=== PATIENT | male | born 1970 | race Caucasian/White ===

== ENCOUNTER 2017-12-27 13:30 | Emergency (ER) | payer BC, SELFPAY ==
[2017-12-27 13:31] VITALS: BP 200/118; PULSE 92; RESP 16; TEMP 36.4; O2SAT 98; BMI 21.7
--- NOTE | 2017-12-27 14:36 | ED.VISSUMM ---
- ER Visit Summary Date of Service: 12/27/17 Chief Complaint: Balance is off History of Present Illness: The patient is a 47 M who was walking home from work on Sunday. He slipped on the ice. He fell backwards striking the back of his head. He states he was dazed. He had no loss of conscious. Is not amnestic. He denies headache presently. He denies any double vision, blurred vision or loss of vision. Denies trouble with his hearing or speech. He denies any cardiac, respiratory, urologic symptoms. He did report nausea on Sunday. He is on no anticoagulant or antiplatelet medication. Physical Examination: Blood pressure is elevated 200 118. Head is atraumatic normocephalic. Pupils are equal round reactive. Extraocular muscles are intact. Optic exam reveals normal cup-to-disc ratio and no papilledema. TMs are pearly white with landmarks noted. Nares patent with no drainage. Posterior pharynx without erythema or exudate. Uvula is midline. There is no dysphonia or dysphasia. Trachea is midline. There is no stridor with auscultation of the neck. There is no cervical spine tenderness. Heart is regular without murmur, gallop or rub. S1 and S2 are normal. Lungs are clear to auscultation with good movement of air bilaterally. GCS is 15. Patient is alert and oriented ?3. Motor is 5/5. Sensation is intact. DTRs are symmetric without clonus or Babinski. Cranial nerves II through XII are intact. Finger to nose to finger was performed adequately. It was observed and normal. He is able to walk on heels and toes. Tandem gait was normal. Romberg test with eyes open and eyes closed was normal. There was no truncal ataxia. Test Results: Recent was told he has a concussion and there is no test that needs to be performed to the emergency department to diagnose a concussion. Emergency Department Course and Treatment: Based on the [place] CT head rule and the [place] rule radiological imaging is not indicated. Treatment Plan: Appropriate home-going instructions for concussion Disposition: To home with work excuse Impression: Concussion without loss of consciousness status post fall Accelerated hypertension and known hypertensive patient This note was generated with eComm[employer] software. It may contain incorrect words, spelling, and punctuation that were not noted in review of the chart prior to signing ED Disposition - Plan for ED Patient: Disposition: Home or Assisted Living Chief Complaint: Head Injury Instructions: ED Concussion, ED Hypertension Conf Out Of Control Referrals: Osorio Hastings DO [Primary Care Provider] - 3-5 Days Additional Instructions: You should follow-up with Dr. Hastings in 3-5 days to have your blood pressure reassessed.
[2017-12-27 14:56] VITALS: BP 191/119; PULSE 77; RESP 18
== END 2017-12-27 14:58 | disposition home or self-care (01) ==
PROVIDERS: Emergency Provider Emergency Medicine; Family Provider Family Medicine; PCP Family Medicine
DX: S06.0X0A Concussion without loss of consciousness, initial encounter (principal); W00.0XXA Fall on same level due to ice and snow, initial encounter; Y93.01 Activity, walking, marching and hiking; Y92.9 Unspecified place or not applicable; Y99.9 Unspecified external cause status; I10 Essential (primary) hypertension; Z72.0 Tobacco use
CPT/HCPCS: 99282

== ENCOUNTER 2017-12-29 18:41 | Emergency (ER) | payer BC, SELFPAY ==
[2017-12-29 18:42] VITALS: BP 161/113; PULSE 85; RESP 17; TEMP 37.2; O2SAT 97; BMI 19.9
--- NOTE | 2017-12-29 19:17 | CT_ITS ---
STUDY: CT BRAIN WITHOUT CONTRAST REASON FOR EXAM: Male, 47 years old. TRAUMA, HIT BACK OF HEAD, NO LOC RADIATION DOSAGE (If Supplied By Facility): CTDIvol = ( 44.99 ) mGy, DLP = ( 812.98 ) mGycm TECHNIQUE: Transaxial CT imaging of the brain was performed without administration of intravenous contrast material. COMPARISON: None. FINDINGS: Normal soft tissue structures. Normal calvarium. There are calcifications around the carotid artery. These are noted in the cavernous carotid arteries. There is mild cerebral atrophy with widening of the extra-axial spaces and ventricular dilatation. There are areas of decreased attenuation within the white matter tracts of the supratentorial brain, consistent with microvascular disease changes. Normal basal ganglia and thalami. Normal brainstem. There is mild cerebellar atrophy. There is no intracranial hemorrhage. There are no findings of an acute ischemic infarction. There is mild maxillary sinus disease. CT/Brain/Head without Contrast IMPRESSION: Chronic involutional changes of the brain. There are no acute findings. Electronically Signed: Bro Cantu MD at 20:04 EST , Service support ,
--- NOTE | 2017-12-29 19:17 | ED.VISSUMM ---
- ER Visit Summary Date of Service: 12/29/17 Chief Complaint: Head trauma History of Present Illness: The patient is a 47 M who presents for his second visit for a head trauma that occurred 4 days ago. Patient slipped and fell backwards on ice 4 days ago, hitting the back of his head. He denies loss of consciousness but was seen 2 days later and diagnosed with a concussion. He did not meet criteria for head imaging at that time. Patient came back because he states that he is continuing to have had pain in the occipital region, that is dull and achy, he is having episodes where he will be watching TV and then wake up 45 minutes later but states he did not actually fall asleep. He also is having some disequilibrium and intermittent blurred vision. Patient denies fever, double vision, abdominal pain, nausea or vomiting, or any other symptoms. He denies an overt headache. Patient states he does drink several beers a day, and he did have 4 beers prior to coming in today. He denies any other medical history. He denies being on blood thinners. Physical Examination: Vital signs: afebrile, hypertensive, no hypoxia on room air General: well nourished, well developed, in no distress sitting in a chair awake and alert Skin: warm, dry, no rash, no pallor HEENT: normocephalic and atraumatic; PERRL, EOMI, horizontal nystagmus bilaterally, moist mucous membranes Cardiovascular: regular rate and rhythm without murmurs, no peripheral edema, 2+ pulses all distal extremities Respiratory: No increased work of breathing, lungs are clear to auscultation bilaterally, no rales, rhonchi or wheezing Abdominal: Abdomen is soft, nontender with normoactive bowel sounds, no guarding or rebound, no masses MSK: Moves all extremities, no deformities, normal strength Neuro: Awake and alert, oriented ?4. No facial droop, sensation and motor function intact and symmetric, steady gait, able to walk on toes and heels, heel-to-toe gait is normal Test Results: [] Emergency Department Course and Treatment: Patient presents 4 days after a head trauma with concussive symptoms but is concerned about a possible intracranial hemorrhage. We discussed the risks and benefits of a head CT, and although a head CT is not indicated in this situation, this is patient's second visit and he feels he would have better reassurance that it is just a concussion if he knows there is no intracranial hemorrhage. Because he is a heavy drinker, he might be more prone to a subsequent fall that he does not remember, thus a head CT was performed. No intracranial pathology or skull fracture was noted. Discussed with patient concussive symptoms and that also with him drinking heavily, it may be difficult to tell the difference between concussive symptoms and intoxication or withdrawal. Patient was encouraged to not drinking heavily, especially until he has completely recovered from his head trauma. Patient is to follow-up with his doctor. He will return if any further concerns. Discharge home. Treatment Plan: [] Disposition: [] Impression: Concussion, subsequent visit This note was generated with [email or web address] dictation software. It may contain incorrect words, spelling, and punctuation that were not noted in review of the chart prior to signing ED Disposition - Plan for ED Patient: Disposition: Home or Assisted Living Chief Complaint: Head Injury Instructions: ED Concussion Referrals: Osorio Hastings, [Primary Care Provider] - 1 Week if not improving Additional Instructions: Your head scan showed no bleeding. Please be moderate in your alcohol use, especially while you are having symptoms from a concussion. Please follow-up with your doctor within 1 week if you are not having improvements. If you have any worsening of your condition, please return the emergency department for another evaluation.
--- NOTE | 2017-12-29 19:20 | ED.DCSUM_ITS ---
- ER Visit Summary Date of Service: 12/29/17 Chief Complaint: Head trauma History of Present Illness: The patient is a 47 M who presents for his second visit for a head trauma that occurred 4 days ago. Patient slipped and fell backwards on ice 4 days ago, hitting the back of his head. He denies loss of consciousness but was seen 2 days later and diagnosed with a concussion. He did not meet criteria for head imaging at that time. Patient came back because he states that he is continuing to have had pain in the occipital region, that is dull and achy, he is having episodes where he will be watching TV and then wake up 45 minutes later but states he did not actually fall asleep. He also is having some disequilibrium and intermittent blurred vision. Patient denies fever, double vision, abdominal pain, nausea or vomiting, or any other symptoms. He denies an overt headache. Patient states he does drink several beers a day, and he did have 4 beers prior to coming in today. He denies any other medical history. He denies being on blood thinners. Physical Examination: Vital signs: afebrile, hypertensive, no hypoxia on room air General: well nourished, well developed, in no distress sitting in a chair awake and alert Skin: warm, dry, no rash, no pallor HEENT: normocephalic and atraumatic; PERRL, EOMI, horizontal nystagmus bilaterally, moist mucous membranes Cardiovascular: regular rate and rhythm without murmurs, no peripheral edema, 2 + pulses all distal extremities Respiratory: No increased work of breathing, lungs are clear to auscultation bilaterally, no rales, rhonchi or wheezing Abdominal: Abdomen is soft, nontender with normoactive bowel sounds, no guarding or rebound, no masses MSK: Moves all extremities, no deformities, normal strength Neuro: Awake and alert, oriented ?4. No facial droop, sensation and motor function intact and symmetric, steady gait, able to walk on toes and heels, heel -to-toe gait is normal Test Results: [] Emergency Department Course and Treatment: Patient presents 4 days after a head trauma with concussive symptoms but is concerned about a possible intracranial hemorrhage. We discussed the risks and benefits of a head CT, and although a head CT is not indicated in this situation, this is patient's second visit and he feels he would have better reassurance that it is just a concussion if he knows there is no intracranial hemorrhage. Because he is a heavy drinker, he might be more prone to a subsequent fall that he does not remember, thus a head CT was performed. No intracranial pathology or skull fracture was noted. Discussed with patient concussive symptoms and that also with him drinking heavily, it may be difficult to tell the difference between concussive symptoms and intoxication or withdrawal. Patient was encouraged to not drinking heavily , especially until he has completely recovered from his head trauma. Patient is to follow-up with his doctor. He will return if any further concerns. Discharge home. Treatment Plan: [] Disposition: [] Impression: Concussion, subsequent visit This note was generated with Koz[employer] dictation software. It may contain incorrect words, spelling, and punctuation that were not noted in review of the chart prior to signing ED Disposition - Plan for ED Patient: Disposition: Home or Assisted Living Chief Complaint: Head Injury Instructions: ED Concussion Referrals: Osorio Hastings, [Primary Care Provider] - 1 Week if not improving Additional Instructions: Your head scan showed no bleeding. Please be moderate in your alcohol use, especially while you are having symptoms from a concussion. Please follow-up with your doctor within 1 week if you are not having improvements. If you have any worsening of your condition, please return the emergency department for another evaluation.
[2017-12-29 20:25] VITALS: BP 170/114; PULSE 91; RESP 16; O2SAT 97
--- NOTE | 2017-12-29 20:32 | ED.DEP ---
ED Disposition - Plan for ED Patient: Disposition: Home or Assisted Living Chief Complaint: Head Injury Instructions: ED Concussion Referrals: Osorio Hastings DO [Primary Care Provider] - 1 Week if not improving Additional Instructions: Your head scan showed no bleeding. Please be moderate in your alcohol use, especially while you are having symptoms from a concussion. Please follow-up with your doctor within 1 week if you are not having improvements. If you have any worsening of your condition, please return the emergency department for another evaluation.
[2017-12-29 20:41] VITALS: PULSE 82; RESP 16; O2SAT 99
== END 2017-12-29 20:41 | disposition home or self-care (01) ==
PROVIDERS: Emergency Provider Emergency Medicine; Family Provider Family Medicine; PCP Family Medicine
DX: S06.0X9D Concussion with loss of consciousness of unspecified duration, subsequent encounter (principal); W00.0XXD Fall on same level due to ice and snow, subsequent encounter; I10 Essential (primary) hypertension; Z72.0 Tobacco use
CPT/HCPCS: 70450; 99283

== ENCOUNTER 2018-02-04 13:18 | Inpatient (IN) | payer BC, SELFPAY ==
[2018-02-04] VITALS (13 sets, daily range): BP systolic 147–190; BP diastolic 79–113; PULSE 73–114; RESP 16–22; TEMP 36.9–38.2; O2SAT 97–100; BMI 20.1; BMI 19.5
--- NOTE | 2018-02-04 13:52 | EKG12_ITS ---
Test Reason : SUBSTANCE ABUSE Blood Pressure : / mmHG Vent. Rate : 110 BPM Atrial Rate : 110 BPM P-R Int : 170 ms QRS Dur : 090 ms QT Int : 322 ms P-R-T Axes : 065 078 043 degrees QTc Int : 435 ms Sinus tachycardia Otherwise normal ECG Confirmed by ZELALEM GUAMAN MD ([id number]), supervising editor trailer YARELIS LYNCH ([id number] on 02/07/2018 2:42:24 PM Referred By: SERGIO Confirmed By:ZELALEM GUAMAN MD
[2018-02-04 14:10] LABS: Absolute Neutrophil Count 4.4 X10^3/uL (2.0-7.7); Basophil# 0.01 X10^3/uL; Basophil% 0.2 % (0-1); Hematocrit 32.9 % (40-54); Lymphocyte % 3.9 % (19-41); Mean Corp Hgb Conc 33.4 g/gl (32-36); Mean Corpuscular Hgb 31.6 pg (27.0-32.0); Mean Corpuscular Volume 94.5 fL (80-94); Mean Platelet Vol. 10.7 fl (6.2-12.0); Monocyte# 0.55 X10^3/uL; Monocyte% 10.7 % (0-10); Neutrophil # 4.37 X10^3/uL (2.7-7.7); RBC Distribution Width SD 52.9 fl (35.1-43.9); Red Blood Count 3.48 M/mm3 (4.6-6.2); White Blood Count 5.1 K/mm3 (4.4-11.0)
[2018-02-04 14:13] LABS: Platelet Count 25 K/mm3 (150-450)
[2018-02-04] MEDS: 0.9% Normal Saline 1,000 ML 1000 ML IV (14:13)
[2018-02-04] MEDS: Ondansetron 4 MG/2 ML Vial IV (14:13)
[2018-02-04 14:14] LABS: Differential Indicated SCAN CRITERIA MET; POSITIVE COUNT YES; POSITIVE DIFFERENTIAL YES; POSITIVE MORPHOLOGY NO
[2018-02-04] MEDS: LORazepam 2 MG/ML Syringe 1 MG IV (14:14)
[2018-02-04 14:17] LABS: ALB/GLOB Ratio 0.8 RATIO (0.9-2.4); AST(SGOT) 161 U/L (15-37); Alanine Aminotransfer ALT/SGPT 57 U/L (16-61); Albumin, Serum 3.6 g/dL (3.2-5.0); Alkaline Phosphatase 507 U/L (45-117); Anion Gap 11 (5-15); BUN 18 mg/dL (7-18); BUN/Creat Ratio 14.4 RATIO (10-20); Calcium,Total 8.8 mg/dL (8.5-10.1); Chloride 108 mmol/L (98-107); Creatinine, Serum 1.25 mg/dL (0.70-1.30); EST Glomerular Filtration Rate 66 mL/min (>60); Est Glom Filt Rate - Afr Amer 80 mL/min (>60); Estimated Creatinine Clearance 73.04 ml/min; Globulin 4.7 g/dL (2.2-4.2); Glucose 133 mg/dL (74-106); Potassium 4.2 mmol/L (3.5-5.1); Protein, Total 8.3 g/dL (6.4-8.2); Sodium Level 141 mmol/L (136-145)
--- NOTE | 2018-02-04 14:24 | ED.RN ---
Platelet count 25, physician notified.
[2018-02-04 14:29] LABS: Alcohol, Blood (Medical)-Serum < 3.0 mg/dL
[2018-02-04 15:08] LABS: Mucous, Urine 0 SEEN /hpf (<or=2+)
[2018-02-04 15:12] LABS: Color, Urine Yellow (Yellow); Glucose, Dipstick Normal (Normal); Ketone-Dipstick 50 mg/dl (Negative); Leukocyte Esterase-Dipstick 25 /ul (Negative); Nitrite-Dipstick Negative (Negative); Occult Blood-Urine 150 /ul (Negative); Protein-Dipstick 30 mg/dl (Negative); Specific Gravity, Urine 1.015 (1.002-1.030); Urine Clarity Clear (Clear); Urine Urobilinogen 8 mg/dl (Normal)
[2018-02-04 15:19] LABS: Urine Bilirubin Dipstick 3 mg/dL (Negative)
[2018-02-04 15:23] LABS: Bacteria 1+ /hpf (None Seen); Red Blood Cells-Urine 0-5 SEEN /hpf (0-5); Squamous Epithelial Cells - UA 0-5 SEEN /hpf (0-5); White Blood Cells 0-5 SEEN /hpf (0-5)
[2018-02-04 15:24] LABS: Hyaline Cast 0-5 SEEN /lpf (0-5)
[2018-02-04 15:25] LABS: Amphetamine Urine VISTA NEGATIVE (<1000 ng/mL); Barbiturate Urine VISTA NEGATIVE (< 200 ng/mL); Benzodiazepine Urine VISTA NEGATIVE (< 200 ng/mL); Cocaine Urine VISTA NEGATIVE (< 300 ng/mL); Ecstacy Urine VISTA NEGATIVE (< 500 ng/mL); Methadone Urine VISTA NEGATIVE (< 300 ng/mL); PCP Urine VISTA NEGATIVE (< 25 ng/mL); THC Urine VISTA NEGATIVE (< 50 ng/mL); Vista UDS pH Range 6
--- NOTE | 2018-02-04 15:47 | ED.VISSUMM ---
- ER Visit Summary Date of Service: 02/04/18 Chief Complaint: Alcohol withdrawal History of Present Illness: The patient is a 47 M with alcohol withdrawal. Drink was yesterday evening. He was drinking a 12 pack of beer per day. No other drug use. He has a history of DTs but no history of seizures. His last clean and sober. Was about 6-8 months ago. He also reports a history of hypertension. Physical Examination: Hypertensive and tachycardic. Actively vomiting. Appears very uncomfortable. Heart tachycardic but regular. Lungs clear. Abdomen soft and nontender. Moves all extremities. No focal or lateralizing abnormalities grossly. His any suicidal or homicidal thoughts. Test Results: Hemoglobin 11 and platelets 25. CMP unremarkable. Urinalysis unremarkable. Tox screen and alcohol unremarkable. EKG shows sinus tach with no signs of acute ischemia or infarction. Emergency Department Course and Treatment: She received fluids, Ativan, and Zofran while awaiting results. On reassessment, heart rate is 100. He feels much better. He looks objectively better. I believe patient would benefit from inpatient evaluation and treatment for alcohol withdrawal. I spoke with the hospitalist who will admit. Treatment Plan: As above Disposition: Admission to [facility] with telemetry Impression: 1. Alcohol withdrawal 2. Anemia 2. Thrombocytopenia This note was generated with Algot[employer] dictation software. It may contain incorrect words, spelling, and punctuation that were not noted in review of the chart prior to signing ED Disposition - Plan for ED Patient: Chief Complaint: Subst Abuse Referrals: Osorio Hastings DO [Primary Care Provider] -
--- NOTE | 2018-02-04 15:50 | ED.DCSUM_ITS ---
- ER Visit Summary Date of Service: 02/04/18 Chief Complaint: Alcohol withdrawal History of Present Illness: The patient is a 47 M with alcohol withdrawal. Drink was yesterday evening. He was drinking a 12 pack of beer per day. No other drug use. He has a history of DTs but no history of seizures. His last clean and sober. Was about 6-8 months ago. He also reports a history of hypertension. Physical Examination: Hypertensive and tachycardic. Actively vomiting. Appears very uncomfortable. Heart tachycardic but regular. Lungs clear. Abdomen soft and nontender. Moves all extremities. No focal or lateralizing abnormalities grossly. His any suicidal or homicidal thoughts. Test Results: Hemoglobin 11 and platelets 25. CMP unremarkable. Urinalysis unremarkable. Tox screen and alcohol unremarkable. EKG shows sinus tach with no signs of acute ischemia or infarction. Emergency Department Course and Treatment: She received fluids, Ativan, and Zofran while awaiting results. On reassessment, heart rate is 100. He feels much better. He looks objectively better. I believe patient would benefit from inpatient evaluation and treatment for alcohol withdrawal. I spoke with the hospitalist who will admit. Treatment Plan: As above Disposition: Admission to [facility] with telemetry Impression: 1. Alcohol withdrawal 2. Anemia 2. Thrombocytopenia This note was generated with [employer] dictation software. It may contain incorrect words, spelling, and punctuation that were not noted in review of the chart prior to signing ED Disposition - Plan for ED Patient: Chief Complaint: Subst Abuse Referrals: Osorio Hastings DO [Primary Care Provider] -
--- NOTE | 2018-02-04 15:59 | PCM.HP.STD ---
Problem List (1) Alcohol withdrawal Status: Acute (2) Vomiting Status: Acute Qualifiers: Vomiting type: hematemesis (3) Thrombocytopenia Status: Chronic (4) Esophageal varices Status: Chronic (5) Alcoholism Status: Chronic (6) Depression Status: Chronic (7) Hypertension Status: Chronic History of Present Illness Date of Admission: 02/04/18 Chief Complaint: Nausea and vomiting The patient is a 47 year old M alcoholic who presents to the ER with severe nausea and vomiting. This began last night. He drinks about a 12 pack per day, last sober in 2016. He stated that he initially vomited up a large amount of red blood, and that the rest of the episodes of vomiting had small amounts of red blood. This morning he moved his bowels and saw red blood in that as well. He states that he has a history of bleeding esophageal varices and has had EGDs in the past. His platelets are low at 25 and he states that he has had this in the past as well. He has been inpatient for detox one other time several years ago, and denies having any witnessed seizures, or admission requiring intubation and sedation, but does have a history of DTs. He has some mild LLQ abdominal discomfort. He has no fevers or chills. He feels somewhat lightheaded. [] Past Medical History Past Medical History (Chronic Problems): Chronic Problems Thrombocytopenia (Chronic) Esophageal varices (Chronic) Alcoholism (Chronic) Depression (Chronic) Hypertension (Chronic) Allergies No Known Allergies Allergy (Verified 02/04/18 13:27) Home Medications: Ambulatory Orders Medication Instructions Recorded Multivitamins,Ther W-Minerals 1 tablet PO DAILY 08/13/14 [Multivitamin With Minerals] Losartan Potassium 50 mg PO DAILY 12/27/17 Prednisone 10 mg PO PRN PRN 12/27/17 Clonidine HCl 0.1 mg PO 4X/DAY 02/04/18 Surgical History: - - Right and left wrist surgery secondary to fracture Psychiatric History: Depression Lives: Alone Smoking Status: Current every day smoker Tobacco Use: Cigarettes Alcohol: Heavy Drugs: None - *Family History Maternal History Items: - - brain aneurysm Paternal History Items: Hypertension, - - alcoholism Sibling History Items: No pertinent history Review of Systems Constitutional: Denies: Chills, Fever, Weight Change HEENT: Denies: Head Aches, Sinus Congestion, Sinus Drainage Cardiovascular: Denies: Chest Pain, Palpitations Respiratory: Denies: Cough, Shortness of breath at rest, Sputum production Gastrointestinal: Reports: Abdominal Pain, Hematemesis, Hematochezia, Nausea, Vomiting Genitourinary: Denies: Dysuria Musculoskeletal: Denies: Joint Pain, Joint Tenderness Skin: Denies: Rash, Wounds Neurological: Denies: Numbness, Tingling, Focal weakness Psychiatric: Denies: Anxiety, Depression, Homicidal Ideations, Suicidal Ideations Hematologic/ Lymphatic: Denies: Easy Bruising, Easy Bleeding VTE Information - Inpt Only VTE Present on Admission: No VTE Mechan Device Prophylaxis: SCD's VTE Pharm Prophylaxis ordered?: No Reason prophylaxis not ordered:: Medical Contraindication Patient Problems: Active and Suspected Problems Vomiting (Acute) - Physical Exam General: Alert, Oriented x3, Cooperative HEENT: Atraumatic, PERRLA, EOMI, Normocephalic Neck: Supple, No JVD, Negative Carotid Bruits Lungs: Clear to auscultation, Normal air movement Cardiovascular: Regular rate, No murmurs Abdomen: Bowel Sounds Present, Soft, Non Tender Extremities: No edema, Capillary Refill Less than 3 Seconds Skin: No rashes, No breakdown Musculoskeletal: No Tenderness to Palpation of Joints or Extremities Neurological: Cranial nerves II-XII grossly intact Psych/Mental Status: Normal Affect, Appropriate, Alert and oriented to time, place, person, mood and affect Vital Signs Temp Pulse Resp BP Pulse Ox 99.1 F 96 16 182/90 H 99 02/04/18 13:21 02/04/18 15:17 02/04/18 15:17 02/04/18 15:17 02/04/18 15:17 Oxygen Delivery Method Room Air Weight: 69.2 kg Body Mass Index (BMI) 20.1 Laboratory Tests Past 24 Hrs 02/04/18 02/04/18 02/04/18 13:53 13:53 13:53 WBC 5.1 RBC 3.48 L Hgb 11.0 L Hct 32.9 L MCV 94.5 H MCH 31.6 MCHC 33.4 RDW 16.0 H RDW Differential 52.9 H Plt Count 25 L* MPV 10.7 Immature Gran % (Auto) 0.200 Neut % (Auto) 85.0 H Lymph % (Auto) 3.9 L [place] % (Auto) 10.7 H Eos % (Auto) 0.0 Baso % (Auto) 0.2 Absolute Neuts (auto) 4.4 Absolute Lymphs (auto) 0.20 L Total Counted Not Reportable Differential Comment COMMENT Diff Path Review May foll Sodium 141 Potassium 4.2 Chloride 108 H Carbon Dioxide 22.0 Anion Gap 11 BUN 18 Creatinine 1.25 Estim Creat Clear Calc 73.04 Est GFR (MDRD) Af Amer 80 Est GFR (MDRD) Non-Af 66 BUN/Creatinine Ratio 14.4 Glucose 133 H Calcium 8.8 Total Bilirubin 3.30 H AST 161 H ALT 57 Alkaline Phosphatase 507 H Total Protein 8.3 H Albumin 3.6 Globulin 4.7 H Albumin/Globulin Ratio 0.8 L Urine Color Urine Clarity Urine pH Ur Specific [place] Urine Protein Urine Glucose (UA) Urine Ketones Urine Occult Blood Urine Nitrite Urine Bilirubin Urine Urobilinogen Ur Leukocyte Esterase Urine RBC Urine WBC Ur Squamous Epith Cells Urine Bacteria Hyaline Casts Urine Mucus Urine Opiates Screen Urine Methadone Screen Ur Barbiturates Screen Ur Phencyclidine Scrn Ur Amphetamines Screen U Methamphetamin-MDMA U Benzodiazepines Scrn Urine Cocaine Screen U Cannabinoids Screen Ur Drug Screen Comment Ethyl Alcohol < 3.0 02/04/18 02/04/18 15:01 15:01 WBC RBC Hgb Hct MCV MCH MCHC RDW RDW Differential Plt Count MPV Immature Gran % (Auto) Neut % (Auto) Lymph % (Auto) [place] % (Auto) Eos % (Auto) Baso % (Auto) Absolute Neuts (auto) Absolute Lymphs (auto) Total Counted Differential Comment Diff Path Review Sodium Potassium Chloride Carbon Dioxide Anion Gap BUN Creatinine Estim Creat Clear Calc Est GFR (MDRD) Af Amer Est GFR (MDRD) Non-Af BUN/Creatinine Ratio Glucose Calcium Total Bilirubin AST ALT Alkaline Phosphatase Total Protein Albumin Globulin Albumin/Globulin Ratio Urine Color Yellow Urine Clarity Clear Urine pH 6.0 Ur Specific [place] 1.015 Urine Protein 30 H Urine Glucose (UA) Normal Urine Ketones 50 H Urine Occult Blood 150 H Urine Nitrite Negative Urine Bilirubin 3 H Urine Urobilinogen 8 H Ur Leukocyte Esterase 25 H Urine RBC 0-5 SEEN Urine WBC 0-5 SEEN Ur Squamous Epith Cells 0-5 SEEN Urine Bacteria 1+ Hyaline Casts 0-5 SEEN Urine Mucus 0 SEEN Urine Opiates Screen NEGATIVE Urine Methadone Screen NEGATIVE Ur Barbiturates Screen NEGATIVE Ur Phencyclidine Scrn NEGATIVE Ur Amphetamines Screen NEGATIVE U Methamphetamin-MDMA NEGATIVE U Benzodiazepines Scrn NEGATIVE Urine Cocaine Screen NEGATIVE U Cannabinoids Screen NEGATIVE Ur Drug Screen Comment Ethyl Alcohol Assessment/Plan Active and Suspected Problems Vomiting (Acute) 1. Acute alcohol withdrawal - initiate CIWA protocol, thiamine and folic acid supplementation. Ativan + librium. Drinks 12 beers/day. Start IV fluids. Check Mag/Phos 2. Hematemesis and Bloody stools - hx bleeding esophageal varices, very concerning with thrombocytopenia. Provide 5pack platelets. Serial H/H. IV protonix. Consult to general surgery. T/S. Clear liquid diet. 3. Elevated LFTs - abdominal US to assess for ascites. Check Hepatitis panel 4. Acute blood loss anemia 2/2 #2 - plan as above 5. HTN - significantly elevated. start home meds if able to tolerate. PRN lopressor/hydralazine if remains significantly elevated. DVT ppx: SCDs, no chemoppx with bleeding DC planning: pending clinical course This patient was seen by Fan Lieberman PA-C under the supervision of Doctor Miles.
--- NOTE | 2018-02-04 16:03 | NURSING ---
206 ACUTE ETOH WITHDRAWAL, HX DTS WHITE
--- NOTE | 2018-02-04 16:10 | US_ITS ---
STUDY: ABDOMINAL ULTRASOUND REASON FOR EXAM: Male, 47 years old. Elevated LFT TECHNIQUE: Transabdominal ultrasound was performed with real-time and static gutierrez scale imaging. TECHNICAL QUALITY: Adequate. COMPARISON: None. FINDINGS: Liver: The liver measures 18.2 cm. There is heterogeneous echogenicity of the liver. The bile ducts are within normal limits. There is hepatic color flow. The direction of portal flow is hepatopetal. There is no demonstrated mass lesion. Portal vein measurement: Gallbladder: Normal distended gallbladder. The gallbladder wall measures 2 mm. There is a negative sonographic Pandey's sign. There is no pericholecystic fluid. There are multiple gallstones. Common Bile Duct (C.B.D.): The common bile duct measures 4 mm. Pancreas: Normal size of the head, body and tail of the pancreas. There is normal echogenicity of the pancreas. There is no demonstrated pancreatic mass or cyst. Spleen: Spleen is enlarged measuring 14 cm. Right Kidney: Normal size of the right kidney. The right kidney measures 10.5 x 5.3 x 6.2 cm. Normal renal cortex. The right cortex measures 1.4 cm. There is no demonstrated renal mass or cyst. There is no right hydronephrosis. Left Kidney: Normal size of the left kidney. The left kidney measures 12.6 x 4.6 x 5.3 cm. Normal renal cortex. The left cortex measures 1.8 cm. There are small cysts the largest measuring 5 mm. There is no left hydronephrosis. Aorta: No evidence for aortic aneurysm I.V.C.: The IVC is patent. There is no ascites. US/Abdomen Complete IMPRESSION: Hepatosplenomegaly due to hepatocellular disease. Cholelithiasis without evidence for acute cholecystitis Electronically Signed: José Miguel Baptiste MD at 19:33 EDT , Service support ,
[2018-02-04] MEDS: Ondansetron ODT 4 MG Tablet PO (17:26)
[2018-02-04] MEDS: Lactated Ringers 1,000 ML 125 ML IV (17:26)
[2018-02-04] MEDS: cloNIDine HCl 0.1 MG Tablet PO ×2 (17:28→22:18)
[2018-02-04] MEDS: chlordiazePOXIDE 25 MG Capsule 50 MG PO (17:30)
[2018-02-04 18:01] LABS: Hemoglobin 10.1 g/dl (13.0-16.5)
[2018-02-04] MEDS: QUEtiapine 25 MG Tablet PO (18:13)
[2018-02-04 18:28] LABS: Magnesium 2.3 mg/dL (1.6-2.6); Phosphorus 2.4 mg/dL (2.5-4.9)
--- NOTE | 2018-02-04 19:12 | CT_ITS ---
STUDY: CT ABDOMEN AND PELVIS WITHOUT CONTRAST REASON FOR EXAM: Male, 47 years old. Pain with nausea and vomiting RADIATION DOSAGE (If Supplied By Facility): CTDIvol = ( 6.64 ) mGy, DLP = ( 360.04 ) mGycm TECHNIQUE: Transaxial images were obtained from the dome of the diaphragm to the symphysis pubis without oral contrast, and without intravenous contrast. Sagittal and coronal images were reconstructed. Individualized dose optimization techniques were used for this CT. COMPARISON: None. FINDINGS: There is minor atelectasis within the dependent portion of the lungs.. The visualized portions of the heart are within normal limits. Small hiatal hernia is present Liver is enlarged more pronounced on the left and there is multilobulated appearance consistent with cirrhosis. There are no dilated ducts. There are focal areas of decreased echogenicity consistent with multiple space-occupying lesions which are poorly defined. MRI recommended for further evaluation There is borderline splenomegaly . There are multiple gallstones but no evidence for acute cholecystitis. There are extensive gastroesophageal, perigastric, splenorenal and retroperitoneal varices consistent with portal hypertension. Normal pancreas. Mild diffuse mesenteric edema but no appreciable ascites. Normal bilateral adrenal glands. There are multiple bilateral renal calculi. No evidence for hydronephrosis or ureteral calculus. There is no definitive evidence for renal mass given limited unenhanced nature of the study. There is concentric thickening of the escobedo of the gastric fundus with narrowing of the lumen which may be consistent with nonspecific gastritis.. There is mild nonspecific ileus but no evidence for small bowel obstruction. Normal colon. No evidence for acute appendicitis. Atherosclerotic calcification of the aorta without evidence for aneurysm.. Normal inferior vena cava. Normal retroperitoneum. Normal urinary bladder. Nonspecific enlargement of the prostate. Normal abdominal wall. Normal osseous structures. CT/Abdomen/Pelvis without Cont IMPRESSION: Findings consistent with hepatic cirrhosis and splenomegaly with changes of portal hypertension. There appear to be multiple poorly defined space-occupying lesions. MRI would be helpful for more definitive evaluation Cholelithiasis without definitive evidence for acute cholecystitis. Findings consistent with nonspecific gastritis. Bilateral nephrolithiasis without evidence for hydronephrosis or ureteral calculus Other findings as above Electronically Signed: José Miguel Baptiste MD at 20:22 EDT , Service support ,
--- NOTE | 2018-02-04 19:13 | CON.PCM_ITS ---
Reason for Consult Date of Consultation: 02/04/18 History of Present Illness: The patient is a 47 year old M admitted for alcohol withdrawal, impending delirium tremens , and hematemesis secondary to vomiting. the patient has a long -standing history of alcohol abuse. He states he has had endoscopy performed at least 10 years back when he lived in [place], which demonstrated esophageal varices. The patient was admitted to [facility] in June 2013 with alcohol withdrawal symptoms, alcohol abuse , alcoholic hepatitis, and GI bleeding at which point he had upper endoscopy which demonstrated significant varices which were banded at that time. Ultrasound was obtained which demonstrated a nodular liver consistent with cirrhosis and is felt to be negative for ascites. the patient notes he usually drinks 12 or so beers per day and the past has been drinking vodka heavily. 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 He attempted again to stop his alcohol intake. He noted shaking, agitation, nausea, and vomiting he initially noted vomiting his foodstuffs. Later he noted blood in his vomitus. he presented to [facility] emergency department. He was initially somewhat agitated, but after receiving IV benzodiazepines , he stabilized. his hemoglobin dropped from 11 to 10gm. his platelet count is 25,000 platelets. his bilirubin is elevated at 3.3. coags are pending. He is currently resting comfortably. He has no sign of ongoing bleeding. Past Medical History Past Medical History (Chronic Problems): Chronic Problems Thrombocytopenia (Chronic) Esophageal varices (Chronic) Alcoholism (Chronic) Depression (Chronic) Hypertension (Chronic) Allergies No Known Allergies Allergy (Verified 02/04/18 13:27) Home Medications: Ambulatory Orders Medication Instructions Recorded Multivitamins,Ther W-Minerals 1 tablet PO DAILY 08/13/14 [Multivitamin With Minerals] Losartan Potassium 50 mg PO DAILY 12/27/17 Prednisone 10 mg PO PRN PRN 12/27/17 Clonidine HCl 0.1 mg PO 4X/DAY 02/04/18 Surgical History: - - Right and left wrist surgery secondary to fracture Psychiatric History: Depression Lives: Alone Smoking Status: Current every day smoker Tobacco Use: Cigarettes Alcohol: Heavy Drugs: None - *Family History Maternal History Items: - - brain aneurysm Paternal History Items: Hypertension, - - alcoholism Sibling History Items: No pertinent history Review of Systems Constitutional: Reports: Anorexia, Malaise, Weakness Gastrointestinal: Reports: Hematemesis, Vomiting Patient Problems: Active and Suspected Problems Vomiting (Acute) - Physical Exam General: Alert, Oriented x3, - - icteric. Pupils Lungs: Normal air movement, Rhonchi - bases Cardiovascular: Regular rate, Regular Rhythm Abdomen: Bowel Sounds Present, Soft, Non Tender, Hepatomegaly - -likely,, Splenomegaly - likely, ? shifting dullness ? mild ascites Vital Signs Temp Pulse Resp BP Pulse Ox 99.7 F H 96 16 152/88 H 97 02/04/18 17:58 02/04/18 18:10 02/04/18 17:58 02/04/18 17:58 02/04/18 16:57 Oxygen Delivery Method Room Air Weight: 67 kg Body Mass Index (BMI) 19.5 Laboratory Tests Past 24 Hrs 02/04/18 02/04/18 02/04/18 17:33 17:33 17:33 Hgb 10.1 L Hct 31.0 L Phosphorus 2.4 L Magnesium 2.3 Blood Type Pending Assessment/Plan Active and Suspected Problems Vomiting (Acute) alcoholic liver disease, alcohol withdrawal, impending delirium tremens, hematemesis, history of esophageal varices I have discussed with the patient and Dr. Miles, the severe risk with bleeding varices and severe thrombocytopenia. His hemoglobin overall seems relatively stable. Hopefully, this was a Mary-Henderson tear was vomiting and not variceal bleeding. If the patient has significantly increased or recurrent bleeding-may require emergency upper endoscopy with possible banding. We discussed if he has unstable bleeding. The next step would be transfer for emergency TIPS procedure. I plan to obtain an ammonia level as a baseline in the event that emergency TIPS is considered. The patient will be transfused platelets. He is currently being appropriately treated for his alcohol withdrawal symptoms. I plan to obtain a CT scan of the abdomen and pelvis to assess for hepatosplenomegaly and other sequelae of cirrhosis including ascites.
--- NOTE | 2018-02-04 21:28 | RAD_ITS ---
STUDY: X-RAY CHEST REASON FOR EXAM: Male, 47 years old. Cough TECHNIQUE: PA and lateral COMPARISON: November 17, 2014 FINDINGS: The lungs are clear and expanded. There is no demonstrated pleural abnormality. Normal size heart. Normal mediastinum and venkatesh. Normal visualized pulmonary arteries. Normal visualized aortic arch and descending thoracic aorta. Normal visualized thoracic spine. Normal visualized ribs, clavicles, and shoulders. There is no demonstrated abnormality of the visualized soft tissue structures of the upper abdomen. No significant change since prior study RAD/Chest PA and Lateral IMPRESSION: No acute cardiopulmonary pathology Electronically Signed: José Miguel Baptiste MD at 22:01 EDT , Service support ,
[2018-02-04] MEDS: traZODone 50 MG Tablet PO (22:18)
[2018-02-04] MEDS: 0.9% NaCl Peripheral Flush Adult/Peds IV (22:19)
[2018-02-05] VITALS (11 sets, daily range): BP systolic 135–156; BP diastolic 84–99; PULSE 53–75; RESP 16–18; TEMP 36.6–37.3; O2SAT 97–100
[2018-02-05] MEDS: chlordiazePOXIDE 25 MG Capsule 50 MG PO ×4 (00:03→20:44)
[2018-02-05 01:47] LABS: Hematocrit 29.3 % (40-54); Hemoglobin 9.5 g/dl (13.0-16.5); Mean Corp Hgb Conc 32.4 g/gl (32-36); Mean Corpuscular Hgb 31.6 pg (27.0-32.0); Mean Corpuscular Volume 97.3 fL (80-94); Mean Platelet Vol. 9.8 fl (6.2-12.0); RBC Distribution Width SD 56.7 fl (35.1-43.9); Red Blood Count 3.01 M/mm3 (4.6-6.2); White Blood Count 3.5 K/mm3 (4.4-11.0)
[2018-02-05 01:54] LABS: International Normalized Ratio 1.2; Prothrombin Time (Protime)PT. 15.1 SECONDS (11.7-14.9)
[2018-02-05 02:07] LABS: Scan Indicated on CBC? Y/N YES- FLAGS NOTED
[2018-02-05 02:08] LABS: Differential Comment SCAN; Platelet Count 34 K/mm3 (150-450)
[2018-02-05] MEDS: cloNIDine HCl 0.1 MG Tablet PO ×5 (02:21→21:59)
[2018-02-05 05:16] LABS: Absolute Lymphocyte Count 0.34 X10^3/ul (0.83-4.51); Absolute Neutrophil Count 2.3 X10^3/uL (2.0-7.7); Basophil# 0.01 X10^3/uL; Basophil% 0.3 % (0-1); Eosinophils% 3.1 % (0-5); Hematocrit 29.4 % (40-54); Hemoglobin 9.8 g/dl (13.0-16.5); Lymphocyte # 0.34 X10^3/ul (4.0); Lymphocyte % 10.4 % (19-41); Mean Corp Hgb Conc 33.3 g/gl (32-36); Mean Corpuscular Hgb 32.5 pg (27.0-32.0); Mean Corpuscular Volume 97.4 fL (80-94); Mean Platelet Vol. 10.8 fl (6.2-12.0); Monocyte# 0.53 X10^3/uL; Monocyte% 16.3 % (0-10); Neutrophil # 2.27 X10^3/uL (2.7-7.7); Neutrophil % 69.6 % (47-70); Red Blood Count 3.02 M/mm3 (4.6-6.2); White Blood Count 3.3 K/mm3 (4.4-11.0)
[2018-02-05 05:18] LABS: Differential Indicated SCAN CRITERIA MET; POSITIVE COUNT YES; POSITIVE DIFFERENTIAL YES; POSITIVE MORPHOLOGY NO
[2018-02-05 05:33] LABS: ALB/GLOB Ratio 0.8 RATIO (0.9-2.4); AST(SGOT) 140 U/L (15-37); Alanine Aminotransfer ALT/SGPT 51 U/L (16-61); Albumin, Serum 3.1 g/dL (3.2-5.0); Alkaline Phosphatase 410 U/L (45-117); Anion Gap 11 (5-15); BUN 15 mg/dL (7-18); Chloride 105 mmol/L (98-107); EST Glomerular Filtration Rate 86 mL/min (>60); Est Glom Filt Rate - Afr Amer 104 mL/min (>60); Globulin 3.9 g/dL (2.2-4.2); Glucose 80 mg/dL (74-106); Potassium 3.3 mmol/L (3.5-5.1); Sodium Level 140 mmol/L (136-145)
[2018-02-05 06:08] LABS: Platelet Count 32 K/mm3 (150-450)
[2018-02-05] MEDS: Thiamine Hydrochloride 100 MG Tablet PO (07:50)
[2018-02-05] MEDS: Multivitamins,Ther W-Minerals Tablet 1 TABLET PO (07:50)
[2018-02-05] MEDS: Folic Acid 1 MG Tablet PO (07:50)
[2018-02-05 08:32] LABS: Pathologist Review Reviewed
[2018-02-05] MEDS: 0.9% NaCl Peripheral Flush Adult/Peds IV ×2 (08:55→12:45)
[2018-02-05] MEDS: Losartan Potassium 50 MG Tablet PO (09:03)
[2018-02-05] MEDS: Docusate Sodium 100 MG Capsule PO ×2 (09:03→21:59)
[2018-02-05 10:17] LABS: Hematocrit 30.2 % (40-54); Hemoglobin 9.8 g/dl (13.0-16.5)
--- NOTE | 2018-02-05 13:06 | PN_ITS ---
<Fan Lieberman - Last Filed: 02/05/18 12:59> Patient Problems: Active and Suspected Problems Vomiting (Acute) Subjective: Pt doing well this AM. He has not vomited since being in the ER. He has no nausea. He ate breakfast this AM with no nausea. No dizziness or LH. He has a tremor in his BLUE. No hallucinations. No fever or chills. No SOB/cough. No abdominal distention. No LE edema. - Physical Exam General: Alert, Oriented x3, Cooperative HEENT: Atraumatic, PERRLA, EOMI, Normocephalic Neck: Supple, No JVD, Negative Carotid Bruits Lungs: Clear to auscultation, Normal air movement Cardiovascular: Regular rate, No murmurs Abdomen: Bowel Sounds Present, Soft, Non Tender Extremities: No edema, Capillary Refill Less than 3 Seconds Skin: No rashes, No breakdown Musculoskeletal: No Tenderness to Palpation of Joints or Extremities Neurological: Cranial nerves II-XII grossly intact, - - Upper extremity tremor. Psych/Mental Status: Normal Affect, Appropriate, Alert and oriented to time, place, person, mood and affect Vital Signs Temp Pulse Resp BP Pulse Ox 99.1 F 68 18 150/99 H 98 02/05/18 10:00 02/05/18 10:00 02/05/18 10:00 02/05/18 10:00 02/05/18 10:00 Oxygen Delivery Method Room Air Weight: 67 kg Body Mass Index (BMI) 19.5 Intake and Output for Last 24 Hours 02/03/18 02/04/18 02/05/18 23:59 23:59 23:59 Intake Total 1346 / 1346 3002 / 3002 Output Total 1625 / 1625 Balance 1346 / 1346 1377 / 1377 Laboratory Tests Past 24 Hrs 02/04/18 02/04/18 02/04/18 17:33 17:33 17:33 WBC RBC Hgb 10.1 L Hct 31.0 L MCV MCH MCHC RDW RDW Differential Plt Count MPV Immature Gran % (Auto) Neut % (Auto) Lymph % (Auto) Hettinger % (Auto) Eos % (Auto) Baso % (Auto) Absolute Neuts (auto) Absolute Lymphs (auto) Total Counted Differential Comment Diff Path Review PT INR Sodium Potassium Chloride Carbon Dioxide Anion Gap BUN Creatinine Estim Creat Clear Calc Est GFR (MDRD) Af Amer Est GFR (MDRD) Non-Af BUN/Creatinine Ratio Glucose Calcium Phosphorus 2.4 L Magnesium 2.3 Total Bilirubin AST ALT Alkaline Phosphatase Ammonia Total Protein Albumin Globulin Albumin/Globulin Ratio Blood Type A POSITIVE 02/05/18 02/05/18 02/05/18 01:24 01:24 04:56 WBC 3.5 L 3.3 L RBC 3.01 L 3.02 L Hgb 9.5 L 9.8 L Hct 29.3 L 29.4 L MCV 97.3 H 97.4 H MCH 31.6 32.5 H MCHC 32.4 33.3 RDW 16.0 H 16.0 H RDW Differential 56.7 H 55.0 H Plt Count 34 L* 32 L* MPV 9.8 10.8 Immature Gran % (Auto) 0.300 Neut % (Auto) 69.6 Lymph % (Auto) 10.4 L Hettinger % (Auto) 16.3 H Eos % (Auto) 3.1 Baso % (Auto) 0.3 Absolute Neuts (auto) 2.3 Absolute Lymphs (auto) 0.34 L Total Counted Not Reportable Differential Comment SCAN Diff Path Review May foll PT 15.1 H INR 1.2 Sodium Potassium Chloride Carbon Dioxide Anion Gap BUN Creatinine Estim Creat Clear Calc Est GFR (MDRD) Af Amer Est GFR (MDRD) Non-Af BUN/Creatinine Ratio Glucose Calcium Phosphorus Magnesium Total Bilirubin AST ALT Alkaline Phosphatase Ammonia Total Protein Albumin Globulin Albumin/Globulin Ratio Blood Type 02/05/18 02/05/18 02/05/18 04:56 04:56 10:05 WBC RBC Hgb 9.8 L Hct 30.2 L MCV MCH MCHC RDW RDW Differential Plt Count MPV Immature Gran % (Auto) Neut % (Auto) Lymph % (Auto) Hettinger % (Auto) Eos % (Auto) Baso % (Auto) Absolute Neuts (auto) Absolute Lymphs (auto) Total Counted Differential Comment Diff Path Review PT INR Sodium 140 Potassium 3.3 L Chloride 105 Carbon Dioxide 24.0 Anion Gap 11 BUN 15 Creatinine 1.00 Estim Creat Clear Calc 88.40 Est GFR (MDRD) Af Amer 104 Est GFR (MDRD) Non-Af 86 BUN/Creatinine Ratio 15.0 Glucose 80 Calcium 8.0 L Phosphorus Magnesium Total Bilirubin 2.50 H AST 140 H ALT 51 Alkaline Phosphatase 410 H Ammonia 47.0 H Total Protein 7.0 Albumin 3.1 L Globulin 3.9 Albumin/Globulin Ratio 0.8 L Blood Type Medical Necessity - Tobacco Use Smoking Status: Current every day smoker Tobacco Use: Cigarettes Assessment/Plan Active and Suspected Problems Vomiting (Acute) 1. Acute alcohol withdrawal - continue CIWA protocol with librium, ativan, folate, thiamine. Stable. Tox screen negative. 2. Hematemesis and Bloody stools - hx bleeding esophageal varices, very concerning with thrombocytopenia. Somewhat improved with Platelets 5 pack. Surgery following. No further nausea or vomiting. Hgb stable. Protonix drip. 3. Elevated LFTs - abdominal US to assess for ascites. Check Hepatitis panel 4. Acute blood loss anemia 2/2 #2 - plan as above 5. HTN -improved. still running high. 6. hypokalemia/hypophosphatemia - replete. DVT ppx: SCDs, no chemoppx with bleeding DC planning: pending clinical course. If he rebleeds he might need transfer. This patient was seen by Fan Lieberman PA-C under the supervision of Doctor Kamar. <Renzo Galvin - Last Filed: 02/05/18 17:17> Subjective: Patient has history of alcoholic cirrhosis, last EGD about more than 5 years ago ; does not remember the details. Patient had platelet transfusion. Patient had total of 3 episodes of GI bleed, 2 hematemesis and 1 hematochezia. - Physical Exam General: Alert, Oriented x3, Cooperative HEENT: Atraumatic, PERRLA, EOMI, Normocephalic Neck: Supple, No JVD, Negative Carotid Bruits Lungs: Clear to auscultation, Normal air movement Cardiovascular: Regular rate, No murmurs Abdomen: Bowel Sounds Present, Soft, Non Tender Extremities: No edema, Capillary Refill Less than 3 Seconds Skin: No rashes, No breakdown Musculoskeletal: No Tenderness to Palpation of Joints or Extremities Neurological: Cranial nerves II-XII grossly intact Psych/Mental Status: Normal Affect, Appropriate Vital Signs Temp Pulse Resp BP Pulse Ox 98.8 F 74 18 141/90 H 98 02/05/18 14:00 02/05/18 14:00 02/05/18 14:00 02/05/18 14:00 02/05/18 14:00 Oxygen Delivery Method Room Air Weight: 147 lb 11.355 oz Body Mass Index (BMI) 19.5 Intake and Output for Last 24 Hours 02/03/18 02/04/18 02/05/18 23:59 23:59 23:59 Intake Total 1346 / 1346 3002 / 3002 Output Total 1625 / 1625 Balance 1346 / 1346 1377 / 1377 Laboratory Tests Past 24 Hrs 02/04/18 02/04/18 02/04/18 17:33 17:33 17:33 WBC RBC Hgb 10.1 L Hct 31.0 L MCV MCH MCHC RDW RDW Differential Plt Count MPV Immature Gran % (Auto) Neut % (Auto) Lymph % (Auto) Hettinger % (Auto) Eos % (Auto) Baso % (Auto) Absolute Neuts (auto) Absolute Lymphs (auto) Total Counted Differential Comment Diff Path Review PT INR Sodium Potassium Chloride Carbon Dioxide Anion Gap BUN Creatinine Estim Creat Clear Calc Est GFR (MDRD) Af Amer Est GFR (MDRD) Non-Af BUN/Creatinine Ratio Glucose Calcium Phosphorus 2.4 L Magnesium 2.3 Total Bilirubin AST ALT Alkaline Phosphatase Ammonia Total Protein Albumin Globulin Albumin/Globulin Ratio Blood Type A POSITIVE 02/05/18 02/05/18 02/05/18 01:24 01:24 04:56 WBC 3.5 L 3.3 L RBC 3.01 L 3.02 L Hgb 9.5 L 9.8 L Hct 29.3 L 29.4 L MCV 97.3 H 97.4 H MCH 31.6 32.5 H MCHC 32.4 33.3 RDW 16.0 H 16.0 H RDW Differential 56.7 H 55.0 H Plt Count 34 L* 32 L* MPV 9.8 10.8 Immature Gran % (Auto) 0.300 Neut % (Auto) 69.6 Lymph % (Auto) 10.4 L Hettinger % (Auto) 16.3 H Eos % (Auto) 3.1 Baso % (Auto) 0.3 Absolute Neuts (auto) 2.3 Absolute Lymphs (auto) 0.34 L Total Counted Not Reportable Differential Comment SCAN Diff Path Review Reviewed Reviewed PT 15.1 H INR 1.2 Sodium Potassium Chloride Carbon Dioxide Anion Gap BUN Creatinine Estim Creat Clear Calc Est GFR (MDRD) Af Amer Est GFR (MDRD) Non-Af BUN/Creatinine Ratio Glucose Calcium Phosphorus Magnesium Total Bilirubin AST ALT Alkaline Phosphatase Ammonia Total Protein Albumin Globulin Albumin/Globulin Ratio Blood Type 02/05/18 02/05/18 02/05/18 04:56 04:56 10:05 WBC RBC Hgb 9.8 L Hct 30.2 L MCV MCH MCHC RDW RDW Differential Plt Count MPV Immature Gran % (Auto) Neut % (Auto) Lymph % (Auto) Hettinger % (Auto) Eos % (Auto) Baso % (Auto) Absolute Neuts (auto) Absolute Lymphs (auto) Total Counted Differential Comment Diff Path Review PT INR Sodium 140 Potassium 3.3 L Chloride 105 Carbon Dioxide 24.0 Anion Gap 11 BUN 15 Creatinine 1.00 Estim Creat Clear Calc 88.40 Est GFR (MDRD) Af Amer 104 Est GFR (MDRD) Non-Af 86 BUN/Creatinine Ratio 15.0 Glucose 80 Calcium 8.0 L Phosphorus Magnesium Total Bilirubin 2.50 H AST 140 H ALT 51 Alkaline Phosphatase 410 H Ammonia 47.0 H Total Protein 7.0 Albumin 3.1 L Globulin 3.9 Albumin/Globulin Ratio 0.8 L Blood Type Assessment/Plan This patient was seen in conjunction with Fan THOMPSON. I have independently interviewed and examined the patient and reviewed pertinent history, examination findings, laboratory and plan of management. I have reviewed the note and agree with the documented findings with the few additional points. In brief, patient is admitted for acute blood loss anemia secondary to upper GI bleed. Currently, hemoglobin is 9.8, hematocrit 29.4 and platelet count 32, 000. Patient wanted to go home but tried to reconcile that he is still risk of GI bleed until 72 hours. For the moment, he has agreed. Janis Arriaga also requested for counseling. I have discussed my assessment with Fan THOMPSON and orders have been reviewed. Laboratory Results 02/04/18 13:53: Diff Path Review Reviewed 02/04/18 17:33: Hgb 10.1 L, Hct 31.0 L 02/04/18 17:33: Phosphorus 2.4 L, Magnesium 2.3 02/04/18 17:33: Blood Type A POSITIVE 02/05/18 01:24: WBC 3.5 L, RBC 3.01 L, Hgb 9.5 L, Hct 29.3 L, MCV 97.3 H, MCH 31.6, MCHC 32.4, RDW 16.0 H, RDW Differential 56.7 H, Plt Count 34 L*, MPV 9.8, Differential Comment SCAN, Diff Path Review Reviewed 02/05/18 01:24: PT 15.1 H, INR 1.2 02/05/18 04:56: WBC 3.3 L, RBC 3.02 L, Hgb 9.8 L, Hct 29.4 L, MCV 97.4 H, MCH 32.5 H, MCHC 33.3, RDW 16.0 H, RDW Differential 55.0 H, Plt Count 32 L*, MPV 10.8, Immature Gran % (Auto) 0.300, Neut % (Auto) 69.6, Lymph % (Auto) 10.4 L, Hettinger % (Auto) 16.3 H, Eos % (Auto) 3.1, Baso % (Auto) 0.3, Absolute Neuts (auto ) 2.3, Absolute Lymphs (auto) 0.34 L, Total Counted Not Reportable, Diff Path Review Reviewed 02/05/18 04:56: Sodium 140, Potassium 3.3 L, Chloride 105, Carbon Dioxide 24.0, Anion Gap 11, BUN 15, Creatinine 1.00, Estim Creat Clear Calc 88.40, Est GFR ( MDRD) Af Amer 104, Est GFR (MDRD) Non-Af 86, BUN/Creatinine Ratio 15.0, Glucose 80, Calcium 8.0 L, Total Bilirubin 2.50 H, AST 140 H, ALT 51, Alkaline Phosphatase 410 H, Total Protein 7.0, Albumin 3.1 L, Globulin 3.9, Albumin/ Globulin Ratio 0.8 L 02/05/18 04:56: Ammonia 47.0 H 02/05/18 10:05: Hgb 9.8 L, Hct 30.2 L Code Visit Inpatient E&M: 64522 Subs Hosp L3
[2018-02-05 14:26] LABS: Pathologist Review Reviewed
[2018-02-05 14:27] LABS: Pathologist Review Reviewed
[2018-02-05] MEDS: LORazepam 1 MG Tablet 2 MG PO (14:34)
--- NOTE | 2018-02-05 15:16 | CHAPLAIN ---
Type of Pastoral Visit _x__ Initial Visit ___ Follow-up Visit ___ On-call Visit ___ General Patient Visit ___ Spiritual Assessment ___ Family Conference ___ Bereavement ___ Rapid Response ___ Code Blue ___ Other (describe below) Pastoral Care Referral From _x__ Patient ___ Family ___ Nurse ___ Physician ___ Treating Plant Supervisor ___ Assembler Engine ___ Other (describe below) Sacrament/Intervention _x__ Active listening ___ Anointing ___ Mandaen ___ Bereavement ___ Communion _x__ Marly exploration ___ _x__ Life review _x__ Prayer ___ Reconciliation ___ Sacrament of Sick _x__ Supportive presence ___ Wedding ___ Other (describe below) Pastoral Comments patient believes he is doing much better now and hopes that he can leave hospital soon; pt says that he has tried many resources to stay in sobriety but nothing has really lasted long for him; pt did not know about [facility] at time of our conversation;
--- NOTE | 2018-02-05 17:36 | PN.SURG_ITS ---
Patient Problems: Active and Suspected Problems Vomiting (Acute) Subjective: no vomiting - Physical Exam General: Oriented x3, Cooperative Lungs: Clear to auscultation, Normal air movement Cardiovascular: Regular rate, Regular Rhythm Abdomen: Bowel Sounds Present, Soft, Non Tender Vital Signs Temp Pulse Resp BP Pulse Ox 98.8 F 74 18 141/90 H 98 02/05/18 14:00 02/05/18 14:00 02/05/18 14:00 02/05/18 14:00 02/05/18 14:00 Oxygen Delivery Method Room Air Weight: 67 kg Body Mass Index (BMI) 19.5 Intake and Output for Last 24 Hours 02/03/18 02/04/18 02/05/18 23:59 23:59 23:59 Intake Total 1346 / 1346 3002 / 3002 Output Total 1625 / 1625 Balance 1346 / 1346 1377 / 1377 Laboratory Tests Past 24 Hrs 02/04/18 02/04/18 02/04/18 17:33 17:33 17:33 WBC RBC Hgb 10.1 L Hct 31.0 L MCV MCH MCHC RDW RDW Differential Plt Count MPV Immature Gran % (Auto) Neut % (Auto) Lymph % (Auto) [place] % (Auto) Eos % (Auto) Baso % (Auto) Absolute Neuts (auto) Absolute Lymphs (auto) Total Counted Differential Comment Diff Path Review PT INR Sodium Potassium Chloride Carbon Dioxide Anion Gap BUN Creatinine Estim Creat Clear Calc Est GFR (MDRD) Af Amer Est GFR (MDRD) Non-Af BUN/Creatinine Ratio Glucose Calcium Phosphorus 2.4 L Magnesium 2.3 Total Bilirubin AST ALT Alkaline Phosphatase Ammonia Total Protein Albumin Globulin Albumin/Globulin Ratio Blood Type A POSITIVE 02/05/18 02/05/18 02/05/18 01:24 01:24 04:56 WBC 3.5 L 3.3 L RBC 3.01 L 3.02 L Hgb 9.5 L 9.8 L Hct 29.3 L 29.4 L MCV 97.3 H 97.4 H MCH 31.6 32.5 H MCHC 32.4 33.3 RDW 16.0 H 16.0 H RDW Differential 56.7 H 55.0 H Plt Count 34 L* 32 L* MPV 9.8 10.8 Immature Gran % (Auto) 0.300 Neut % (Auto) 69.6 Lymph % (Auto) 10.4 L [place] % (Auto) 16.3 H Eos % (Auto) 3.1 Baso % (Auto) 0.3 Absolute Neuts (auto) 2.3 Absolute Lymphs (auto) 0.34 L Total Counted Not Reportable Differential Comment SCAN Diff Path Review Reviewed Reviewed PT 15.1 H INR 1.2 Sodium Potassium Chloride Carbon Dioxide Anion Gap BUN Creatinine Estim Creat Clear Calc Est GFR (MDRD) Af Amer Est GFR (MDRD) Non-Af BUN/Creatinine Ratio Glucose Calcium Phosphorus Magnesium Total Bilirubin AST ALT Alkaline Phosphatase Ammonia Total Protein Albumin Globulin Albumin/Globulin Ratio Blood Type 02/05/18 02/05/18 02/05/18 04:56 04:56 10:05 WBC RBC Hgb 9.8 L Hct 30.2 L MCV MCH MCHC RDW RDW Differential Plt Count MPV Immature Gran % (Auto) Neut % (Auto) Lymph % (Auto) [place] % (Auto) Eos % (Auto) Baso % (Auto) Absolute Neuts (auto) Absolute Lymphs (auto) Total Counted Differential Comment Diff Path Review PT INR Sodium 140 Potassium 3.3 L Chloride 105 Carbon Dioxide 24.0 Anion Gap 11 BUN 15 Creatinine 1.00 Estim Creat Clear Calc 88.40 Est GFR (MDRD) Af Amer 104 Est GFR (MDRD) Non-Af 86 BUN/Creatinine Ratio 15.0 Glucose 80 Calcium 8.0 L Phosphorus Magnesium Total Bilirubin 2.50 H AST 140 H ALT 51 Alkaline Phosphatase 410 H Ammonia 47.0 H Total Protein 7.0 Albumin 3.1 L Globulin 3.9 Albumin/Globulin Ratio 0.8 L Blood Type Medical Necessity - Tobacco Use Smoking Status: Current every day smoker Tobacco Use: Cigarettes Assessment/Plan Active and Suspected Problems Vomiting (Acute) alcoholic liver disease, alcohol withdrawal, impending delirium tremens, hematemesis, history of esophageal varices I have discussed with the patient and Dr. Miles, the severe risk with bleeding varices and severe thrombocytopenia. His hemoglobin overall seems relatively stable. He had no further vomiting overnight and his Hgb is stable. Ammonia level is mildly elevated. CT scan of the abdomen and pelvis and ultrasound demonstrate hepatomegaly with cirrhotic changes, no ascites, but significant varices other sequelae of cirrhosis
[2018-02-05] MEDS: traZODone 50 MG Tablet PO (21:59)
[2018-02-06 01:44] VITALS: PULSE 59
[2018-02-06 02:00] VITALS: BP 143/104; PULSE 85; RESP 16; TEMP 36.9; O2SAT 98
[2018-02-06] MEDS: cloNIDine HCl 0.1 MG Tablet PO ×2 (02:29→06:58)
[2018-02-06] MEDS: chlordiazePOXIDE 25 MG Capsule 50 MG PO (04:56)
[2018-02-06] MEDS: LORazepam 1 MG Tablet 2 MG PO (04:56)
[2018-02-06 05:00] VITALS: PULSE 78
[2018-02-06] MEDS: Dicyclomine 10 MG Capsule 20 MG PO (05:03)
[2018-02-06 06:00] VITALS: BP 155/98; PULSE 65; PULSE 83; RESP 16; TEMP 36.9; O2SAT 98
[2018-02-06 06:38] LABS: Absolute Lymphocyte Count 0.26 X10^3/ul (0.83-4.51); Absolute Neutrophil Count 3.1 X10^3/uL (2.0-7.7); Basophil# 0.02 X10^3/uL; Basophil% 0.5 % (0-1); Eosinophil# 0.16 X10^3/uL; Eosinophils% 3.9 % (0-5); Hematocrit 33.1 % (40-54); Hemoglobin 10.6 g/dl (13.0-16.5); Lymphocyte # 0.26 X10^3/ul (4.0); Lymphocyte % 6.3 % (19-41); Mean Corpuscular Hgb 31.5 pg (27.0-32.0); Mean Corpuscular Volume 98.2 fL (80-94); Monocyte# 0.56 X10^3/uL; Monocyte% 13.5 % (0-10); Neutrophil # 3.14 X10^3/uL (2.7-7.7); Neutrophil % 75.6 % (47-70); RBC Distribution Width CV 15.6 % (11.6-14.6); RBC Distribution Width SD 56.2 fl (35.1-43.9); Red Blood Count 3.37 M/mm3 (4.6-6.2); White Blood Count 4.2 K/mm3 (4.4-11.0)
[2018-02-06 06:40] LABS: Differential Indicated SCAN CRITERIA MET; POSITIVE COUNT NO; POSITIVE DIFFERENTIAL YES; POSITIVE MORPHOLOGY YES; Platelet Count 64 K/mm3 (150-450)
[2018-02-06 06:48] LABS: ALB/GLOB Ratio 0.6 RATIO (0.9-2.4); AST(SGOT) 147 U/L (15-37); Alanine Aminotransfer ALT/SGPT 61 U/L (16-61); Albumin, Serum 2.6 g/dL (3.2-5.0); Alkaline Phosphatase 404 U/L (45-117); Anion Gap 10 (5-15); BUN 12 mg/dL (7-18); BUN/Creat Ratio 14.3 RATIO (10-20); Calcium,Total 8.1 mg/dL (8.5-10.1); Chloride 104 mmol/L (98-107); Creatinine, Serum 0.84 mg/dL (0.70-1.30); EST Glomerular Filtration Rate 105 mL/min (>60); Est Glom Filt Rate - Afr Amer 127 mL/min (>60); Estimated Creatinine Clearance 105.24 ml/min; Globulin 4.4 g/dL (2.2-4.2); Glucose 114 mg/dL (74-106); Potassium 3.6 mmol/L (3.5-5.1); Sodium Level 135 mmol/L (136-145)
[2018-02-06 06:58] LABS: Platelet Estimate MOD DEC (ADEQ); Platelet Morphology LARGE
[2018-02-06 07:39] VITALS: O2SAT 98
[2018-02-06] MEDS: Folic Acid 1 MG Tablet PO (07:46)
[2018-02-06] MEDS: Multivitamins,Ther W-Minerals Tablet 1 TABLET PO (07:46)
[2018-02-06] MEDS: Thiamine Hydrochloride 100 MG Tablet PO (07:46)
[2018-02-06 09:11] VITALS: BP 127/80; PULSE 59; RESP 16; TEMP 36.7; O2SAT 98
--- NOTE | 2018-02-06 09:21 | NURSING ---
Pt has been restless since awake this am. Taking off his clothing and getting dressed for today.Questions as to when the doctor will be in. States he is leaving today as early as possible. Education provided on need to be stable prior discharge and pt continues to refuse.
--- NOTE | 2018-02-06 12:05 | PCM.DC ---
You will use the following diet at home:: Other - no alcohol at all Your food should be the consistency of: Regular Your liquids should be the consistency of: Regular/Thin Discharge Activity: Return to Normal Activity Additional Instructions: Pt was not instructed to leave, he left AMA as he is not in stable condition. Allergies/Adverse Reactions: Allergies No Known Allergies Allergy (Verified 02/04/18 13:27) Medications to take at Discharge Multivitamins,Ther W-Minerals [Multivitamin With Minerals] 1 tablet PO DAILY 08/13/14 Losartan Potassium 50 mg PO DAILY 12/27/17 Clonidine HCl 0.1 mg PO 4X/DAY 02/04/18 Ferrous Sulfate 325 mg PO BIDCM #60 tab 02/06/18 Folic Acid 1 mg PO DAILY@0800 #30 tab 02/06/18 Nicotine [Nicoderm] 14 mg TRANSDERM. DAILY #30 patch 02/06/18 Pantoprazole Sodium [Protonix] 40 mg PO BID #60 tab 02/06/18 Thiamine Hydrochloride [Vitamin B1] 100 mg PO DAILYCM #30 tab 02/06/18 The following prescriptions were given: Ferrous Sulfate 325 mg PO BIDCM #60 tab Folic Acid 1 mg PO DAILY@0800 #30 tab Nicotine [Nicoderm] 14 mg TRANSDERM. DAILY #30 patch Pantoprazole Sodium [Protonix] 40 mg PO BID #60 tab Thiamine Hydrochloride [Vitamin B1] 100 mg PO DAILYCM #30 tab Primary Care Physician: Osorio Hastings DO [Primary Care Provider] - Please follow up with your Primary Care Physician in: 1 week Proposed Discharge Date: 02/06/18
--- NOTE | 2018-02-06 15:46 | PCM.DC.SUM ---
<Fan Lieberman - Last Filed: 02/06/18 15:46> Discharge Date and Diagnosis Date of Admission: 02/04/18 Date of Discharge: 02/06/18 - Primary Discharge Diagnosis Acute alcohol withdrawal Upper GI bleed with acute blood loss anemia secondary to suspected bleeding esophageal varices Cirrhosis of the liver Hypertension Nicotine abuse - Secondary Discharge Diagnosis Chronic Problems Thrombocytopenia (Chronic) Esophageal varices (Chronic) Alcoholism (Chronic) Depression (Chronic) Hypertension (Chronic) Hospital Course and Treatment Imaging Results: US/Abdomen Complete IMPRESSION: Hepatosplenomegaly due to hepatocellular disease. Cholelithiasis without evidence for acute cholecystitis CT/Abdomen/Pelvis without Cont IMPRESSION: Findings consistent with hepatic cirrhosis and splenomegaly with changes of portal hypertension. There appear to be multiple poorly defined space-occupying lesions. MRI would be helpful for more definitive evaluation Cholelithiasis without definitive evidence for acute cholecystitis. Findings consistent with nonspecific gastritis. Bilateral nephrolithiasis without evidence for hydronephrosis or ureteral calculus Other findings as above RAD/Chest PA and Lateral IMPRESSION: No acute cardiopulmonary pathology Britney - gen surg. Operations: None Procedures: - - platelet transfusin Summary of Care Provided: Exam on day of discharge: pt left AMA prior to being seen. The patient is a 47 year old M who presented to the emergency room with acute alcohol withdrawal and bloody vomit and stool. He had a history of bleeding esophageal varices and a long history of alcohol abuse. He is found to be mildly anemic with a hemoglobin of 11 however he had severely decreased platelets of 25,000. He is admitted to the general medical floor and surgery was consulted. He received a 5 pack of platelets. He was started on the CIWA protocol with thiamine and folate acid replacement, Librium and Ativan. He started on Protonix drip. He did well overnight and had no further nausea or vomiting. His blood slightly decreased. CT of the abdomen demonstrated liver cirrhosis. The patient became very agitated and decided to leave AMA. He was given a prescription for Protonix twice daily and warned about possibility of bleeding with his cirrhosis and esophageal varices. He will need follow-up with GI . Patient left AMA in guarded condition. This patient was seen by Fan Lieberman PA-C under the supervision of Doctor Kamar. [] Discharge Diet: Low fat/ Low Cholesterol, 2000 mg Sodium Diet, - - no alcohol at all Discharge Activity: Return to Normal Activity Home Medications: Medications to take at Discharge Multivitamins,Ther W-Minerals [Multivitamin With Minerals] 1 tablet PO DAILY 08/13/14 Losartan Potassium 50 mg PO DAILY 12/27/17 Clonidine HCl 0.1 mg PO 4X/DAY 02/04/18 Ferrous Sulfate 325 mg PO BIDCM #60 tab 02/06/18 Folic Acid 1 mg PO DAILY@0800 #30 tab 02/06/18 Nicotine [Nicoderm] 14 mg TRANSDERM. DAILY #30 patch 02/06/18 Pantoprazole Sodium [Protonix] 40 mg PO BID #60 tab 02/06/18 Thiamine Hydrochloride [Vitamin B1] 100 mg PO DAILYCM #30 tab 02/06/18 Following Prescrptions Were Given to Patient: Ferrous Sulfate 325 mg PO BIDCM #60 tab Folic Acid 1 mg PO DAILY@0800 #30 tab Nicotine [Nicoderm] 14 mg TRANSDERM. DAILY #30 patch Pantoprazole Sodium [Protonix] 40 mg PO BID #60 tab Thiamine Hydrochloride [Vitamin B1] 100 mg PO DAILYCM #30 tab Primary Care Physician: Osorio Hastings DO [Primary Care Provider] - Please follow up with your Primary Care Physician in: 1 week Disposition: Against Medical Advice Minutes spent on discharge:: 35 Patient Condition:: Guarded Medical Necessity - Tobacco Use Smoking Status: Current every day smoker Tobacco Use: Cigarettes Meaningful Use Info Meaningful Use Diagnoses (Choose all that apply): None applicable <Renzo Galvin - Last Filed: 02/06/18 17:42> Discharge Date and Diagnosis - Secondary Discharge Diagnosis Chronic Problems Thrombocytopenia (Chronic) Esophageal varices (Chronic) Alcoholism (Chronic) Depression (Chronic) Hypertension (Chronic) Hospital Course and Treatment Summary of Care Provided: This patient was seen in conjunction with Fan THOMPSON. I have independently interviewed and examined the patient and reviewed pertinent history, examination findings, laboratory and plan of management. I have reviewed the note and agree with the documented findings with the few additional points. In brief, patient is admitted for acute blood loss anemia secondary to upper GI bleed. Should hemoglobin improved to 10.6 g/dL and platelet count 64,000. Patient wanted to go home since yesterday but tried to reconcile that he is still risk of GI bleed until 72 hours. [facility], [facility]is also requested for counseling. Discussed with Dr. Tan and he was planning to arrange for transfer to [facility] for EGD by manager aviation for possible variceal banding. Patient does not agree any signed AMA and the risk of variceal bleed and life-threatening condition Necessary medications including Protonix, ferrous sulfate, folic acid and thiamine sent to patient pharmacy. I have discussed my assessment with Fan THOMPSON and orders have been reviewed. [] Code Visit Inpatient E&M: 68312 Disch Hosp
--- NOTE | 2018-02-06 15:54 | DS.PCM_ITS ---
<Fan Lieberman - Last Filed: 02/06/18 15:46> Discharge Date and Diagnosis Date of Admission: 02/04/18 Date of Discharge: 02/06/18 - Primary Discharge Diagnosis Acute alcohol withdrawal Upper GI bleed with acute blood loss anemia secondary to suspected bleeding esophageal varices Cirrhosis of the liver Hypertension Nicotine abuse - Secondary Discharge Diagnosis Chronic Problems Thrombocytopenia (Chronic) Esophageal varices (Chronic) Alcoholism (Chronic) Depression (Chronic) Hypertension (Chronic) Hospital Course and Treatment Imaging Results: US/Abdomen Complete IMPRESSION: Hepatosplenomegaly due to hepatocellular disease. Cholelithiasis without evidence for acute cholecystitis CT/Abdomen/Pelvis without Cont IMPRESSION: Findings consistent with hepatic cirrhosis and splenomegaly with changes of portal hypertension. There appear to be multiple poorly defined space-occupying lesions. MRI would be helpful for more definitive evaluation Cholelithiasis without definitive evidence for acute cholecystitis. Findings consistent with nonspecific gastritis. Bilateral nephrolithiasis without evidence for hydronephrosis or ureteral calculus Other findings as above RAD/Chest PA and Lateral IMPRESSION: No acute cardiopulmonary pathology Britney - gen surg. Operations: None Procedures: - - platelet transfusin Summary of Care Provided: Exam on day of discharge: pt left AMA prior to being seen. The patient is a 47 year old M who presented to the emergency room with acute alcohol withdrawal and bloody vomit and stool. He had a history of bleeding esophageal varices and a long history of alcohol abuse. He is found to be mildly anemic with a hemoglobin of 11 however he had severely decreased platelets of 25,000. He is admitted to the general medical floor and surgery was consulted. He received a 5 pack of platelets. He was started on the CIWA protocol with thiamine and folate acid replacement, Librium and Ativan. He started on Protonix drip. He did well overnight and had no further nausea or vomiting. His blood slightly decreased. CT of the abdomen demonstrated liver cirrhosis. The patient became very agitated and decided to leave AMA. He was given a prescription for Protonix twice daily and warned about possibility of bleeding with his cirrhosis and esophageal varices. He will need follow-up with GI . Patient left AMA in guarded condition. This patient was seen by Fan Lieberman PA-C under the supervision of Doctor Kamar. [] Discharge Diet: Low fat/ Low Cholesterol, 2000 mg Sodium Diet, - - no alcohol at all Discharge Activity: Return to Normal Activity Home Medications: Medications to take at Discharge Multivitamins,Ther W-Minerals [Multivitamin With Minerals] 1 tablet PO DAILY 12/26 Losartan Potassium 50 mg PO DAILY 12/27/17 Clonidine HCl 0.1 mg PO 4X/DAY 02/04/18 Ferrous Sulfate 325 mg PO BIDCM #60 tab 02/06/18 Folic Acid 1 mg PO DAILY@0800 #30 tab 02/06/18 Nicotine [Nicoderm] 14 mg TRANSDERM. DAILY #30 patch 02/06/18 Pantoprazole Sodium [Protonix] 40 mg PO BID #60 tab 02/06/18 Thiamine Hydrochloride [Vitamin B1] 100 mg PO DAILYCM #30 tab 02/06/18 Following Prescrptions Were Given to Patient: Ferrous Sulfate 325 mg PO BIDCM #60 tab Folic Acid 1 mg PO DAILY@0800 #30 tab Nicotine [Nicoderm] 14 mg TRANSDERM. DAILY #30 patch Pantoprazole Sodium [Protonix] 40 mg PO BID #60 tab Thiamine Hydrochloride [Vitamin B1] 100 mg PO DAILYCM #30 tab Primary Care Physician: Osorio Hastings DO [Primary Care Provider] - Please follow up with your Primary Care Physician in: 1 week Disposition: Against Medical Advice Minutes spent on discharge:: 35 Patient Condition:: Guarded Medical Necessity - Tobacco Use Smoking Status: Current every day smoker Tobacco Use: Cigarettes Meaningful Use Info Meaningful Use Diagnoses (Choose all that apply): None applicable <Renzo Galvin - Last Filed: 02/06/18 17:42> Discharge Date and Diagnosis - Secondary Discharge Diagnosis Chronic Problems Thrombocytopenia (Chronic) Esophageal varices (Chronic) Alcoholism (Chronic) Depression (Chronic) Hypertension (Chronic) Hospital Course and Treatment Summary of Care Provided: This patient was seen in conjunction with Fan THOMPSON. I have independently interviewed and examined the patient and reviewed pertinent history, examination findings, laboratory and plan of management. I have reviewed the note and agree with the documented findings with the few additional points. In brief, patient is admitted for acute blood loss anemia secondary to upper GI bleed. Should hemoglobin improved to 10.6 g/dL and platelet count 64,000. Patient wanted to go home since yesterday but tried to reconcile that he is still risk of GI bleed until 72 hours. [facility], [facility]is also requested for counseling. Discussed with Dr. Tan and he was planning to arrange for transfer to [facility] for EGD by heel buffer for possible variceal banding. Patient does not agree any signed AMA and the risk of variceal bleed and life- threatening condition Necessary medications including Protonix, ferrous sulfate, folic acid and thiamine sent to patient pharmacy. I have discussed my assessment with Fan THOMPSON and orders have been reviewed. [] Code Visit Inpatient E&M: 89423 Disch Hosp
--- NOTE | 2018-02-06 19:00 | PN.SURG_ITS ---
- Physical Exam General: Alert, Oriented x3 Lungs: Clear to auscultation, Normal air movement Cardiovascular: Regular rate, No murmurs Abdomen: Bowel Sounds Present, Soft, Non Tender Vital Signs Temp Pulse Resp BP Pulse Ox 98.0 F 59 L 16 127/80 H 98 02/06/18 09:11 02/06/18 09:11 02/06/18 09:11 02/06/18 09:11 02/06/18 09:11 Oxygen Delivery Method Room Air Weight: 67 kg Body Mass Index (BMI) 19.5 Intake and Output for Last 24 Hours 02/04/18 02/05/18 02/06/18 23:59 23:59 23:59 Intake Total 1346 / 1346 4202 / 4202 720 / 720 Output Total 2475 / 2475 850 / 850 Balance 1346 / 1346 1727 / 1727 -130 / -130 Laboratory Tests Past 24 Hrs 02/06/18 02/06/18 05:50 05:50 WBC 4.2 L RBC 3.37 L Hgb 10.6 L Hct 33.1 L MCV 98.2 H MCH 31.5 MCHC 32.0 RDW 15.6 H RDW Differential 56.2 H Plt Count 64 L Immature Gran % (Auto) 0.200 Neut % (Auto) 75.6 H Lymph % (Auto) 6.3 L [place] % (Auto) 13.5 H Eos % (Auto) 3.9 Baso % (Auto) 0.5 Absolute Neuts (auto) 3.1 Absolute Lymphs (auto) 0.26 L Total Counted Not Reportable Platelet Estimate MOD DEC Plt Morphology Comment LARGE Sodium 135 L Potassium 3.6 Chloride 104 Carbon Dioxide 21.0 Anion Gap 10 BUN 12 Creatinine 0.84 Estim Creat Clear Calc 105.24 Est GFR (MDRD) Af Amer 127 Est GFR (MDRD) Non-Af 105 BUN/Creatinine Ratio 14.3 Glucose 114 H Calcium 8.1 L Total Bilirubin 2.00 H AST 147 H ALT 61 Alkaline Phosphatase 404 H Total Protein 7.0 Albumin 2.6 L Globulin 4.4 H Albumin/Globulin Ratio 0.6 L Medical Necessity - Tobacco Use Smoking Status: Current every day smoker Tobacco Use: Cigarettes Assessment/Plan alcoholic liver disease, alcohol withdrawal, impending delirium tremens, hematemesis, history of esophageal varices I have discussed with the patient and Dr. Miles, the severe risk with bleeding varices and severe thrombocytopenia. His hemoglobin overall seems relatively stable. He had no further vomiting overnight and his Hgb is stable. Ammonia level is mildly elevated. CT scan of the abdomen and pelvis and ultrasound demonstrate hepatomegaly with cirrhotic changes, no ascites, but significant varices other sequelae of cirrhosis I spoke with bowling ball weigher and packer in [place]-Dr. Bari Larose who was seen the patient in the past and would be willing to see the patient as an outpatient for possible repeat upper endoscopy and esophageal banding. I gave Dr. Larose the patient's phone number.
== END 2018-02-06 09:15 | disposition left against medical advice (07) | DRG 894 ==
LOC: ED 15:38 → MS2 16:04
PROVIDERS: Physician Assistant; Surgery; Admitting Provider Family Medicine; Emergency Provider Emergency Medicine; Family Provider Family Medicine; PCP Family Medicine; Visit Provider Internal Medicine
DX: F10.239 Alcohol dependence with withdrawal, unspecified (principal); I85.11 Secondary esophageal varices with bleeding; D69.6 Thrombocytopenia, unspecified; D62 Acute posthemorrhagic anemia; K70.30 Alcoholic cirrhosis of liver without ascites; E83.39 Other disorders of phosphorus metabolism; F17.210 Nicotine dependence, cigarettes, uncomplicated; I10 Essential (primary) hypertension; E87.6 Hypokalemia; F32.9 Major depressive disorder, single episode, unspecified
CPT/HCPCS: 36415; 71046; 74176; 76700; 80053; 80307; 80320; 81001; 82140; 83735; 84100; 85014; 85018; 85025; 85027; 85610; 86900; 86965; 93005; 97802; 99285; J7030; J7040; J7050; J7120; P9035; A4216; G0480; J2405

== ENCOUNTER → 2018-04-03 10:47 | Outpatient (CLI) | payer BC, SELFPAY ==
[2018-04-03 12:46] LABS: Absolute Lymphocyte Count 0.43 X10^3/ul (0.83-4.51); Absolute Neutrophil Count 1.7 X10^3/uL (2.0-7.7); Basophil# 0.02 X10^3/uL; Basophil% 0.7 % (0-1); Eosinophil# 0.09 X10^3/uL; Eosinophils% 3.4 % (0-5); Hematocrit 36.5 % (40-54); Hemoglobin 11.9 g/dl (13.0-16.5); Lymphocyte # 0.43 X10^3/ul (4.0); Mean Corp Hgb Conc 32.6 g/gl (32-36); Mean Corpuscular Hgb 30.6 pg (27.0-32.0); Mean Corpuscular Volume 93.8 fL (80-94); Mean Platelet Vol. 10.9 fl (6.2-12.0); Monocyte# 0.46 X10^3/uL; Monocyte% 17.2 % (0-10); Neutrophil # 1.67 X10^3/uL (2.7-7.7); Neutrophil % 62.3 % (47-70); Platelet Count 28 K/mm3 (150-450); RBC Distribution Width CV 15.6 % (11.6-14.6); RBC Distribution Width SD 53.3 fl (35.1-43.9); Red Blood Count 3.89 M/mm3 (4.6-6.2); White Blood Count 2.7 K/mm3 (4.4-11.0)
[2018-04-03 13:05] LABS: ALB/GLOB Ratio 0.8 RATIO (0.9-2.4); AST(SGOT) 130 U/L (15-37); Alanine Aminotransfer ALT/SGPT 53 U/L (16-61); Albumin, Serum 3.7 g/dL (3.2-5.0); Alkaline Phosphatase 467 U/L (45-117); Anion Gap 10 (5-15); BUN 6 mg/dL (7-18); BUN/Creat Ratio 7.9 RATIO (10-20); Calcium,Total 8.2 mg/dL (8.5-10.1); Chloride 110 mmol/L (98-107); Creatinine, Serum 0.76 mg/dL (0.70-1.30); EST Glomerular Filtration Rate 118 mL/min (>60); Est Glom Filt Rate - Afr Amer 143 mL/min (>60); Globulin 4.8 g/dL (2.2-4.2); Glucose 107 mg/dL (74-106); Potassium 3.5 mmol/L (3.5-5.1); Protein, Total 8.5 g/dL (6.4-8.2); Sodium Level 143 mmol/L (136-145)
[2018-04-03 13:16] LABS: Differential Indicated SCAN CRITERIA MET; POSITIVE COUNT YES; POSITIVE DIFFERENTIAL YES; POSITIVE MORPHOLOGY NO
[2018-04-04 13:14] LABS: Pathologist Review Reviewed
[2018-04-04 14:04] LABS: AFP, Tumor Marker 5.1 ng/mL (0.0-8.3); Hep B Surface Antibodies Non Reactive (.); Hep C Antibodies <0.1 s/co ratio (0.0-0.9)
== END ==
PROVIDERS: Family Provider Family Medicine; PCP Family Medicine; Visit Provider Family Medicine
DX: K70.30 Alcoholic cirrhosis of liver without ascites (principal); I10 Essential (primary) hypertension; D64.9 Anemia, unspecified; D69.6 Thrombocytopenia, unspecified
CPT/HCPCS: 36415; 80053; 82105; 85025; 86706; 86803

== ENCOUNTER → 2018-04-11 13:25 | Outpatient (CLI) | payer BC, SELFPAY ==
[2018-04-11 15:42] LABS: Absolute Lymphocyte Count 0.53 X10^3/ul (0.83-4.51); Absolute Neutrophil Count 1.8 X10^3/uL (2.0-7.7); Basophil# 0.06 X10^3/uL; Basophil% 1.8 % (0-1); Eosinophil# 0.22 X10^3/uL; Eosinophils% 6.6 % (0-5); Hematocrit 37.6 % (40-54); Hemoglobin 12.7 g/dl (13.0-16.5); Lymphocyte # 0.53 X10^3/ul (4.0); Lymphocyte % 15.9 % (19-41); Mean Corp Hgb Conc 33.8 g/gl (32-36); Mean Corpuscular Hgb 31.7 pg (27.0-32.0); Mean Corpuscular Volume 93.8 fL (80-94); Mean Platelet Vol. 11.1 fl (6.2-12.0); Neutrophil % 54.1 % (47-70); Platelet Count 52 K/mm3 (150-450); RBC Distribution Width CV 16.1 % (11.6-14.6); RBC Distribution Width SD 53.4 fl (35.1-43.9); Red Blood Count 4.01 M/mm3 (4.6-6.2); White Blood Count 3.3 K/mm3 (4.4-11.0)
[2018-04-11 15:49] LABS: ALB/GLOB Ratio 0.8 RATIO (0.9-2.4); AST(SGOT) 153 U/L (15-37); Alanine Aminotransfer ALT/SGPT 58 U/L (16-61); Albumin, Serum 3.5 g/dL (3.2-5.0); Alkaline Phosphatase 418 U/L (45-117); Anion Gap 7 (5-15); BUN 7 mg/dL (7-18); BUN/Creat Ratio 8.5 RATIO (10-20); Calcium,Total 8.5 mg/dL (8.5-10.1); Chloride 107 mmol/L (98-107); Creatinine, Serum 0.82 mg/dL (0.70-1.30); EST Glomerular Filtration Rate 107 mL/min (>60); Est Glom Filt Rate - Afr Amer 130 mL/min (>60); Globulin 4.6 g/dL (2.2-4.2); Glucose 117 mg/dL (74-106); Potassium 3.5 mmol/L (3.5-5.1); Protein, Total 8.1 g/dL (6.4-8.2); Sodium Level 139 mmol/L (136-145)
[2018-04-11 16:14] LABS: Differential Indicated SCAN CRITERIA MET; POSITIVE COUNT NO; POSITIVE DIFFERENTIAL YES; POSITIVE MORPHOLOGY NO
[2018-04-24 10:45] LABS: Pathologist Review Reviewed
== END ==
PROVIDERS: Family Provider Family Medicine; PCP Family Medicine; Visit Provider Family Medicine
DX: K70.30 Alcoholic cirrhosis of liver without ascites (principal); I10 Essential (primary) hypertension; D64.9 Anemia, unspecified
CPT/HCPCS: 36415; 80053; 85025

== ENCOUNTER 2018-12-02 15:03 | Emergency (ER) | payer BC, SELFPAY ==
[2018-12-02 15:05] VITALS: BP 160/110; PULSE 80; RESP 16; TEMP 36.8; O2SAT 98; BMI 20.1
--- NOTE | 2018-12-02 15:20 | RAD_ITS ---
STUDY: X-RAY - RIGHT KNEE REASON FOR EXAM: Male, 48 years old. Several month history of right knee pain. TECHNIQUE: 3 view(s) of the knee. COMPARISON: None. FINDINGS: Normal visualized distal femur. Normal visualized proximal tibia and fibula. Normal proximal tibiofibular articulation. Normal medial femorotibial compartment. Normal lateral femorotibial compartment. Normal patellofemoral articulation. The soft tissue structures are unremarkable. RAD/Knee 3 Views IMPRESSION: Normal x-ray examination of the knee. Electronically Signed: Sacha Cho MD at 15:35 EST Tel [phone], Service support ,
--- NOTE | 2018-12-02 15:42 | ED.VISSUMM ---
- ER Visit Summary Date of Service: 12/02/18 Chief Complaint: Bilateral knee and calf pain History of Present Illness: The patient is a 48 M who has bilateral knee and calf pain. Been ongoing for the past month. He describes pains in both knees and calves. Is worse when he works. He states that working is because his symptoms be worse. He denies any specific injury. He has been trying ibuprofen at home without any relief. Denies any fractures in any of these extremities. No DVT history or risk factors. Physical Examination: Vital signs reviewed. Bilateral leg exam reveals diffuse tenderness of the right knee. He also has tenderness of the right calf. He has no tenderness of the left knee or left calf. He has full range of motion of all these joints. He has 2+ DP pulses bilaterally. They are both warm to the touch. Test Results: Right knee x-ray shows no acute on normalities Emergency Department Course and Treatment: The patient's exam is fairly benign. He has no symptoms of claudication. I do not feel that this is any vascular compromise. Is likely due to over exertion at work. He will ice and use naproxen at home. He will follow-up with his PCP. Treatment Plan: [] Disposition: Discharge Impression: Bilateral knee pain This note was generated with [employer] dictation software. It may contain incorrect words, spelling, and punctuation that were not noted in review of the chart prior to signing ED Disposition - Plan for ED Patient: Chief Complaint: Lower Extremity Injury Referrals: Osorio Hastings DO [Primary Care Provider] -
--- NOTE | 2018-12-02 15:44 | ED.DEP ---
ED Disposition - Plan for ED Patient: Disposition: Home or Assisted Living Chief Complaint: Lower Extremity Injury Instructions: ED Knee Pain [facility] Prescriptions: Naproxen [Naprosyn] 500 mg PO BID PRN #20 tab Referrals: Osorio Hastings DO [Primary Care Provider] -
--- OUTSIDE RECORDS SUMMARY | 2019-02-04 03:55 | XMS RPT_ITS ---
:1970 Author Organization OHIP Support Name Relationship Address Phone KEVIN WILD Unavailable [address] + [place] [address] WALMARTWOO Unavailable [address] + [place] [address] KEVIN WILD Unavailable [address] + [place] [address] [employer] Unavailable [address] + [place] [address] KEVIN WILD Unavailable [address] + [place] [address] [employer] Unavailable [address] + [place] [address] KEVIN WILD Unavailable [address] + [place] [address] [employer] Unavailable [address] + [place] [address] KEVIN WILD Unavailable [address] + [place] [address] [employer] Unavailable [address] + [place] [address] KEVIN WILD Unavailable [address] + [place] [address] [employer] Unavailable [address] + [place] [address] KEVIN WILD Unavailable [address] + [place] [address] [employer] Unavailable [address] + [place] [address] KEVIN WILD Unavailable [address] + [place] [address] [employer] Unavailable [address] + [place] [address] KEVIN WILD Unavailable [address] + [place] [address] [employer] Unavailable [address] + [place] [address] KEVIN WILD Unavailable [address] + [place] [address] [employer] Unavailable [address] + [place] [address] Care Team Providers Name Role Phone VenkataOsorio Primary Care Unavailable Cain Sampson Attending Unavailable Venkata, Osorio Primary Care Unavailable Prabhjot Myers Attending Unavailable Venkata, Osorio Primary Care Unavailable Sonali Lorenzana Attending Unavailable Venkata, Osorio Primary Care Unavailable White, Jacey Admitting Unavailable Britney, Bari Consulting Unavailable Kamar, Renzo Attending Unavailable White, Jacey Admitting Unavailable Venkata, Osorio Primary Care Unavailable White, Jacey Consulting Unavailable White, Jacey Attending Unavailable White, Jacey Admitting Unavailable Venkata, Osorio Primary Care Unavailable Britney, Bari Consulting Unavailable Kamar, Renzo Attending Unavailable Kamar, Renzo Consulting Unavailable White, Jacey Admitting Unavailable Venkata, Osorio Primary Care Unavailable Britney, Bari Consulting Unavailable Kamar, Renzo Attending Unavailable Kamar, Renzo Consulting Unavailable Venkata, Osorio Attending Unavailable Venkata, Osorio Primary Care Unavailable Venkata, Osorio Attending Unavailable Venkata, Osorio Primary Care Unavailable Venkata, Osorio Attending Unavailable Venkata, Osorio Primary Care Unavailable PROBLEMS PROBLEMS DATE TYPE CONDITION / CODE ATTENDING STATUS SOURCE 04/19/2018 Unknown K70.30 - Alcoholic Osorio Hastings Active [facility] cirrhosis of liver Community without ascites / Hospital K70.30(ICD-10) Repository 04/19/2018 Unknown D64.9 - Anemia, Osorio Hastings Active [place] unspecified / Community D64.9(ICD-10) Hospital Repository 04/19/2018 Unknown I85.00 - Osorio Hastings Active [place] Esophageal varices Community without bleeding / Hospital I85.00(ICD-10) Repository 04/11/2018 Unknown I10 - Essential Osorio Hastings Active [place] (primary) Community hypertension / Hospital I10(ICD-10) Repository 04/03/2018 Unknown D69.6 - Osorio Hastings Active [place] Thrombocytopenia, Community unspecified / Hospital D69.6(ICD-10) Repository PROCEDURES PROCEDURES No Procedure Records FoundRESULTS RESULTS DISCHARGE INSTRUCTION Observed: 12/02/2018 Status: F Source: [place] 3:45 PM [facility] HOSPITAL REPOSITORY [facility] Medical Records Department [address] [place] [address] Discharge Instruction 12/02/18 1544 MR#: [id number] Acct: [id number] Name: JACK WILD Rep #: [id number] : 1970 48 From: Cain Sampson MD PCP: Osorio Hastings DO Status: PRE ER ED Disposition - Plan for ED Patient: Disposition: Home or Assisted Living Chief Complaint: Lower Extremity Injury Instructions: ED Knee Pain [facility] Prescriptions: Naproxen [Naprosyn] 500 mg PO BID PRN #20 tab Referrals: Osorio Hastings DO [Primary Care Provider] - What to do if you have Problems For any increased pain, shortness of breath, bleeding, nausea or vomiting, chest pain, or any unexpected problems, contact your Primary Care Provider. Call [facility] ([phone]) or report to the closest Emergency Room. Call 911 if necessary. 12/02/18 1545 <Electronically signed by Cain Sampson MD> Date Cain Sampson MD Cosigner Signature (If Indicated): Date CC: Osorio aHstings DO EMERGENCY DEPARTMENT Observed: 12/02/2018 Status: F Source: [place] SUMMARY 3:44 PM [facility] REPOSITORY [facility] Medical Records Department [address] [place] [address] Emergency Department Summary 12/02/18 1542 MR#: [id number] Acct: [id number] Name: JACK WILD Rep #: [id number] : 1970 48 From: Cain Sampson MD PCP: Osorio Hastings DO Status: PRE ER - ER Visit Summary Date of Service: 12/02/18 Chief Complaint: Bilateral knee and calf pain History of Present Illness: The patient is a 48 M who has bilateral knee and calf pain. Been ongoing for the past month. He describes pains in both knees and calves. Is worse when he works. He states that working is because his symptoms be worse. He denies any specific injury. He has been trying ibuprofen at home without any relief. Denies any fractures in any of these extremities. No DVT history or risk factors. Physical Examination: Vital signs reviewed. Bilateral leg exam reveals diffuse tenderness of the right knee. He also has tenderness of the right calf. He has no tenderness of the left knee or left calf. He has full range of motion of all these joints. He has 2+ DP pulses bilaterally. They are both warm to the touch. Test Results: Right knee x-ray shows no acute on normalities Emergency Department Course and Treatment: The patient's exam is fairly benign. He has no symptoms of claudication. I do not feel that this is any vascular compromise. Is likely due to over exertion at work. He will ice and use naproxen at home. He will follow-up with his PCP. Treatment Plan: [] Disposition: Discharge Impression: Bilateral knee pain This note was generated with [employer] dictation software. It may contain incorrect words, spelling, and punctuation that were not noted in review of the chart prior to signing ED Disposition - Plan for ED Patient: Chief Complaint: Lower Extremity Injury Referrals: Osorio Hastings DO [Primary Care Provider] - What to do if you have Problems For any increased pain, shortness of breath, bleeding, nausea or vomiting, chest pain, or any unexpected problems, contact your Primary Care Provider. Call [facility] ([phone]) or report to the closest Emergency Room. Call 911 if necessary. 12/02/18 1542 <Electronically signed by Cain Sampson MD> Date Cain Sampson MD Cosigner Signature (If Indicated): Date CC: Osorio Hastings DO KNEE 3 VIEWS Observed: 12/02/2018 Status: F Source: [place] 3:16 PM [facility] HOSPITAL REPOSITORY [facility] Imaging Services [address] [place] [address] Knee 3 Views MR#: [id number] Acct: [id number] Name: JACK WILD Rep #: [id number] : 1970 M 48 From: Sacha Cho MD PCP: Osorio Hastings DO Status: PRE ER Study: Knee 3 Views Date of Exam: 12/02/18 Exam# [id number] Ordering Dr: Cain Sampson MD STUDY: X-RAY - RIGHT KNEE REASON FOR EXAM: Male, 48 years old. Several month history of right knee pain. TECHNIQUE: 3 view(s) of the knee. COMPARISON: None. FINDINGS: Normal visualized distal femur. Normal visualized proximal tibia and fibula. Normal proximal tibiofibular articulation. Normal medial femorotibial compartment. Normal lateral femorotibial compartment. Normal patellofemoral articulation. The soft tissue structures are unremarkable. RAD/Knee 3 Views IMPRESSION: Normal x-ray examination of the knee. Electronically Signed: Sacha Cho MD at 15:35 EST Tel [phone], Service support , CC: Cain Sampson MD; Osorio Hastings DO Marine Meteorologist: Signed COMPREHENSIVE METABOLIC Collected: 04/11/2018 Status: F Source: [place] PROFIL 1:26 PM [facility] HOSPITAL REPOSITORY TYPE CODE TESTS RESULT OUT OF RANGE REFERENCE UNITS LAB L501.0100 74-106 mg/dL High GLU 117 Result Comment: Fasting Glucose result from 100 to 125 mg/dL suggests IMPAIRED HOMEOSTASIS per A.D.A. criteria. Please note revised GLUCOSE reference range effective 2017. LAB L501.1000 7-18 mg/dL Normal BUN 7 LAB L501.1100 0.70-1.30 mg/dL Normal CREAT,SERUM 0.82 Result Comment: The validity of the calculated GFR AND GFRAA in patients over 70 years has not been determined. Clinical correlation is essential. LAB L501.1110 >60 mL/min Normal EST GFR 107 Result Comment: Non- GFR Calc LAB L501.1115 >60 mL/min Normal EST GFR - AA 130 Result Comment: GFR Calc LAB L501.1300 10-20 RATIO Low BUN/CRE 8.5 LAB L501.1500 6.4-8.2 g/dL Normal T PROT 8.1 LAB L501.1800 3.2-5.0 g/dL Normal ALB 3.5 LAB L501.1950 2.2-4.2 g/dL High GLOB 4.6 LAB L501.2000 0.9-2.4 RATIO Low A/G 0.8 LAB L501.2200 8.5-10.1 mg/dL Normal CA 8.5 LAB L501.4100 15-37 U/L High AST 153 LAB L501.4305 45-117 U/L High ALK P 418 LAB L501.4405 16-61 U/L Normal ALT 58 LAB L501.4600 0.20-1.00 mg/dL High T BILI 1.30 LAB L501.5300 136-145 mmol/L Normal NA 139 LAB L501.5600 3.5-5.1 mmol/L Normal K 3.5 LAB L501.5900 98-107 mmol/L Normal CL 107 LAB L501.6100 21.0-32.0 mmol/L Normal CO2 25.0 LAB L501.6200 5-15 Normal GAP 7 Performed By: #### L500.4050 #### [facility] [address] [place], [address] CBC W/DIFF, AUTOMATED Collected: 04/11/2018 Status: C Source: [place] 1:26 [facility] REPOSITORY TYPE CODE TESTS RESULT OUT OF RANGE REFERENCE UNITS LAB L100.1000 4.4-11.0 K/mm3 Low WBC 3.3 LAB L100.1200 4.6-6.2 M/mm3 Low RBC 4.01 LAB L100.1300 13.0-16.5 g/dl Low HGB 12.7 LAB L100.1400 40-54 % Low HCT 37.6 LAB L100.1500 80-94 fL Normal MCV 93.8 LAB L100.1600 27.0-32.0 pg Normal MCH 31.7 LAB L100.1700 32-36 g/gl Normal MCHC 33.8 LAB L100.1810 11.6-14.6 % High RDW CV 16.1 LAB L100.1820 35.1-43.9 fl High RDW SD 53.4 LAB L100.1900 150-450 K/mm3 Low PLT 52 LAB L100.2000 6.2-12.0 fl Normal MPV 11.1 LAB L100.2100 47-70 % Normal NEUT% 54.1 LAB L100.2200 19-41 % Low LY% 15.9 LAB L100.2300 0-10 % High MONO% 21.0 LAB L100.2400 0-5 % High EO% 6.6 LAB L100.2500 0-1 % High BASO% 1.8 LAB L100.2550 0.0-0.9 % Normal IM GRAN % 0.600 Result Comment: IG% - Immature Granulocytes (promyelocytes, myelocytes and metamyelocytes) > 1% indicates that a LEFT SHIFT is Present. LAB L100.2620 2.0-7.7 X10 3/uL Low Absolute Neut 1.8 LAB L100.2720 0.83-4.51 X10 3/ul Low Absolute Lymph 0.53 LAB L100.4500 SMEAR Normal COMMENT Result Comment: LYMPHOPENIA NOTED LAB L100.9900 Normal Reviewed PATH REV Result Comment: Leukopenia, neutopenia and Thrombocytopenia. Clinical correlation necessary. Jose Wilkerson M.D. 04/24/18 Pathologist comment added AMENDED REPORT 04/24/18 1044 PATH REV previously reported as: March Performed By: #### L100.0100 #### [facility] [address] [place], [address] COMPREHENSIVE METABOLIC Collected: 04/03/2018 Status: F Source: [place] [facility] 10:50 AM [facility] REPOSITORY TYPE CODE TESTS RESULT OUT OF RANGE REFERENCE UNITS LAB L501.0100 74-106 mg/dL High GLU 107 Result Comment: Fasting Glucose result from 100 to 125 mg/dL suggests IMPAIRED HOMEOSTASIS per A.D.A. criteria. Please note revised GLUCOSE reference range effective 2017. LAB L501.1000 7-18 mg/dL Low BUN 6 LAB L501.1100 0.70-1.30 mg/dL Normal CREAT,SERUM 0.76 Result Comment: The validity of the calculated GFR AND GFRAA in patients over 70 years has not been determined. Clinical correlation is essential. LAB L501.1110 >60 mL/min Normal EST GFR 118 Result Comment: Non- GFR Calc LAB L501.1115 >60 mL/min Normal EST GFR - AA 143 Result Comment: GFR Calc LAB L501.1300 10-20 RATIO Low BUN/CRE 7.9 LAB L501.1500 6.4-8.2 g/dL High T PROT 8.5 LAB L501.1800 3.2-5.0 g/dL Normal ALB 3.7 LAB L501.1950 2.2-4.2 g/dL High GLOB 4.8 LAB L501.2000 0.9-2.4 RATIO Low A/G 0.8 LAB L501.2200 8.5-10.1 mg/dL Low CA 8.2 LAB L501.4100 15-37 U/L High AST 130 LAB L501.4305 45-117 U/L High ALK P 467 LAB L501.4405 16-61 U/L Normal ALT 53 LAB L501.4600 0.20-1.00 mg/dL High T BILI 1.20 LAB L501.5300 136-145 mmol/L Normal NA 143 LAB L501.5600 3.5-5.1 mmol/L Normal K 3.5 LAB L501.5900 98-107 mmol/L High CL 110 LAB L501.6100 21.0-32.0 mmol/L Normal CO2 23.0 LAB L501.6200 5-15 Normal GAP 10 Performed By: #### L500.4050 #### [facility] [address] [place], [address] CBC W/DIFF, AUTOMATED Collected: 04/03/2018 Status: C Source: [place] 10:50 AM [facility] REPOSITORY Order Comment: CRITICAL VALUE VERIFIED. CALLED TO JADON 04/03/18 Roseline Kristina Velazquez. RESULTS READ BACK BY LORENZO . TYPE CODE TESTS RESULT OUT OF RANGE REFERENCE UNITS LAB L100.4500 Normal SMEAR COMMENT Result Comment: PANCYTOPENIA LAB L100.1000 4.4-11.0 K/mm3 Low WBC 2.7 LAB L100.1200 4.6-6.2 M/mm3 Low RBC 3.89 LAB L100.1300 13.0-16.5 g/dl Low HGB 11.9 LAB L100.1400 40-54 % Low HCT 36.5 LAB L100.1500 80-94 fL Normal MCV 93.8 LAB L100.1600 27.0-32.0 pg Normal MCH 30.6 LAB L100.1700 32-36 g/gl Normal MCHC 32.6 LAB L100.1810 11.6-14.6 % High RDW CV 15.6 LAB L100.1820 35.1-43.9 fl High RDW SD 53.3 LAB L100.1900 150-450 K/mm3 Low alert PLT 28 LAB L100.2000 6.2-12.0 fl Normal MPV 10.9 LAB L100.2100 47-70 % Normal NEUT% 62.3 LAB L100.2200 19-41 % Low LY% 16.0 LAB L100.2300 0-10 % High MONO% 17.2 LAB L100.2400 0-5 % Normal EO% 3.4 LAB L100.2500 0-1 % Normal BASO% 0.7 LAB L100.2550 0.0-0.9 % Normal IM GRAN % 0.400 Result Comment: IG% - Immature Granulocytes (promyelocytes, myelocytes and metamyelocytes) > 1% indicates that a LEFT SHIFT is Present. LAB L100.2620 2.0-7.7 X10 3/uL Low Absolute Neut 1.7 LAB L100.2720 0.83-4.51 X10 3/ul Low Absolute Lymph 0.43 LAB L100.9900 Normal PATH REV Reviewed Result Comment: Pancytopenia. Clinical correlation necessary. Jose Wilkerson M.D. 04/04/18 AMENDED REPORT 04/04/18 1314 PATH REV previously reported as: March Performed By: #### L100.0100 #### [facility] [address] [place], [address] HEP B SURFACE Collected: 04/03/2018 Status: F Source: [place] [facility]IBODIES 10:50 AM [facility] REPOSITORY Order Comment: Is Patient ? N TYPE CODE TESTS RESULT OUT OF RANGE REFERENCE UNITS LAB L3100.0528 . Normal Hep B Non Reactive Lucille AB Result Comment: Non Reactive: Inconsistent with immunity, less than 10 mIU/mL Reactive: Consistent with immunity, greater than 9.9 mIU/mL Performed By: #### L3100.0528, L3100.0625, L3300.0700 #### [facility] (refer to report for specific site) refer to report for address and phone number HEPATITIS C ANTIBODIES Collected: 04/03/2018 Status: F Source: [place] 10:50 AM [facility] REPOSITORY Order Comment: Is Patient ? N TYPE CODE TESTS RESULT OUT OF RANGE REFERENCE UNITS LAB L3100.0650 0.0-0.9 s/co ratio Normal HEP C AB <0.1 Result Comment: Negative: < 0.8 Indeterminate: 0.8 - 0.9 Positive: > 0.9 The CDC recommends that a positive HCV antibody result be followed up with a HCV Nucleic Acid Amplification test (276646). Performed at: [address] [id number] Automatic Grinder Operator: Stephen Hackett PhD, Phone: [phone] Performed By: #### L3100.0528, L3100.0625, L3300.0700 #### [facility] (refer to report for specific site) refer to report for address and phone number AFP, TUMOR MARKER Collected: 04/03/2018 Status: F Source: [place] 10:50 AM [facility] REPOSITORY Order Comment: Is Patient ? N TYPE CODE TESTS RESULT OUT OF RANGE REFERENCE UNITS LAB L3300.0700 0.0-8.3 ng/mL Normal AFP TUMOR 5.1 2253 Result Comment: [employer] ECLIA methodology Performed By: #### L3100.0528, L3100.0625, L3300.0700 #### [facility] (refer to report for specific site) refer to report for address and phone number 12 LEAD ELECTROCARDIOGRAM Observed: 02/07/2018 Status: F Source: [place] 2:42 PM [facility] HOSPITAL REPOSITORY [facility] Cardiovascular Services [address] [place] [address] 12 Lead EKG 02/04/18 1405 MR#: [id number] Acct: [id number] Name: JACK WILD Rep #: [id number] : 1970 47 From: Evan Rajput MD Attending Dr: Renzo Galvin MD Status: DIS IN Ordering Dr: Nehemiah Jackson MD Date: 02/04/18 Location: MS2 Sex: M C Admitted: 02/04/18 Test Reason : SUBSTANCE ABUSE Blood Pressure : / mmHG Vent. Rate : 110 BPM Atrial Rate : 110 BPM P-R Int : 170 ms QRS Dur : 090 ms QT Int : 322 ms P-R-T Axes : 065 078 043 degrees QTc Int : 435 ms Sinus tachycardia Otherwise normal ECG Confirmed by EVAN RAJPUT MD ([id number]), fashion editor YARELIS LYNCH ([id number]) on 02/07/2018 2:42:24 PM Referred By: SERGIO Confirmed By:EVAN RAJPUT MD 02/07/18 1442 Date Evan Rajput MD CC: Nehemiah Jackson MD; Osorio Hastings DO; Renzo Galvin MD Signed DISCHARGE SUMMARY Observed: 02/06/2018 Status: F Source: [place] 5:43 PM [facility] HOSPITAL REPOSITORY [facility] Medical Records Department [address] [place] [address] Discharge Summary 02/06/18 1546 MR#: [id number] Acct: [id number] Name: JACK WILD Rep #: [id number] : 1970 47 From: Fan THOMPSON PCP: Venkata DO,Osorio Status: DIS IN Y Location: MS2 [id number] <Fan Lieberman - Last Filed: 02/06/18 15:46> Discharge Date and Diagnosis Date of Admission: 02/04/18 Date of Discharge: 02/06/18 - Primary Discharge Diagnosis Acute alcohol withdrawal Upper GI bleed with acute blood loss anemia secondary to suspected bleeding esophageal varices Cirrhosis of the liver Hypertension Nicotine abuse - Secondary Discharge Diagnosis Chronic Problems Thrombocytopenia (Chronic) Esophageal varices (Chronic) Alcoholism (Chronic) Depression (Chronic) Hypertension (Chronic) Hospital Course and Treatment Imaging Results: US/Abdomen Complete IMPRESSION: Hepatosplenomegaly due to hepatocellular disease. Cholelithiasis without evidence for acute cholecystitis CT/Abdomen/Pelvis without Cont IMPRESSION: Findings consistent with hepatic cirrhosis and splenomegaly with changes of portal hypertension. There appear to be multiple poorly defined space-occupying lesions. MRI would be helpful for more definitive evaluation Cholelithiasis without definitive evidence for acute cholecystitis. Findings consistent with nonspecific gastritis. Bilateral nephrolithiasis without evidence for hydronephrosis or ureteral calculus Other findings as above RAD/Chest PA and Lateral IMPRESSION: No acute cardiopulmonary pathology Britney - gen surg. Operations: None Procedures: - - platelet transfusin Summary of Care Provided: Exam on day of discharge: pt left AMA prior to being seen. The patient is a 47 year old M who presented to the emergency room with acute alcohol withdrawal and bloody vomit and stool. He had a history of bleeding esophageal varices and a long history of alcohol abuse. He is found to be mildly anemic with a hemoglobin of 11 however he had severely decreased platelets of 25,000. He is admitted to the general medical floor and surgery was consulted. He received a 5 pack of platelets. He was started on the CIWA protocol with thiamine and folate acid replacement, Librium and Ativan. He started on Protonix drip. He did well overnight and had no further nausea or vomiting. His blood slightly decreased. CT of the abdomen demonstrated liver cirrhosis. The patient became very agitated and decided to leave AMA. He was given a prescription for Protonix twice daily and warned about possibility of bleeding with his cirrhosis and esophageal varices. He will need follow-up with GI . Patient left AMA in guarded condition. This patient was seen by Fan Lieberman PA-C under the supervision of Doctor Kamar. [] Discharge Diet: Low fat/ Low Cholesterol, 2000 mg Sodium Diet, - - no alcohol at all Discharge Activity: Return to Normal Activity Home Medications: Medications to take at Discharge Multivitamins,Ther W-Minerals [Multivitamin With Minerals] 1 tablet PO DAILY 08/13/14 Losartan Potassium 50 mg PO DAILY 12/27/17 Clonidine HCl 0.1 mg PO 4X/DAY 02/04/18 Ferrous Sulfate 325 mg PO BIDCM #60 tab 02/06/18 Folic Acid 1 mg PO DAILY@0800 #30 tab 02/06/18 Nicotine [Nicoderm] 14 mg TRANSDERM. DAILY #30 patch 02/06/18 Pantoprazole Sodium [Protonix] 40 mg PO BID #60 tab 02/06/18 Thiamine Hydrochloride [Vitamin B1] 100 mg PO DAILYCM #30 tab 02/06/18 Following Prescrptions Were Given to Patient: Ferrous Sulfate 325 mg PO BIDCM #60 tab Folic Acid 1 mg PO DAILY@0800 #30 tab Nicotine [Nicoderm] 14 mg TRANSDERM. DAILY #30 patch Pantoprazole Sodium [Protonix] 40 mg PO BID #60 tab Thiamine Hydrochloride [Vitamin B1] 100 mg PO DAILYCM #30 tab Primary Care Physician: Osorio Hastings DO [Primary Care Provider] - Please follow up with your Primary Care Physician in: 1 week Disposition: Against Medical Advice Minutes spent on discharge:: 35 Patient Condition:: Guarded Medical Necessity - Tobacco Use Smoking Status: Current every day smoker Tobacco Use: Cigarettes Meaningful Use Info Meaningful Use Diagnoses (Choose all that apply): None applicable <Renzo Galvin - Last Filed: 02/06/18 17:42> Discharge Date and Diagnosis - Secondary Discharge Diagnosis Chronic Problems Thrombocytopenia (Chronic) Esophageal varices (Chronic) Alcoholism (Chronic) Depression (Chronic) Hypertension (Chronic) Hospital Course and Treatment Summary of Care Provided: This patient was seen in conjunction with Fan THOMPSON. I have independently interviewed and examined the patient and reviewed pertinent history, examination findings, laboratory and plan of management. I have reviewed the note and agree with the documented findings with the few additional points. In brief, patient is admitted for acute blood loss anemia secondary to upper GI bleed. Should hemoglobin improved to 10.6 g/dL and platelet count 64,000. Patient wanted to go home since yesterday but tried to reconcile that he is still risk of GI bleed until 72 hours. Janis Arriaga also requested for counseling. Discussed with Dr. Tan and he was planning to arrange for transfer to [facility] for EGD by roll tender for possible variceal banding. Patient does not agree any signed AMA and the risk of variceal bleed and life-threatening condition Necessary medications including Protonix, ferrous sulfate, folic acid and thiamine sent to patient pharmacy. I have discussed my assessment with Fan THOMPSON and orders have been reviewed. [] Code Visit Inpatient E AND M: 13835 Disch Hosp 02/06/18 1554 <Electronically signed by Fan THOMPSON> Date Fan THOMPSON 02/06/18 4753<Electronically signed by Renzo Galvin MD> Cosigner Signature (if applicable): Date Renzo Galvin MD CC: DONNA Lieberman; Osorio Hastings DO; Renzo Galvin MD Signed DISCHARGE INSTRUCTION Observed: 02/06/2018 Status: F Source: [place] 12:09 PM [facility] REPOSITORY [facility] Medical Records Department [address] [place] [address] Instructions for Home/Discharge Instructions 02/06/18 1205 MR#: [id number] Acct: [id number] Name: JACK WILD Rep #: [id number] : 1970 47 From: Fan THOMPSON PCP: Osorio Hastings DO Status: DIS IN You will use the following diet at home:: Other - no alcohol at all Your food should be the consistency of: Regular Your liquids should be the consistency of: Regular/Thin Discharge Activity: Return to Normal Activity Additional Instructions: Pt was not instructed to leave, he left AMA as he is not in stable condition. Allergies/Adverse Reactions: Allergies No Known Allergies Allergy (Verified 02/04/18 13:27) Medications to take at Discharge Multivitamins,Ther W-Minerals [Multivitamin With Minerals] 1 tablet PO DAILY 08/13/14 Losartan Potassium 50 mg PO DAILY 12/27/17 Clonidine HCl 0.1 mg PO 4X/DAY 02/04/18 Ferrous Sulfate 325 mg PO BIDCM #60 tab 02/06/18 Folic Acid 1 mg PO DAILY@0800 #30 tab 02/06/18 Nicotine [Nicoderm] 14 mg TRANSDERM. DAILY #30 patch 02/06/18 Pantoprazole Sodium [Protonix] 40 mg PO BID #60 tab 02/06/18 Thiamine Hydrochloride [Vitamin B1] 100 mg PO DAILYCM #30 tab 02/06/18 The following prescriptions were given: Ferrous Sulfate 325 mg PO BIDCM #60 tab Folic Acid 1 mg PO DAILY@0800 #30 tab Nicotine [Nicoderm] 14 mg TRANSDERM. DAILY #30 patch Pantoprazole Sodium [Protonix] 40 mg PO BID #60 tab Thiamine Hydrochloride [Vitamin B1] 100 mg PO DAILYCM #30 tab Primary Care Physician: Osorio Hastings DO [Primary Care Provider] - Please follow up with your Primary Care Physician in: 1 week Proposed Discharge Date: 02/06/18 02/06/18 1209 <Electronically signed by Fan THOMPSON> Date Fan THOMPSON CC: Osorio Hastings DO; Bari Tan MD CBC W/DIFF, AUTOMATED Collected: 02/06/2018 Status: F Source: [facility] 5:50 AM [facility] REPOSITORY TYPE CODE TESTS RESULT OUT OF RANGE REFERENCE UNITS LAB L100.1000 4.4-11.0 K/mm3 Low WBC 4.2 LAB L100.1200 4.6-6.2 M/mm3 Low RBC 3.37 LAB L100.1300 13.0-16.5 g/dl Low HGB 10.6 LAB L100.1400 40-54 % Low HCT 33.1 LAB L100.1500 80-94 fL High MCV 98.2 LAB L100.1600 27.0-32.0 pg Normal MCH 31.5 LAB L100.1700 32-36 g/gl Normal MCHC 32.0 LAB L100.1810 11.6-14.6 % High RDW CV 15.6 LAB L100.1820 35.1-43.9 fl High RDW SD 56.2 LAB L100.1900 150-450 K/mm3 Low PLT 64 LAB L100.2100 47-70 % High NEUT% 75.6 LAB L100.2200 19-41 % Low LY% 6.3 LAB L100.2300 0-10 % High MONO% 13.5 LAB L100.2400 0-5 % Normal EO% 3.9 LAB L100.2500 0-1 % Normal BASO% 0.5 LAB L100.2550 0.0-0.9 % Normal IM GRAN % 0.200 Result Comment: IG% - Immature Granulocytes (promyelocytes, myelocytes and metamyelocytes) > 1% indicates that a LEFT SHIFT is Present. LAB L100.2620 2.0-7.7 X10 3/uL Normal Absolute Neut 3.1 LAB L100.2720 0.83-4.51 X10 3/ul Low Absolute Lymph 0.26 LAB L100.5500 ADEQ Normal PLT EST MOD DEC LAB L100.5650 Normal PLT MORPH LARGE Performed By: #### L100.0100 #### [facility] [address] [place], [place], [address] COMPREHENSIVE METABOLIC Collected: 02/06/2018 Status: F Source: [facility] 5:50 AM [facility] REPOSITORY TYPE CODE TESTS RESULT OUT OF RANGE REFERENCE UNITS LAB L501.0100 74-106 mg/dL High GLU 114 Result Comment: Fasting Glucose result from 100 to 125 mg/dL suggests IMPAIRED HOMEOSTASIS per A.D.A. criteria. Please note revised GLUCOSE reference range effective 2017. LAB L501.1000 7-18 mg/dL Normal BUN 12 LAB L501.1100 0.70-1.30 mg/dL Normal CREAT,SERUM 0.84 Result Comment: The validity of the calculated GFR AND GFRAA in patients over 70 years has not been determined. Clinical correlation is essential. LAB L501.1110 >60 mL/min Normal EST GFR 105 Result Comment: Non- GFR Calc LAB L501.1115 >60 mL/min Normal EST GFR - AA 127 Result Comment: GFR Calc LAB L501.1255 ml/min Normal Estimated CRCL 105.24 LAB L501.1300 10-20 RATIO BUN/CRE Normal 14.3 LAB L501.1500 6.4-8. g/dL 2 T PROT Normal 7.0 LAB L501.1800 3.2-5. g/dL Low 0 ALB 2.6 LAB L501.1950 2.2-4. g/dL High 2 GLOB 4.4 LAB L501.2000 0.9-2. RATIO Low 4 A/G 0.6 LAB L501.2200 8.5-10 mg/dL Low .1 CA 8.1 LAB L501.4100 15-37 U/L High AST 147 LAB L501.4305 45-117 U/L High ALK P 404 LAB L501.4405 16-61 U/L ALT Normal 61 Result Comment: Please note revised ALT reference range effective 2017. LAB L501.4600 0.20-1.00 mg/dL High T BILI 2.00 LAB L501.5300 136-145 mmol/L Low NA 135 LAB L501.5600 3.5-5.1 mmol/L Normal K 3.6 LAB L501.5900 98-107 mmol/L Normal CL 104 LAB L501.6100 21.0-32.0 mmol/L Normal CO2 21.0 LAB L501.6200 5-15 Normal GAP 10 Performed By: #### L500.4050 #### [facility] [address] [place], [address] HH, HEMOGLOBIN AND Collected: 02/05/2018 Status: F Source: [facility] HEMATOCRIT 10:05 AM [facility] REPOSITORY TYPE CODE TESTS RESULT OUT OF RANGE REFERENCE UNITS LAB L100.1300 13.0-16.5 g/dl Low HGB 9.8 LAB L100.1400 40-54 % Low HCT 30.2 Performed By: #### L100.0600 #### [facility] [address] [facility] [place], [address] CBC W/DIFF, AUTOMATED Collected: 02/05/2018 Status: F Source: [facility] 4:56 AM [facility] REPOSITORY TYPE CODE TESTS RESULT OUT OF RANGE REFERENCE UNITS LAB L100.1000 4.4-11.0 K/mm3 Low WBC 3.3 LAB L100.1200 4.6-6.2 M/mm3 Low RBC 3.02 LAB L100.1300 13.0-16.5 g/dl Low HGB 9.8 LAB L100.1400 40-54 % Low HCT 29.4 LAB L100.1500 80-94 fL High MCV 97.4 LAB L100.1600 27.0-32.0 pg High MCH 32.5 LAB L100.1700 32-36 g/gl Normal MCHC 33.3 LAB L100.1810 11.6-14.6 % High RDW CV 16.0 LAB L100.1820 35.1-43.9 fl High RDW SD 55.0 LAB L100.1900 150-450 K/mm3 Low alert PLT 32 Result Comment: CRITICAL VALUE VERIFIED. CALLED TO REID MCCRARY 02/05/18 0608 Bel Duffy. RESULTS READ BACK BY SAME . AMENDED REPORT 02/05/18 0608 PLT previously reported as: 32 *L K/mm3 LAB L100.2000 6.2-12.0 fl Normal MPV 10.8 LAB L100.2100 47-70 % Normal NEUT% 69.6 LAB L100.2200 19-41 % Low LY% 10.4 LAB L100.2300 0-10 % High MONO% 16.3 LAB L100.2400 0-5 % Normal EO% 3.1 LAB L100.2500 0-1 % Normal BASO% 0.3 LAB L100.2550 0.0-0.9 % Normal IM 0.300 GRAN % Result Comment: IG% - Immature Granulocytes (promyelocytes, myelocytes and metamyelocytes) > 1% indicates that a LEFT SHIFT is Present. LAB L100.2620 2.0-7.7 X10 3/uL Normal Absolute Neut 2.3 LAB L100.2720 0.83-4.51 X10 3/ul Low Absolute Lymph 0.34 LAB L100.9900 Normal PATH REV Reviewed Result Comment: Pancytopenia. Clinical correlation necessary. Jose Wilkerson M.D. 02/05/18 Pathologist comment added Performed By: #### L100.0100 #### [facility] [place], [address] AMMONIA Collected: 02/05/2018 Status: F Source: [place] 4:56 AM [facility] REPOSITORY TYPE CODE TESTS RESULT OUT OF REFERENCE UNITS RANGE LAB L503.5510 11-32 umol/L High AMMONIA 47.0 Performed By: #### L503.5510 #### [facility] [address] [place], [address] COMPREHENSIVE METABOLIC Collected: 02/05/2018 Status: F Source: [facility] 4:56 AM [facility] REPOSITORY TYPE CODE TESTS RESULT OUT OF RANGE REFERENCE UNITS LAB L501.0100 74-106 mg/dL Normal GLU 80 Result Comment: Please note revised GLUCOSE reference range effective 2017. LAB L501.1000 7-18 mg/dL Normal BUN 15 LAB L501.1100 0.70-1.30 mg/dL Normal CREAT,SERUM 1.00 Result Comment: The validity of the calculated GFR AND GFRAA in patients over 70 years has not been determined. Clinical correlation is essential. LAB L501.1110 >60 mL/min Normal EST GFR 86 Result Comment: Non- GFR Calc LAB L501.1115 >60 mL/min Normal EST GFR - AA 104 Result Comment: GFR Calc LAB L501.1255 ml/min Normal Estimated CRCL 88.40 LAB L501.1300 10-20 RATIO Normal BUN/CRE 15.0 LAB L501.1500 6.4-8. g/dL Normal 2 T PROT 7.0 LAB L501.1800 3.2-5. g/dL Low 0 ALB 3.1 LAB L501.1950 2.2-4. g/dL Normal 2 GLOB 3.9 LAB L501.2000 0.9-2. RATIO Low 4 A/G 0.8 LAB L501.2200 8.5-10 mg/dL Low .1 CA 8.0 LAB L501.4100 15-37 U/L High AST 140 LAB L501.4305 45-117 U/L High ALK P 410 LAB L501.4405 16-61 U/L Normal ALT 51 Result Comment: Please note revised ALT reference range effective 2017. LAB L501.4600 0.20-1.00 mg/dL High T BILI 2.50 LAB L501.5300 136-145 mmol/L Normal NA 140 LAB L501.5600 3.5-5.1 mmol/L Low K 3.3 LAB L501.5900 98-107 mmol/L Normal CL 105 LAB L501.6100 21.0-32.0 mmol/L Normal CO2 24.0 LAB L501.6200 5-15 Normal GAP 11 Performed By: #### L500.4050 #### [facility] [address], [address] PROTHROMBIN TIME W/INR Collected: 02/05/2018 Status: F Source: [place] 1:24 AM [facility] REPOSITORY Order Comment: Comments: with next H AND H draw TYPE CODE TESTS RESULT OUT OF RANGE REFERENCE UNITS LAB L300.4150 11.7-14.9 SECONDS High PROTIME 15.1 LAB L300.4200 Normal INR 1.2 Performed By: #### L300.3900 #### [facility] [address] [facility] [place], [address] CBC-COMPLETE BLOOD CNT Collected: 02/05/2018 Status: C Source: [place] NO DIFF 1:24 AM [facility] REPOSITORY Order Comment: Comments: obtain after Plt transfusion. TYPE CODE TESTS RESULT OUT OF RANGE REFERENCE UNITS LAB L100.1000 4.4-11.0 K/mm3 Low WBC 3.5 LAB L100.1200 4.6-6.2 M/mm3 Low RBC 3.01 LAB L100.1300 13.0-16.5 g/dl Low HGB 9.5 LAB L100.1400 40-54 % Low HCT 29.3 LAB L100.1500 80-94 fL High MCV 97.3 LAB L100.1600 27.0-32.0 pg Normal MCH 31.6 LAB L100.1700 32-36 g/gl Normal MCHC 32.4 LAB L100.1810 11.6-14.6 % High RDW CV 16.0 LAB L100.1820 35.1-43.9 fl High RDW SD 56.7 LAB L100.1900 150-450 K/mm3 Low alert PLT 34 Result Comment: CRITICAL VALUE VERIFIED. CALLED TO REID MCCRARY 02/05/18 0207 Bel Duffy. RESULTS READ BACK BY SAME . LAB L100.2000 6.2-12.0 fl Normal MPV 9.8 LAB L100.9900 Normal PATH Reviewed REV Result Comment: Pancytopenia. Clinical correlation necessary. Jose Wilkerson M.D. 02/05/18 Pathologist comment added AMENDED REPORT 02/05/18 1426 PATH REV previously reported as: March Performed By: #### L100.0500, L100.4500 #### [facility] [address] [place], [address] DIFFERENTIAL COMMENT Collected: 02/05/2018 Status: F Source: [place] 1:24 AM [facility] REPOSITORY Order Comment: Comments: obtain after Plt transfusion. TYPE CODE TESTS RESULT OUT OF RANGE REFERENCE UNITS LAB L100.4500 Normal SMEAR COMMENT SCAN Result Comment: THROMBOCYTOPENIA OBSERVED. Performed By: #### L100.0500, L100.4500 #### [facility] [address] [place], [address] CHEST PA AND LATERAL Observed: 02/04/2018 Status: F Source: [place] 9:02 PM [facility] REPOSITORY [facility] Imaging Services [address] [place] [address] Chest PA and Lateral MR#: [id number] Acct: [id number] Name: JACK WILD Rep #: [id number] : 1970 M 47 From: José Miguel Baptiste MD PCP: Osorio Hastings DO Status: ADM IN Study: Chest PA and Lateral Date of Exam: 02/04/18 Exam# [id number] Ordering Dr: Bari Tan MD STUDY: X-RAY CHEST REASON FOR EXAM: Male, 47 years old. Cough TECHNIQUE: PA and lateral COMPARISON: November 17, 2014 FINDINGS: The lungs are clear and expanded. There is no demonstrated pleural abnormality. Normal size heart. Normal mediastinum and venkatesh. Normal visualized pulmonary arteries. Normal visualized aortic arch and descending thoracic aorta. Normal visualized thoracic spine. Normal visualized ribs, clavicles, and shoulders. There is no demonstrated abnormality of the visualized soft tissue structures of the upper abdomen. No significant change since prior study RAD/Chest PA and Lateral IMPRESSION: No acute cardiopulmonary pathology Electronically Signed: José Miguel Baptiste MD at 22:01 EDT , Service support , CC: Osorio Hastings DO; Bari Tan MD Marine Meteorologist: Signed CONSULTATION Observed: 02/04/2018 Status: F Source: [place] 9:00 PM [facility] REPOSITORY [facility] Medical Records Department [address] [place] [address] Consultation 02/04/18 1913 MR#: [id number] Acct: [id number] Name: JACK WILD Tucker Rep #: [id number] : 1970 47 From: Bari Tan MD PCP: Osorio Hastings DO Status: ADM IN Y Location: [facility] [id number] Reason for Consult Date of Consultation: 02/04/18 History of Present Illness: The patient is a 47 year old M admitted for alcohol withdrawal, impending delirium tremens , and hematemesis secondary to vomiting. the patient has a long- standing history of alcohol abuse. He states he has had endoscopy performed at least 10 years back when he lived in [place], which demonstrated esophageal varices. The patient was admitted to [facility] in June 2013 with alcohol withdrawal symptoms, alcohol abuse , alcoholic hepatitis, and GI bleeding at which point he had upper endoscopy which demonstrated significant varices which were banded at that time. Ultrasound was obtained which demonstrated a nodular liver consistent with cirrhosis and is felt to be negative for ascites. the patient notes he usually drinks 12 or so beers per day and the past has been drinking vodka heavily. 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 He attempted again to stop his alcohol intake. He noted shaking, agitation, nausea, and vomiting he initially noted vomiting his foodstuffs. Later he noted blood in his vomitus. he presented to [facility] emergency department. He was initially somewhat agitated, but after receiving IV benzodiazepines , he stabilized. his hemoglobin dropped from 11 to 10gm. his platelet count is 25,000 platelets. his bilirubin is elevated at 3.3. coags are pending. He is currently resting comfortably. He has no sign of ongoing bleeding. Past Medical History Past Medical History (Chronic Problems): Chronic Problems Thrombocytopenia (Chronic) Esophageal varices (Chronic) Alcoholism (Chronic) Depression (Chronic) Hypertension (Chronic) Allergies No Known Allergies Allergy (Verified 02/04/18 13:27) Home Medications: Ambulatory Orders Medication Instructions Recorded Multivitamins,Ther W-Minerals 1 tablet PO DAILY 08/13/14 Surgical History: - - Right and left wrist surgery secondary to fracture Psychiatric History: Depression Lives: Alone Smoking Status: Current every day smoker Tobacco Use: Cigarettes Alcohol: Heavy Drugs: None - *Family History Maternal History Items: - - brain aneurysm Paternal History Items: Hypertension, - - alcoholism Sibling History Items: No pertinent history Review of Systems Constitutional: Reports: Anorexia, Malaise, Weakness Gastrointestinal: Reports: Hematemesis, Vomiting Patient Problems: Active and Suspected Problems Vomiting (Acute) - Physical Exam General: Alert, Oriented x3, - - icteric. Pupils Lungs: Normal air movement, Rhonchi - bases Cardiovascular: Regular rate, Regular Rhythm Abdomen: Bowel Sounds Present, Soft, Non Tender, Hepatomegaly - -likely,, Splenomegaly - likely, ? shifting dullness ? mild ascites Vital Signs Temp Pulse Resp BP Pulse Ox 99.7 F H 96 16 152/88 H 97 02/04/18 17:58 02/04/18 18:10 02/04/18 17:58 02/04/18 17:58 02/04/18 16:57 Oxygen Delivery Method Room Air Weight: 67 kg Body Mass Index (BMI) 19.5 Laboratory Tests Past 24 Hrs Hgb 10.1 L Hct 31.0 L Phosphorus 2.4 L Magnesium 2.3 Blood Type Pending Assessment/Plan Active and Suspected Problems Vomiting (Acute) alcoholic liver disease, alcohol withdrawal, impending delirium tremens, hematemesis, history of esophageal varices I have discussed with the patient and Dr. Miles, the severe risk with bleeding varices and severe thrombocytopenia. His hemoglobin overall seems relatively stable. Hopefully, this was a Mary-Henderson tear was vomiting and not variceal bleeding. If the patient has significantly increased or recurrent bleeding-may require emergency upper endoscopy with possible banding. We discussed if he has unstable bleeding. The next step would be transfer for emergency TIPS procedure. I plan to obtain an ammonia level as a baseline in the event that emergency TIPS is considered. The patient will be transfused platelets. He is currently being appropriately treated for his alcohol withdrawal symptoms. I plan to obtain a CT scan of the abdomen and pelvis to assess for hepatosplenomegaly and other sequelae of cirrhosis including ascites. 02/04/18 2100 <Electronically signed by Bari Tan MD> Date Bari Tan MD Cosigner Signature (if applicable): Date CC: Osorio Hastings DO; Bari Tan MD Signed ABDOMEN/PELVIS WITHOUT Observed: 02/04/2018 Status: F Source: [facility] CONT 7:13 PM [facility] REPOSITORY [facility] Imaging Services [address] [place] [address] Abdomen/Pelvis without Cont MR#: [id number] Acct: [id number] Name: JACK WILD Rep #: [id number] : 1970 M 47 From: José Miguel Baptiste MD PCP: Osorio Hastings DO Status: ADM IN Study: Abdomen/Pelvis without Cont Date of Exam: 02/04/18 Exam# [id number] Ordering Dr: Bari Tan MD STUDY: CT ABDOMEN AND PELVIS WITHOUT CONTRAST REASON FOR EXAM: Male, 47 years old. Pain with nausea and vomiting RADIATION DOSAGE (If Supplied By Facility): CTDIvol = ( 6.64 ) mGy, DLP = ( 360.04 ) mGycm TECHNIQUE: Transaxial images were obtained from the dome of the diaphragm to the symphysis pubis without oral contrast, and without intravenous contrast. Sagittal and coronal images were reconstructed. Individualized dose optimization techniques were used for this CT. COMPARISON: None. FINDINGS: There is minor atelectasis within the dependent portion of the lungs.. The visualized portions of the heart are within normal limits. Small hiatal hernia is present Liver is enlarged more pronounced on the left and there is multilobulated appearance consistent with cirrhosis. There are no dilated ducts. There are focal areas of decreased echogenicity consistent with multiple space-occupying lesions which are poorly defined. MRI recommended for further evaluation There is borderline splenomegaly . There are multiple gallstones but no evidence for acute cholecystitis. There are extensive gastroesophageal, perigastric, splenorenal and retroperitoneal varices consistent with portal hypertension. Normal pancreas. Mild diffuse mesenteric edema but no appreciable ascites. Normal bilateral adrenal glands. There are multiple bilateral renal calculi. No evidence for hydronephrosis or ureteral calculus. There is no definitive evidence for renal mass given limited unenhanced nature of the study. There is concentric thickening of the escobedo of the gastric fundus with narrowing of the lumen which may be consistent with nonspecific gastritis.. There is mild nonspecific ileus but no evidence for small bowel obstruction. Normal colon. No evidence for acute appendicitis. Atherosclerotic calcification of the aorta without evidence for aneurysm.. Normal inferior vena cava. Normal retroperitoneum. Normal urinary bladder. Nonspecific enlargement of the prostate. Normal abdominal wall. Normal osseous structures. CT/Abdomen/Pelvis without Cont IMPRESSION: Findings consistent with hepatic cirrhosis and splenomegaly with changes of portal hypertension. There appear to be multiple poorly defined space-occupying lesions. MRI would be helpful for more definitive evaluation Cholelithiasis without definitive evidence for acute cholecystitis. Findings consistent with nonspecific gastritis. Bilateral nephrolithiasis without evidence for hydronephrosis or ureteral calculus Other findings as above Electronically Signed: José Miguel Baptiste MD at 20:22 EDT , Service support , CC: Osorio Hastings DO; Bari Tan MD Marine Meteorologist: Signed HH, HEMOGLOBIN AND Collected: 02/04/2018 Status: F Source: [place] HEMATOCRIT 5:33 PM [facility] REPOSITORY TYPE CODE TESTS RESULT OUT OF RANGE REFERENCE UNITS LAB L100.1300 13.0-16.5 g/dl Low HGB 10.1 LAB L100.1400 40-54 % Low HCT 31.0 Performed By: #### L100.0600 #### [facility] [address] [place], [address] PHOSPHORUS Collected: 02/04/2018 Status: F Source: [place] 5:33 PM [facility] REPOSITORY TYPE CODE TESTS RESULT OUT OF RANGE REFERENCE UNITS LAB L501.2300 2.5-4.9 mg/dL Low PHOS 2.4 Performed By: #### L501.2300, L501.5200 #### [facility] [address] [place], [address] MAGNESIUM Collected: 02/04/2018 Status: F Source: [place] 5:33 PM [facility] REPOSITORY TYPE CODE TESTS RESULT OUT OF RANGE REFERENCE UNITS LAB L501.5200 1.6-2.6 mg/dL Normal MG 2.3 Result Comment: Please note revised Magnesium reference range effective 2017. Performed By: #### L501.2300, L501.5200 #### [facility] [address] [place], [address] ABO RH BLOOD TYPE, Collected: 02/04/2018 Status: F Source: [place] PATIENT 5:33 PM [facility] REPOSITORY Order Comment: Number of units to be transfused: 1 CMV NEG? N Give When? n Irradiated? N TYPE CODE TESTS RESULT OUT OF RANGE REFERENCE UNITS LAB B10.0800 A Normal BLOOD POSITIVE TYPE GEL Performed By: #### B10.0010 #### [facility] [address] [place], [address] PPHR Collected: 02/04/2018 Status: F Source: [place] 5:33 PM [facility] REPOSITORY TYPE CODE TESTS RESULT OUT OF REFERENCE UNITS RANGE LAB U100.0700 [id number] TRANSFUSED PRODUCT: Platelets Apheresis PPHR LR SD COUNT: 1 Performed By: #### U100.0700 #### Non-[facility] - refer to report for specific site HISTORY AND PHYSICAL Observed: 02/04/2018 Status: F Source: [place] EXAM 5:05 PM [facility] REPOSITORY [facility] Medical Records Department [address] [place] [address] History and Physical 02/04/18 1559 MR#: [id number] Acct: [id number] Name: JACK WILD Rep #: [id number] : 1970 47 From: Fan THOMPSON PCP: Osorio Hastings DO Status: ADM IN Y Location[place] [facility] [id number] ADDENDUM by Jacey Miles on 02/04/18 at 1705 Code Visit ATTENDING PHYSICIAN NOTE: I have seen and examined the patient independently and agree with the assessment, plan, history per Fan Lieberman as noted. Chief Complaint: Intractable nausea, emesis, EtOH withdrawal The patient is a 47 y/o M w/ PMHx: EtOH Abuse ( 12 pack beer/day) with Hx DTs noting last EtOH intake 24 hours prior with ongoing malaise, nausea, emesis following (Most recently sober 6-8 months prior), HTN, Hx GI bleed w/ varicies, Chronic Anemia, Chronic Thrombocytopenia who presents to the [facility] ED on 02/04/18 w/ history of onset nausea, emesis, malaise x 24 hours. He notes with emesis he had onset bright red blood, initially more, now lessened and also noted some BRB per rectum when he moved his bowels also but no black melanotic appearing stools. In the ED he improved notable following initial presentation, work-up included T 99, HR 114-->98, BP 190/113-->176/99, RR 22-->16, 100% on RA, CBC w/ WBC 5.1, Hgb 11 (12 appears baseline), Plts 25 (80-140 baseline) without marked shift, AST/ALT 161/57 (07/24/16 AST/ALT 65/48, Alk phos 130), UA not marked, UDS negative, EtOH negative. In the ED patient administered NS, zofran, ativan. Labs, Allergies, Home medications, Social Hx, PSurgHx, Family Hx per note below. Admission Review of Systems: CONSTITUTIONAL: No weight loss, fever, chills. + weakness or fatigue. HEENT: Eyes: No visual loss, blurred vision, double vision or yellow sclerae. Ears, Nose, Throat: No hearing loss, sneezing, congestion, runny nose or sore throat. SKIN: No rash or itching, lesions, wounds. CARDIOVASCULAR: No chest pain, chest pressure or chest discomfort, palpitations, edema, orthopnea, syncopal events. RESPIRATORY: No shortness of breath, cough or sputum, wheezing, hemoptysis. GASTROINTESTINAL: + No nausea, vomiting or diarrhea, abdominal pain, BRBPR, BRB with emesis. GENITOURINARY: No dysuria, frequency, urgency or retention. NEUROLOGICAL: + Lightheadedness, dizziness. No headache, syncope, paralysis, ataxia, numbness or tingling in the extremities, focal weakness, change in bowel or bladder control, seizure. MUSCULOSKELETAL: No muscle, back pain, joint pain or stiffness. HEMATOLOGIC: + anemia, bleeding or bruising. LYMPHATICS: No enlarged nodes. No history of splenectomy. PSYCHIATRIC: + history of depression or anxiety. ENDOCRINOLOGIC: No reports of sweating, cold or heat intolerance. No polyuria or polydipsia. ALLERGIES: No history of asthma, hives, eczema or rhinitis. Admission VS: As noted below. Physical Examination: General: awake, alert, oriented x 3 and cooperative, seated upright in the ED bed in no apparent distress, notes feeling much improved since initial presentation. Skin: normal color, turgor, no icterus, cyanosis. HEENT: AT/NC, EOMI, PERRLA, dry MM, no carotid bruits or JVD noted. Lungs: CTA bilaterally, moderate effort, mild decrease BL bases, no rales, ronchi or wheezing. Heart: Regular rate and rhythm; no gallop, rub audible. Abdomen: soft, no marked TTP, ND, mildly hyperactive BS, + HM. Extremities: no cyanosis, clubbing, or edema. Neurological: patient awake, alert, oriented x 3; cognitive function intact; pupils equally reactive to light and accomodation; cranial nerves II-XII grossly normal, moving all 4 extremities, no focal deficits, strength moderately to severely globally decreased secondary to acute presentation. Psychiatric: affect appears calm, notably improved since ativan he notes, no acute evidence of depressive or anxiety feelings. Assessment and Plan: The patient is a 47 y/o M w/ PMHx: EtOH Abuse with Hx DTs noting last EtOH intake 24 hours prior with ongoing malaise, nausea, emesis following, HTN, Hx GI bleed w/ varicies, Chronic Anemia, Chronic Thrombocytopenia who presents to the [facility] ED on 02/04/18 w/ history of onset nausea, emesis, malaise x 24 hours. He notes with emesis he had onset bright red blood, initially more, now lessened and also noted some BRB per rectum when he moved his bowels also but no black melanotic appearing stools. (1) Acute EtOH Withdrawal: Will admit to [facility] on telemetry, will initiate and continue on [facility] service protocol with taper course of librium, as needed Seroquel, Catapres, Bentyl, Vistaril, IV fluids, IV antiemetics, Tylenol as needed for pain. Once patient clinically improved and completion of taper nearing will plan [facility] assistance for transition to next level of rehabilitation care. Mag, phos pending. Maintain on CIWA protocol. (2) Acute GI Bleed w/ resultant Acute Blood Loss Anemia with Hx Chronic Normocytic Anemia w/ Hx GI Varicies: Patient w/ hematemesis and PRBPR with stools with #1, suspected secondary to primarily severity of emesis w/ withdrawal, admission Hgb 11, given mild appearance and stable, maintain on IVFs, obtain serial H+H q 6 hours, administering Plts given Plts 25 in the setting of bleeding with repeat CBC following also, maintain on IV PPI, Dr. Tan consulted, pending. (3) Acute on Chronic Thrombocytopenia: Admission Plts 25, baseline as noted usually more 130s, Plts ordered and plan repeat CBC following. Additional Co-morbidities: Hypertension: Likely elevated in the ED secondary to rebound w/ inability to take his clonodine, restart home regimen, PRN hydralazine. Inpatient E AND M: [id number] Init Hosp L3 02/04/18 1705 <Electronically signed by Jacey Miles > Date Jacey Miles cc: DONNA Lieberman; Jacey Miles; Osorio Hastings DO * Signed Problem List (1) Alcohol withdrawal Status: Acute (2) Vomiting Status: Acute Qualifiers: Vomiting type: hematemesis (3) Thrombocytopenia Status: Chronic (4) Esophageal varices Status: Chronic (5) Alcoholism Status: Chronic (6) Depression Status: Chronic (7) Hypertension Status: Chronic History of Present Illness Date of Admission: 02/04/18 Chief Complaint: Nausea and vomiting The patient is a 47 year old M alcoholic who presents to the ER with severe nausea and vomiting. This began last night. He drinks about a 12 pack per day, last sober in 2016. He stated that he initially vomited up a large amount of red blood, and that the rest of the episodes of vomiting had small amounts of red blood. This morning he moved his bowels and saw red blood in that as well. He states that he has a history of bleeding esophageal varices and has had EGDs in the past. His platelets are low at 25 and he states that he has had this in the past as well. He has been inpatient for detox one other time several years ago, and denies having any witnessed seizures, or admission requiring intubation and sedation, but does have a history of DTs. He has some mild LLQ abdominal discomfort. He has no fevers or chills. He feels somewhat lightheaded. [] Past Medical History Past Medical History (Chronic Problems): Chronic Problems Thrombocytopenia (Chronic) Esophageal varices (Chronic) Alcoholism (Chronic) Depression (Chronic) Hypertension (Chronic) Allergies No Known Allergies Allergy (Verified 02/04/18 13:27) Home Medications: Ambulatory Orders Medication Instructions Recorded Multivitamins,Ther W-Minerals 1 tablet PO DAILY 08/13/14 Surgical History: - - Right and left wrist surgery secondary to fracture Psychiatric History: Depression Lives: Alone Smoking Status: Current every day smoker Tobacco Use: Cigarettes Alcohol: Heavy Drugs: None - *Family History Maternal History Items: - - brain aneurysm Paternal History Items: Hypertension, - - alcoholism Sibling History Items: No pertinent history Review of Systems Constitutional: Denies: Chills, Fever, Weight Change HEENT: Denies: Head Aches, Sinus Congestion, Sinus Drainage Cardiovascular: Denies: Chest Pain, Palpitations Respiratory: Denies: Cough, Shortness of breath at rest, Sputum production Gastrointestinal: Reports: Abdominal Pain, Hematemesis, Hematochezia, Nausea, Vomiting Genitourinary: Denies: Dysuria Musculoskeletal: Denies: Joint Pain, Joint Tenderness Skin: Denies: Rash, Wounds Neurological: Denies: Numbness, Tingling, Focal weakness Psychiatric: Denies: Anxiety, Depression, Homicidal Ideations, Suicidal Ideations Hematologic/ Lymphatic: Denies: Easy Bruising, Easy Bleeding VTE Information - Inpt Only VTE Present on Admission: No VTE Mechan Device Prophylaxis: SCD's VTE Pharm Prophylaxis ordered?: No Reason prophylaxis not ordered:: Medical Contraindication Patient Problems: Active and Suspected Problems Vomiting (Acute) - Physical Exam General: Alert, Oriented x3, Cooperative HEENT: Atraumatic, PERRLA, EOMI, Normocephalic Neck: Supple, No JVD, Negative Carotid Bruits Lungs: Clear to auscultation, Normal air movement Cardiovascular: Regular rate, No murmurs Abdomen: Bowel Sounds Present, Soft, Non Tender Extremities: No edema, Capillary Refill Less than 3 Seconds Skin: No rashes, No breakdown Musculoskeletal: No Tenderness to Palpation of Joints or Extremities Neurological: Cranial nerves II-XII grossly intact Psych/Mental Status: Normal Affect, Appropriate, Alert and oriented to time, place, person, mood and affect Vital Signs Temp Pulse Resp BP Pulse Ox 99.1 F 96 16 182/90 H 99 02/04/18 13:21 02/04/18 15:17 02/04/18 15:17 02/04/18 15:17 02/04/18 15:17 Oxygen Delivery Method Room Air Weight: 69.2 kg Body Mass Index (BMI) 20.1 Laboratory Tests Past 24 Hrs WBC 5.1 RBC 3.48 L Hgb 11.0 L Hct 32.9 L WBC RBC Hgb Hct MCV MCH MCHC RDW RDW Differential Plt Count MPV Immature Gran % (Auto) Assessment/Plan Active and Suspected Problems Vomiting (Acute) 1. Acute alcohol withdrawal - initiate CIWA protocol, thiamine and folic acid supplementation. Ativan + librium. Drinks 12 beers/day. Start IV fluids. Check Mag/Phos 2. Hematemesis and Bloody stools - hx bleeding esophageal varices, very concerning with thrombocytopenia. Provide 5pack platelets. Serial H/H. IV protonix. Consult to general surgery. T/S. Clear liquid diet. 3. Elevated LFTs - abdominal US to assess for ascites. Check Hepatitis panel 4. Acute blood loss anemia 2/2 #2 - plan as above 5. HTN - significantly elevated. start home meds if able to tolerate. PRN lopressor/hydralazine if remains significantly elevated. DVT ppx: SCDs, no chemoppx with bleeding DC planning: pending clinical course This patient was seen by Fan Lieberman PA-C under the supervision of Doctor Ginger. 02/04/18 1618 <Electronically signed by Fan THOMPSON> Date Fan THOMPSON 02/04/18 1647<Electronically signed by Jacey Miles > Cosigner Signature: Date (if applicable) Jacey Miles CC: DONNA Lieberman; Jacey Miles; Osorio Hastings DO Signed EMERGENCY DEPARTMENT Observed: 02/04/2018 Status: F Source: [place] SUMMARY 4:33 PM [facility] REPOSITORY [facility] Medical Records Department [address] [place] [address] Emergency Department Summary 02/04/18 1547 MR#: [id number] Acct: [id number] Name: JACK WILD Rep #: [id number] : 1970 47 From: Nehemiah Jackson MD PCP: Osorio Hastings DO Status: ADM IN - ER Visit Summary Date of Service: 02/04/18 Chief Complaint: Alcohol withdrawal History of Present Illness: The patient is a 47 M with alcohol withdrawal. Drink was yesterday evening. He was drinking a 12 pack of beer per day. No other drug use. He has a history of DTs but no history of seizures. His last clean and sober. Was about 6-8 months ago. He also reports a history of hypertension. Physical Examination: Hypertensive and tachycardic. Actively vomiting. Appears very uncomfortable. Heart tachycardic but regular. Lungs clear. Abdomen soft and nontender. Moves all extremities. No focal or lateralizing abnormalities grossly. His any suicidal or homicidal thoughts. Test Results: Hemoglobin 11 and platelets 25. CMP unremarkable. Urinalysis unremarkable. Tox screen and alcohol unremarkable. EKG shows sinus tach with no signs of acute ischemia or infarction. Emergency Department Course and Treatment: She received fluids, Ativan, and Zofran while awaiting results. On reassessment, heart rate is 100. He feels much better. He looks objectively better. I believe patient would benefit from inpatient evaluation and treatment for alcohol withdrawal. I spoke with the hospitalist who will admit. Treatment Plan: As above Disposition: Admission to [facility] with telemetry Impression: 1. Alcohol withdrawal 2. Anemia 2. Thrombocytopenia This note was generated with [employer] dictation software. It may contain incorrect words, spelling, and punctuation that were not noted in review of the chart prior to signing ED Disposition - Plan for ED Patient: Chief Complaint: Subst Abuse Referrals: Osorio Hastings, [Primary Care Provider] - What to do if you have Problems For any increased pain, shortness of breath, bleeding, nausea or vomiting, chest pain, or any unexpected problems, contact your Primary Care Provider. Call [facility] ([phone]) or report to the closest Emergency Room. Call 911 if necessary. 02/04/18 1633 <Electronically signed by Nehemiah Jackson MD> Date Nehemiah Jackson MD Cosigner Signature (If Indicated): Date CC: Osorio Hastings DO ABDOMEN COMPLETE Observed: 02/04/2018 Status: F Source: [place] 4:11 PM [facility] REPOSITORY [facility] Imaging Services [address] [place] [address] Abdomen Complete MR#: [id number] Acct: [id number] Name: JACK WILD Rep #: [id number] : 1970 M 47 From: José Miguel Baptiste MD PCP: Venkata DO,Osorio Status: ADM IN Study: Abdomen Complete Date of Exam: 02/04/18 Exam# [id number] Ordering Dr: Fan Lieberman STUDY: ABDOMINAL ULTRASOUND REASON FOR EXAM: Male, 47 years old. Elevated LFT TECHNIQUE: Transabdominal ultrasound was performed with real-time and static gutierrez scale imaging. TECHNICAL QUALITY: Adequate. COMPARISON: None. FINDINGS: Liver: The liver measures 18.2 cm. There is heterogeneous echogenicity of the liver. The bile ducts are within normal limits. There is hepatic color flow. The direction of portal flow is hepatopetal. There is no demonstrated mass lesion. Portal vein measurement: Gallbladder: Normal distended gallbladder. The gallbladder wall measures 2 mm. There is a negative sonographic Pandey's sign. There is no pericholecystic fluid. There are multiple gallstones. Common Bile Duct (C.B.D.): The common bile duct measures 4 mm. Pancreas: Normal size of the head, body and tail of the pancreas. There is normal echogenicity of the pancreas. There is no demonstrated pancreatic mass or cyst. Spleen: Spleen is enlarged measuring 14 cm. Right Kidney: Normal size of the right kidney. The right kidney measures 10.5 x 5.3 x 6.2 cm. Normal renal cortex. The right cortex measures 1.4 cm. There is no demonstrated renal mass or cyst. There is no right hydronephrosis. Left Kidney: Normal size of the left kidney. The left kidney measures 12.6 x 4.6 x 5.3 cm. Normal renal cortex. The left cortex measures 1.8 cm. There are small cysts the largest measuring 5 mm. There is no left hydronephrosis. Aorta: No evidence for aortic aneurysm I.V.C.: The IVC is patent. There is no ascites. US/Abdomen Complete IMPRESSION: Hepatosplenomegaly due to hepatocellular disease. Cholelithiasis without evidence for acute cholecystitis Electronically Signed: José Miguel Baptiste MD at 19:33 EDT , Service support , CC: DONNA Lieberman; Osorio Hastings DO Marine Meteorologist: Signed URINE DRUG SCREEN Collected: 02/04/2018 Status: F Source: [place] (VISTA) 3:01 PM [facility] REPOSITORY TYPE CODE TESTS RESULT OUT OF RANGE REFERENCE UNITS LAB L505.0075 TO BE Normal CONFIRMED Result Comment: CONFIRMATORY TESTING FOR ALL POSITIVE URINE DRUG SCREEN RESULTS WILL ONLY BE SENT OUT UPON PHYSICIAN ORDER. VISTA Urine Drug Screen methods provide only preliminary analytical test results. A more specific alternate chemical method must be used in order to obtain a confirmed analytical result. Gas chromatography/mass spectrometery (GC/MS) is the preferred confirmatory method. Clinical consideration and professional judgement should be applied to any drug of abuse test result, particularly when preliminary positive results are used. URINE TCA TESTING MUST BE ORDERED SEPARATELY. USE TEST MNEMONIC: [facility] LAB L505.5005 VISTA UDS PH 6 Normal LAB L505.5015 <1000 ng/mL AMPHETAMINES Normal NEGATIVE LAB L505.5025 < 200 ng/mL BARBITIURATES Normal NEGATIVE LAB L505.5035 < 200 ng/mL BENZODIAZIPINE Normal NEGATIVE LAB L505.5045 < 300 ng/mL COCAINE Normal NEGATIVE LAB L505.5055 < 500 ng/mL ECSTACY Normal NEGATIVE LAB L505.5065 < 300 ng/mL METHADONE Normal NEGATIVE LAB L505.5075 < 300 ng/mL OPIATES Normal NEGATIVE LAB L505.5085 < 25 ng/mL PCP Normal NEGATIVE LAB L505.5095 < 50 ng/mL THC Normal NEGATIVE Performed By: #### L505.5000 #### [facility] [address] [place], [address] URINALYSIS, COMPLETE Collected: 02/04/2018 Status: F Source: [place] 3:01 PM [facility] REPOSITORY Order Comment: How was Urine Obtained? CLEAN CATCH TYPE CODE TESTS RESULT OUT OF RANGE REFERENCE UNITS LAB L400.3000 Yellow COLOR Normal Yellow LAB L400.3050 Clear Normal CLARITY Clear LAB L400.3200 Normal mg/dl Normal GLUCOSE, UR Normal LAB L400.3300 Negative mg/dL High BILIRUBIN URINE 3 Result Comment: COLOR OF URINE MAY AFFECT DIPSTICK RESULTS. LAB L400.3400 Negative mg/dl High KETONE UR 50 LAB L400.3465 1.002-1.030 Normal SP.GR. DIPSTX 1.015 LAB L400.3550 5.0 - 8.0 pH Normal UR 6.0 LAB L400.3600 Negative mg/dl High PROT DIPSTX 30 LAB L400.3700 Normal mg/dl High UROBILI 8 LAB L400.3750 Negative Normal NITRITE UR Negative LAB L400.3780 Negative /ul High OCCULT 150 BLOOD-UR LAB L400.3800 Negative /ul High LEUK ESTERASE 25 LAB L400.4050 0-5 /hpf Normal WBC 0-5 SEEN LAB L400.4100 0-5 /hpf Normal RBC-UA 0-5 SEEN LAB L400.4150 0-5 /hpf Normal SQUAM EPI 0-5 SEEN LAB L400.4300 None Seen /hpf Normal BACTERIA 1+ LAB L400.4350 <or=2+ /hpf Normal MUCUS, URINE 0 SEEN LAB L400.4400 0-5 /lpf Normal HYALINE CAST 0-5 SEEN Performed By: #### L400.0001 #### [facility] [address] [place], [address] CBC W/DIFF, AUTOMATED Collected: 02/04/2018 Status: C Source: [place] 1:53 PM [facility] REPOSITORY TYPE CODE TESTS RESULT OUT OF RANGE REFERENCE UNITS LAB L100.1000 4.4-11.0 K/mm3 Normal WBC 5.1 LAB L100.1200 4.6-6.2 M/mm3 Low RBC 3.48 LAB L100.1300 13.0-16.5 g/dl Low HGB 11.0 LAB L100.1400 40-54 % Low HCT 32.9 LAB L100.1500 80-94 fL High MCV 94.5 LAB L100.1600 27.0-32.0 pg Normal MCH 31.6 LAB L100.1700 32-36 g/gl Normal MCHC 33.4 LAB L100.1810 11.6-14.6 % High RDW CV 16.0 LAB L100.1820 35.1-43.9 fl High RDW SD 52.9 LAB L100.1900 150-450 K/mm3 Low alert PLT 25 Result Comment: CRITICAL VALUE VERIFIED. CALLED TO MINNA BRYAN 02/04/18 1413 Mark Perez. RESULTS READ BACK BY SAME. LAB L100.2000 6.2-12.0 fl Normal MPV 10.7 LAB L100.2100 47-70 % High NEUT% 85.0 LAB L100.2200 19-41 % Low LY% 3.9 LAB L100.2300 0-10 % High MONO% 10.7 LAB L100.2400 0-5 % Normal EO% 0.0 LAB L100.2500 0-1 % Normal BASO% 0.2 LAB L100.2550 0.0-0.9 % Normal IM 0.200 GRAN % Result Comment: IG% - Immature Granulocytes (promyelocytes, myelocytes and metamyelocytes) > 1% indicates that a LEFT SHIFT is Present. LAB L100.2620 2.0-7.7 X10 3/uL Normal Absolute Neut 4.4 LAB L100.2720 0.83-4.51 X10 3/ul Low Absolute Lymph 0.20 LAB L100.4500 Normal SMEAR COMMENT COMMENT Result Comment: SLIDE SCANNED - LYMPHOPENIA, THROMBOCYTOPENIA. LAB L100.9900 Normal Reviewed PATH REV Result Comment: Thrombocytopenia. Clinical correlation necessary. Jose Wilkerson M.D. 02/05/18 Pathologist comment added AMENDED REPORT 02/05/18 0832 PATH REV previously reported as: March arlen Performed By: #### L100.0100 #### [facility] [address] [place], [place], [address] COMPREHENSIVE METABOLIC Collected: 02/04/2018 Status: F Source: [facility] 1:53 PM [facility] REPOSITORY TYPE CODE TESTS RESULT OUT OF RANGE REFERENCE UNITS LAB L501.0100 74-106 mg/dL High GLU 133 Result Comment: Fasting Glucose result greater than or equal to 126 mg/dL suggests DIABETES MELLITUS per A.D.A. criteria. Please note revised GLUCOSE reference range effective 2017. LAB L501.1000 7-18 mg/dL Normal BUN 18 LAB L501.1100 0.70-1.30 mg/dL Normal CREAT,SERUM 1.25 Result Comment: The validity of the calculated GFR AND GFRAA in patients over 70 years has not been determined. Clinical correlation is essential. LAB L501.1110 >60 mL/min Normal EST GFR 66 Result Comment: Non- GFR Calc LAB L501.1115 >60 mL/min Normal EST GFR - AA 80 Result Comment: GFR Calc LAB L501.1255 ml/min Normal Estimated CRCL 73.04 LAB L501.1300 10-20 RATIO Normal BUN/CRE 14.4 LAB L501.1500 6.4-8. g/dL High 2 T PROT 8.3 LAB L501.1800 3.2-5. g/dL Normal 0 ALB 3.6 LAB L501.1950 2.2-4. g/dL High 2 GLOB 4.7 LAB L501.2000 0.9-2. RATIO Low 4 A/G 0.8 LAB L501.2200 8.5-10 mg/dL Normal .1 CA 8.8 LAB L501.4100 15-37 U/L High AST 161 LAB L501.4305 45-117 U/L High ALK P 507 LAB L501.4405 16-61 U/L Normal ALT 57 Result Comment: Please note revised ALT reference range effective 2017. LAB L501.4600 0.20-1.00 mg/dL High T BILI 3.30 LAB L501.5300 136-145 mmol/L Normal NA 141 LAB L501.5600 3.5-5.1 mmol/L Normal K 4.2 LAB L501.5900 98-107 mmol/L High CL 108 LAB L501.6100 21.0-32.0 mmol/L Normal CO2 22.0 LAB L501.6200 5-15 Normal GAP 11 Performed By: #### L500.4050 #### [facility] [address] [place], [address] ALCOHOL, BLOOD Collected: 02/04/2018 Status: F Source: [place] ([facility])-SERUM 1:53 PM [facility] REPOSITORY TYPE CODE TESTS RESULT OUT OF RANGE REFERENCE UNITS LAB L501.9100 mg/dL Normal SERUM < 3.0 ETOH Result Comment: The serum:whole blood ethanol ratio is approximately 1.14 and varies slightly with hematocrit. Medical Alcohol reference interval and critical value in non-tolerant individuals; 50 - 100 Impairment 100 Intoxication 100 - 250 Severe Poisoning 250 - 400 Deep/possible fatal coma Performed By: #### L501.9100 #### [facility] [address] [place], [address] EMERGENCY DEPARTMENT Observed: 12/29/2017 Status: F Source: [place] SUMMARY 11:46 PM [facility] REPOSITORY [facility] Medical Records Department [address] [place] [address] Emergency Department Summary 12/29/17 1917 MR#: [id number] Acct: [id number] Name: JACK WILD Rep #: [id number] : 1970 47 From: Sonali Lorenzana MD PCP: Osorio Hastings DO Status: DEP ER - ER Visit Summary Date of Service: 12/29/17 Chief Complaint: Head trauma History of Present Illness: The patient is a 47 M who presents for his second visit for a head trauma that occurred 4 days ago. Patient slipped and fell backwards on ice 4 days ago, hitting the back of his head. He denies loss of consciousness but was seen 2 days later and diagnosed with a concussion. He did not meet criteria for head imaging at that time. Patient came back because he states that he is continuing to have had pain in the occipital region, that is dull and achy, he is having episodes where he will be watching TV and then wake up 45 minutes later but states he did not actually fall asleep. He also is having some disequilibrium and intermittent blurred vision. Patient denies fever, double vision, abdominal pain, nausea or vomiting, or any other symptoms. He denies an overt headache. Patient states he does drink several beers a day, and he did have 4 beers prior to coming in today. He denies any other medical history. He denies being on blood thinners. Physical Examination: Vital signs: afebrile, hypertensive, no hypoxia on room air General: well nourished, well developed, in no distress sitting in a chair awake and alert Skin: warm, dry, no rash, no pallor HEENT: normocephalic and atraumatic; PERRL, EOMI, horizontal nystagmus bilaterally, moist mucous membranes Cardiovascular: regular rate and rhythm without murmurs, no peripheral edema, 2+ pulses all distal extremities Respiratory: No increased work of breathing, lungs are clear to auscultation bilaterally, no rales, rhonchi or wheezing Abdominal: Abdomen is soft, nontender with normoactive bowel sounds, no guarding or rebound, no masses MSK: Moves all extremities, no deformities, normal strength Neuro: Awake and alert, oriented 4. No facial droop, sensation and motor function intact and symmetric, steady gait, able to walk on toes and heels, heel-to-toe gait is normal Test Results: [] Emergency Department Course and Treatment: Patient presents 4 days after a head trauma with concussive symptoms but is concerned about a possible intracranial hemorrhage. We discussed the risks and benefits of a head CT, and although a head CT is not indicated in this situation, this is patient's second visit and he feels he would have better reassurance that it is just a concussion if he knows there is no intracranial hemorrhage. Because he is a heavy drinker, he might be more prone to a subsequent fall that he does not remember, thus a head CT was performed. No intracranial pathology or skull fracture was noted. Discussed with patient concussive symptoms and that also with him drinking heavily, it may be difficult to tell the difference between concussive symptoms and intoxication or withdrawal. Patient was encouraged to not drinking heavily, especially until he has completely recovered from his head trauma. Patient is to follow-up with his doctor. He will return if any further concerns. Discharge home. Treatment Plan: [] Disposition: [] Impression: Concussion, subsequent visit This note was generated with [employer] dictation software. It may contain incorrect words, spelling, and punctuation that were not noted in review of the chart prior to signing ED Disposition - Plan for ED Patient: Disposition: Home or Assisted Living Chief Complaint: Head Injury Instructions: ED Concussion Referrals: Osorio Hastings, [Primary Care Provider] - 1 Week if not improving Additional Instructions: Your head scan showed no bleeding. Please be moderate in your alcohol use, especially while you are having symptoms from a concussion. Please follow- up with your doctor within 1 week if you are not having improvements. If you have any worsening of your condition, please return the emergency department for another evaluation. What to do if you have Problems For any increased pain, shortness of breath, bleeding, nausea or vomiting, chest pain, or any unexpected problems, contact your Primary Care Provider. Call [facility] ([phone]) or report to the closest Emergency Room. Call 911 if necessary. 12/29/17 2346 <Electronically signed by Sonali Lorenzana MD> Date Sonali Lorenzana MD Cosigner Signature (If Indicated): Date CC: Osorio Hastings DO DISCHARGE INSTRUCTION Observed: 12/29/2017 Status: F Source: [place] 11:29 PM [facility] REPOSITORY [facility] Medical Records Department [address] [place] [address] Discharge Instruction 12/29/172031 MR#: [id number] Acct: [id number] Name: JUNITOJACK J Rep #: [id number] : 1970 47 From: Sonali Lorenzana MD PCP: Osorio Hastings DO Status: DEP ER ED Disposition - Plan for ED Patient: Disposition: Home or Assisted Living Chief Complaint: Head Injury Instructions: ED Concussion Referrals: Osorio Hastings DO [Primary Care Provider] - 1 Week if not improving Additional Instructions: Your head scan showed no bleeding. Please be moderate in your alcohol use, especially while you are having symptoms from a concussion. Please follow- up with your doctor within 1 week if you are not having improvements. If you have any worsening of your condition, please return the emergency department for another evaluation. What to do if you have Problems For any increased pain, shortness of breath, bleeding, nausea or vomiting, chest pain, or any unexpected problems, contact your Primary Care Provider. Call [facility] ([phone]) or report to the closest Emergency Room. Call 911 if necessary. 12/29/179 <Electronically signed by Sonali Lorenzana MD> Date Sonali Salomón MD Cosigner Signature (If Indicated): Date CC: Osorio Hastings DO BRAIN/HEAD WITHOUT Observed: 12/29/2017 Status: F Source: KARI CONTRAST 7:17 PM [facility] REPOSITORY [facility] Imaging Services [address] [place] [address] Brain/Head without Contrast MR#: [id number] Acct: [id number] Name: JACK WILD Rep #: [id number] : 1970 M 47 From: Bro Cantu MD PCP: Osorio Hastings DO Status: REG ER Study: Brain/Head without Contrast Date of Exam: 12/29/17 Exam# [id number] Ordering Dr: Sonali Lorenzana MD STUDY: CT BRAIN WITHOUT CONTRAST REASON FOR EXAM: Male, 47 years old. TRAUMA, HIT BACK OF HEAD, NO LOC RADIATION DOSAGE (If Supplied By Facility): CTDIvol = ( 44.99 ) mGy, DLP = ( 812.98 ) mGycm TECHNIQUE: Transaxial CT imaging of the brain was performed without administration of intravenous contrast material. COMPARISON: None. FINDINGS: Normal soft tissue structures. Normal calvarium. There are calcifications around the carotid artery. These are noted in the cavernous carotid arteries. There is mild cerebral atrophy with widening of the extra- axial spaces and ventricular dilatation. There are areas of decreased attenuation within the white matter tracts of the supratentorial brain, consistent with microvascular disease changes. Normal basal ganglia and thalami. Normal brainstem. There is mild cerebellar atrophy. There is no intracranial hemorrhage. There are no findings of an acute ischemic infarction. There is mild maxillary sinus disease. CT/Brain/Head without Contrast IMPRESSION: Chronic involutional changes of the brain. There are no acute findings. Electronically Signed: Bro Cantu MD at 20:04 EST , Service support , CC: Sonali Lorenzana MD; Osorio Hastings DO Marine Meteorologist: Signed EMERGENCY DEPARTMENT Observed: 12/27/2017 Status: F Source: O[place] SUMMARY 2:40 PM [facility] REPOSITORY [facility] Medical Records Department [address] [place] [address] Emergency Department Summary 12/27/17 1436 MR#: [id number] Acct: [id number] Name: JACK WILD Rep #: [id number] : 1970 47 From: Prabhjot Myers MD PCP: Osorio Hastings DO Status: REG ER - ER Visit Summary Date of Service: 12/27/17 Chief Complaint: Balance is off History of Present Illness: The patient is a 47 M who was walking home from work on Sunday. He slipped on the ice. He fell backwards striking the back of his head. He states he was dazed. He had no loss of conscious. Is not amnestic. He denies headache presently. He denies any double vision, blurred vision or loss of vision. Denies trouble with his hearing or speech. He denies any cardiac, respiratory, urologic symptoms. He did report nausea on Sunday. He is on no anticoagulant or antiplatelet medication. Physical Examination: Blood pressure is elevated 200 118. Head is atraumatic normocephalic. Pupils are equal round reactive. Extraocular muscles are intact. Optic exam reveals normal cup-to-disc ratio and no papilledema. TMs are pearly white with landmarks noted. Nares patent with no drainage. Posterior pharynx without erythema or exudate. Uvula is midline. There is no dysphonia or dysphasia. Trachea is midline. There is no stridor with auscultation of the neck. There is no cervical spine tenderness. Heart is regular without murmur, gallop or rub. S1 and S2 are normal. Lungs are clear to auscultation with good movement of air bilaterally. GCS is 15. Patient is alert and oriented 3. Motor is 5/5. Sensation is intact. DTRs are symmetric without clonus or Babinski. Cranial nerves II through XII are intact. Finger to nose to finger was performed adequately. It was observed and normal. He is able to walk on heels and toes. Tandem gait was normal. Romberg test with eyes open and eyes closed was normal. There was no truncal ataxia. Test Results: Recent was told he has a concussion and there is no test that needs to be performed to the emergency department to diagnose a concussion. Emergency Department Course and Treatment: Based on the Bruneian CT head rule and the Hazard rule radiological imaging is not indicated. Treatment Plan: Appropriate home-going instructions for concussion Disposition: To home with work excuse Impression: Concussion without loss of consciousness status post fall Accelerated hypertension and known hypertensive patient This note was generated with [employer] dictation software. It may contain incorrect words, spelling, and punctuation that were not noted in review of the chart prior to signing ED Disposition - Plan for ED Patient: Disposition: Home or Assisted Living Chief Complaint: Head Injury Instructions: ED Concussion, ED Hypertension Conf Out Of Control Referrals: Osorio Hastings, [Primary Care Provider] - 3-5 Days Additional Instructions: You should follow-up with Dr. Hastings in 3-5 days to have your blood pressure reassessed. What to do if you have Problems For any increased pain, shortness of breath, bleeding, nausea or vomiting, chest pain, or any unexpected problems, contact your Primary Care Provider. Call [facility] ([phone]) or report to the closest Emergency Room. Call 911 if necessary. 12/27/17 1440 <Electronically signed by Prabhjot Myers MD> Date Prabhjot Myers MD Cosigner Signature (If Indicated): Date CC: Osorio Hastings DO ALLERGIES ALLERGIES DATE TYPE / CODE NAME / CODE REACTION SEVERITY SOURCE 12/02/2018 Drug No Known Unknown [facility] Allergy/4160 Allergies/F00 Hospital 30160(SNOMED [id number](RXNOR Repository CT) M) ENCOUNTERS ENCOUNTERS ADMIT/DISCHARGE ACCOUNT ADMITTING ENCOUNTER LOCATION SOURCE NUMBER CLASS 12/02/2018/ [id number] Emergency [place] [facility] 9 6 [facility] ing:ED Repository 04/19/2018 [id number] Ambulatory [facility] [place] 5 [facility] ing:LAB.FUTUR Repository E 04/11/2018 [id number] Ambulatory [facility] [place] 6 [facility] ing:BFHLAB Repository 04/03/2018 [id number] Ambulatory [place] 1 [facility] ing:BFHLAB Repository 02/04/2018/ [id number] [facility] In[facility] [place] 8 1 Encounter [facility] ing:FF2Dapq: Repository UB142Gjv: 1 02/04/2018 [id number] Jacey [facility] Ambulatory BMS[facility]:B [place] 5 [facility] Repository 02/04/2018 [id number] Jacey [facility] Ambulatory BMSBuilding:B [place] 5 [facility] Repository 02/04/2018 [id number] Jacey [facility] Ambulatory BMSBuilding:B [place] 4 [facility] Repository 12/29/2017/ [id number] Emergency [place] 8 9 [facility] ing:ED Repository 12/27/2017/ [id number] Emergency [place] 8 7 [facility] ing:ED Repository PAYERS PAYERS ENCOUNTER GUARANTOR PAYER SUBSCRIBER SOURCE 12/02/2018 JACK Ceballos Primary [place] [id number] Insurance:ANTHEMPolic BATESDOB: [facility] Number: [id number] Hospital [address], [id number] Repository [place] [address]Zia: (895) ve Date:5698-41-11HY [phone] () [facility] [address], [place] [address]ZD: 12/02/2018 Secondary NOT GIVENUNK [place] Insurance:SELF PAY [facility] Number: Effective Repository Date:2018-12-02 04/19/2018 JACK Ceballos Primary JACK [place] [id number] Insurance:ANTHEMPolic BATESDOB: [facility] y Number: [id number], [id number] [place]ository [place] [address]Pus: ve Date:1688-51-73DB [phone]~330-[address], [place] [facility]) [address]GP: 04/19/2018 Secondary NOT GIVENUNK [place] Insurance:SELF PAY [facility] Number: Effective Repository Date:2018-04-19 04/11/2018 JACK Ceballos Primary JACK Ceballos Kari [id number] Insurance:ANTHEMPolic BATESDOB: [facility] y Number: [id number], [id number] Repository [place] [address]Spr: ve Date:8492-91-31DY [phone]~330-[address], [place] () [address]BP: 04/11/2018 Secondary NOT GIVENUNK [place] Insurance:SELF PAY [facility] Number: Effective Repository Date:2018-04-05 04/03/2018 JACK Ceballos Primary JACK Ceballos Kari [id number] Insurance:ANTHEMPolic BATESDOB: [facility] y Number: [id number], [id number] Repository [place] [address]Uvv: ve Date:8789-59-26FH [phone]~330-[address], [facility]) [address]IW: 04/03/2018 Secondary NOT GIVENUNK [place] Insurance:SELF PAY [facility] Number: Effective Repository Date:2018-04-03 02/04/2018 JACK Ceballos Primary JACK Ceballos Kari [id number] Insurance:ANTHEMPolic BATESDOB: [facility] y Number: [id number], [id number] Repository [place] [address]Nns: ve Date:0882-67-30TX [phone]~330-[address] () [address]HU: 02/04/2018 Secondary NOT GIVENUNK [place] Insurance:SELF PAY [facility] Effective Repository Date:2018-02-04 02/04/2018 JACK Ceballos Primary JACK [place] [id number] Insurance:ANTHEMPolic BATESDOB: [facility] y Number: [id number], [id number] Repository [place] [address]Dmp: ve Date:6668-32-87XW [phone]~330-[address] () [address]CZ: 02/04/2018 Secondary NOT GIVENUNK [place] Insurance:SELF PAY [facility] Number: Effective Repository Date:2018-02-04 02/04/2018 JACK Ceballos Primary JACK [place] [id number] Insurance:ANTHEMPolic BATESDOB: [facility] y Number: [id number], [id number] Repository [place] [address]Ark: ve Date:1203-45-95HZ [phone]~330-[address] () [address]UP: 02/04/2018 Secondary NOT GIVENUNK [place] Insurance:SELF PAY [facility] Number: Effective Repository Date:2018-02-04 02/04/2018 JACK Ceballos Primary JACK [place] [id number] Insurance:ANTHEMPolic BATESDOB: [facility] y Number: [id number], [id number] Repository [place] [address]Gvu: ve Date:0337-97-31ZH [phone]~330-[address] () [address]VO: 02/04/2018 Secondary NOT GIVENUNK [place] Insurance:SELF PAY [facility] Number: Effective Repository Date:2018-02-04 12/29/2017 JACK Ceballos Primary JACK Ceballos Kari [id number] Insurance:ANTHEMPolic BATESDOB: [facility] y Number: [id number], [id number] Repository [place] [address]Pzh: ve Date:4768-70-47QA [phone]~330-[address] () [address]RD: 12/29/2017 Secondary NOT GIVENUNK [place] Insurance:SELF PAY [facility] Number: Effective Repository Date:2017-12-29 12/27/2017 JACK Ceballos Primary JACK Ceballos Kari [id number] Insurance:ANTHEMPolic BATESDOB: [facility] y Number: [id number], [id number] Repository [place] [address]Udc: ve Date:1460-93-86KB [phone]~330-[address] () [address]DM: 12/27/2017 Secondary NOT GIVENUNK [place] Insurance:SELF PAY [facility] Number: Effective Repository Date:2017-12-27
== END 2018-12-02 15:53 | disposition home or self-care (01) ==
PROVIDERS: Emergency Provider Emergency Medicine; Family Provider Family Medicine; PCP Family Medicine
DX: M25.562 Pain in left knee (principal); M25.561 Pain in right knee; I10 Essential (primary) hypertension; Z72.0 Tobacco use
CPT/HCPCS: 73562; 99282

== ENCOUNTER 2019-05-08 23:14 | Inpatient (IN) | payer MEDICAID, SELFPAY ==
[2019-05-08 23:14] VITALS: BP 134/93; PULSE 119; RESP 16; TEMP 36.6; O2SAT 98; BMI 21.7
--- NOTE | 2019-05-08 23:32 | ED.VISSUMM ---
- ER Visit Summary Date of Service: 05/08/19 Chief Complaint: Rash, abdominal distention History of Present Illness: The patient is a 48 M who presents with a rash. He noticed this about a week ago. He is concerned it may be due to low platelets. He also has noticed that his abdomen has become more distended. He does not really have pain. He also has had occasional nausea and vomiting dry heaving over the past week and occasional watery stools. He has noticed increased jaundice. He does have a history of alcoholism, cirrhosis, upper GI bleed suspected to be due to esophageal varices. Physical Examination: Heart rate 119 vitals otherwise normal Moist mucous membranes Heart is regular tachycardia Lungs are clear The abdomen is soft distended and tympanitic Jaundice and scleral icterus Petechial rash Alert Test Results: [] Emergency Department Course and Treatment: [] Treatment Plan: [] Disposition: [] Impression: [] This note was generated with [employer] dictation software. It may contain incorrect words, spelling, and punctuation that were not noted in review of the chart prior to signing ED Disposition - Plan for ED Patient: Referrals: Osorio Hastings DO [Primary Care Provider] -
[2019-05-08] MEDS: 0.9% Normal Saline 1,000 ML 999 ML IV (23:45)
[2019-05-08 23:48] LABS: Absolute Lymphocyte Count 0.86 X10^3/ul (0.83-4.51); Absolute Neutrophil Count 7.4 X10^3/uL (2.0-7.7); Basophil# 0.04 X10^3/uL; Basophil% 0.4 % (0-1); Eosinophil# 0.13 X10^3/uL; Eosinophils% 1.4 % (0-5); Hematocrit 33.8 % (40-54); Hemoglobin 11.7 g/dl (13.0-16.5); Lymphocyte # 0.86 X10^3/ul (4.0); Lymphocyte % 9.1 % (19-41); Mean Corp Hgb Conc 34.6 g/gl (32-36); Mean Corpuscular Volume 98.3 fL (80-94); Mean Platelet Vol. 9.9 fl (6.2-12.0); Monocyte# 0.85 X10^3/uL; Neutrophil # 7.43 X10^3/uL (2.7-7.7); Neutrophil % 78.3 % (47-70); Platelet Count 109 K/mm3 (150-450); RBC Distribution Width SD 60.2 fl (35.1-43.9); Red Blood Count 3.44 M/mm3 (4.6-6.2); White Blood Count 9.5 K/mm3 (4.4-11.0)
[2019-05-08 23:53] LABS: POSITIVE COUNT NO; POSITIVE DIFFERENTIAL NO; POSITIVE MORPHOLOGY NO
[2019-05-08 23:55] LABS: International Normalized Ratio 1.9; Prothrombin Time (Protime)PT. 21.5 SECONDS (11.7-14.9)
[2019-05-09] VITALS (10 sets, daily range): BP systolic 116–153; BP diastolic 75–103; PULSE 77–110; RESP 14–20; TEMP 36.8–37.1; O2SAT 96–100; BMI 21.8
[2019-05-09] LABS: Anion Gap 10 (5-15); BUN 11 mg/dL (7-18); BUN/Creat Ratio 8.7 RATIO (10-20); Calcium,Total 8.1 mg/dL (8.5-10.1); Chloride 105 mmol/L (98-107); Creatinine, Serum 1.27 mg/dL (0.70-1.30); EST Glomerular Filtration Rate 65 mL/min (>60); Est Glom Filt Rate - Afr Amer 78 mL/min (>60); Estimated Creatinine Clearance 76.94 ml/min; Glucose 127 mg/dL (74-106); Sodium Level 133 mmol/L (136-145)
[2019-05-09 00:28] LABS: AST(SGOT) 192 U/L (15-37); Alanine Aminotransfer ALT/SGPT 58 U/L (16-61); Alkaline Phosphatase 492 U/L (45-117); Bilirubin, Direct 25.74 mg/dL (0.00-0.30)
--- NOTE | 2019-05-09 00:31 | ED.RN ---
lab called with critical lab bilirubin 33. Dr. Zafar made aware no new orders at this time
--- NOTE | 2019-05-09 00:36 | CT_ITS ---
HISTORY: JAUNDICE, RASH TO UPPER BODY, LIVER CIRRHOSIS, ALCOHOLIC, HTN-UNCONTROLLED TECHNIQUE: Helically acquired images were obtained of the abdomen and pelvis following the intravenous administration of 100ML ml of Isovue 370 Iodinated contrast. 2D reformats. No oral contrast was administered. A radiation dose optimization technique was used for this scan. COMPARISON: February 05, 2016 FINDINGS: # of images incl. paperwork: 428 LUNG BASES: Trace dependent basilar atelectasis, right greater than left CT abdomen: Bones are unremarkable. The gallbladder is distended with many small calcified stones. The degree of distention is greater than the previous study. There may be several more stones than on the previous study. No calcified choledocholithiasis is seen.. The liver is severely cirrhotic. Many varices remain, but are better demonstrated on the current study due to the use of intravenous contrast. Varices are also present around the distal esophagus within the thorax. Varices are present around the gastroesophageal junction. Some retroperitoneal varices are present likely due to a spontaneous splenorenal shunt. The Spleen, pancreas, and adrenal glands, are normal. Nonobstructing left nephroliths. The right kidney is normal. No hydronephrosis or ureteric stones. The aorta is diseased with calcific atherosclerotic plaque, but without aneurysm or dissection. CT pelvis: Abdominal and pelvic ascites is present. The prostate gland is not enlarged. The appendix is normal with hyperdense material within its lumen, possibly old contrast. Series 2 image 79. The bladder is decompressed. There appears to be bowel wall thickening throughout the colon including into the sigmoid CT/Abdomen/Pelvis W IV Cont ONLY IMPRESSION: Severe cirrhosis with varices. Ascites. Bowel wall thickening suspected within the colon and perhaps several loops of small bowel. Distended gallbladder with gallstones raises the possibility of acute cholecystitis. The gallbladder and the gallstones had a similar appearance on the previous study of January 2018, however, the gallbladder wasn't quite as distended previously. Left nephroliths without hydronephrosis Individualized dose optimization techniques were used for this CT. at 0120 Reported and signed by: Chris Heard MD Electronically Signed: Chris Heard MD at 1:19 EDT Tel , Service support ,
--- NOTE | 2019-05-09 02:11 | PCM.HP.STD ---
Problem List (1) Acute cholecystitis Status: Suspected (2) Obstructive jaundice Status: Suspected (3) Thrombocytopenia Status: Chronic (4) Esophageal varices Status: Chronic (5) Alcoholism Status: Chronic (6) Depression Status: Chronic (7) Hypertension Status: Chronic History of Present Illness Date of Admission: 05/09/19 Chief Complaint: Skin rash, abdominal distention, yellow discoloration of the eyes and skin. The patient is a 48 year old M with past medical history as mentioned above presented to the emergency room because of skin rash, abdominal distention and yellow discoloration of his eyes and skin. Patient mentioned that he has been having slowly increasing abdominal distention over the past week, got worse since yesterday, associated with nausea and occasional vomiting and without aggravating or relieving factors. Around the same time, he started having skin rash that first started on his arms, then went to up to his chest and minimally to his legs which is not itching. Since yesterday, he started noticing that his skin and eyes are more yellow and he mentioned that this may be was for a longer time but he does not have a good light at home. He denied abdominal pain, hemoptysis, hematochezia, melena or diarrhea. He denied fever or chills. He denied right upper quadrant abdominal pain. He denied chest pain or shortness of breath. Patient mentioned that he is having hand tremors and he attributed it to alcohol withdrawal and his last drink was today morning. He had a history of alcoholic liver cirrhosis, portal hypertension and extensive gastroesophageal, perigastric, splenorenal and retroperitoneal varices and he has been on nadolol only. He had history of alcohol abuse and he continued to drink alcohol but he stated that he is trying to cut back and currently drinking 2-3 beers daily. He had history of GI bleed secondary to bleeding esophageal varices. In the emergency department, patient was afebrile, slightly tachycardic, blood pressure was stable, pulse ox was maintained on room air. Routine blood work was remarkable for hemoglobin of 11.7 g/dL, platelet count of 109,000, sodium of 133 and potassium of 3. LFT revealed extremely high total and direct bilirubin, elevated AST and alkaline phosphatase, normal ALT. His INR is 1.9. CT scan abdomen and pelvis with IV contrast revealed severe cirrhosis varices, ascites, distended gallbladder with gallstones, possible acute cholecystitis. He is being admitted for obstructive jaundice and probable acute cholecystitis as well as acute alcohol withdrawal. Past Medical History Past Medical History (Chronic Problems): Chronic Problems Thrombocytopenia (Chronic) Esophageal varices (Chronic) Alcoholism (Chronic) Depression (Chronic) Hypertension (Chronic) Allergies No Known Allergies Allergy (Verified 05/08/19 23:16) Home Medications: Ambulatory Orders Medication Instructions Recorded Multivitamins,Ther W-Minerals 1 tablet PO DAILY 08/13/14 [Multivitamin With Minerals] Chlorthalidone 25 mg PO DAILY 05/09/19 Ferrous Sulfate 325 mg PO DAILY 05/09/19 Nadolol 80 mg PO DAILY 05/09/19 Prednisone 10 mg PO PRN PRN 05/09/19 Surgical History: - - Right and left wrist surgery secondary to fracture Psychiatric History: Depression Lives: Alone Smoking Status: Current every day smoker Tobacco Use: Cigarettes Alcohol: Heavy Drugs: None - *Family History Maternal History Items: - - brain aneurysm Paternal History Items: Hypertension, - - alcoholism Sibling History Items: No pertinent history Review of Systems Constitutional: Reports: Anorexia, Weakness. Denies: Chills, Fever Eyes: Denies: Blurred vision, Double vision, Drainage, Vision Change HEENT: Denies: Difficulty Hearing, Ear Pain, Eye Pain, Nasal Congestion, Sore Throat Cardiovascular: Denies: Chest Pain, Chest Pressure, Chest Tightness, Heaviness, Light Headedness, Palpitations, Syncope Respiratory: Denies: Cough, Pleuritic Pain, Shortness of Breath, Sputum production, Wheezing Gastrointestinal: Reports: Nausea, Vomiting. Denies: Abdominal Pain, Constipation, Diarrhea, Hematemesis, Hematochezia, Melena Genitourinary: Denies: Dysuria, Frequency, Hematuria Musculoskeletal: Denies: Arm Pain, Back Pain, Foot Pain Skin: Reports: Jaundice. Denies: Dryness, Rash Neurological: Denies: Balance problems, Double vision, Change in Speech, Headaches, Incoordination, Numbness, Tingling Psychiatric: Denies: Anxiety, Depression Endocrine: Denies: Change in Body Habitus, Polydipsia, Polyuria VTE Information - Inpt Only VTE Present on Admission: No VTE Mechan Device Prophylaxis: SCD's VTE Pharm Prophylaxis ordered?: No Patient Problems: Active and Suspected Problems Acute cholecystitis (Suspected) Obstructive jaundice (Suspected) - Physical Exam General: Alert, Oriented x3, Cooperative, No apparent distress, - - Extremely deep jaundice. Yellow discoloration of the sclera as well as skin. HEENT: Atraumatic, PERRLA, EOMI, Normocephalic Oral: Moist Mucosa, No Gingival or Mucosal Lesions/ Ulcerations Neck: Supple, No JVD, Negative Carotid Bruits, Trachea Midline, Thyroid Normal Size and Texture Lungs: Clear to auscultation, Normal air movement, No rhonchi, No wheeze, No rales, Diminished Cardiovascular: Regular rate, Regular Rhythm, Normal S1, Normal S2, No murmurs Abdomen: Bowel Sounds Present, Soft, Non-Distended, No Hepato-splenomegaly, Distended, - - Ascites. Negative Pandey sign. Extremities: No cyanosis, No edema, Clubbing, - - Finger clubbing. Skin: No rashes - He has telangiectatic skin rash involving both upper extremities, chest and back. Lymphatic: No Cervical, Supraclavicular, or Inguinal Adenopathy Neurological: Cranial nerves II-XII grossly intact, Motor Exam 5/5 strength throughout, - - Flapping tremor, asterixis. Psych/Mental Status: Normal Affect, Appropriate, Alert and oriented to time, place, person, mood and affect Vital Signs Temp Pulse Resp BP Pulse Ox 98 F 99 14 140/91 H 98 05/08/19 23:14 05/09/19 01:27 05/09/19 01:27 05/09/19 01:27 05/09/19 01:27 Oxygen Delivery Method Room Air Weight: 165 lb Body Mass Index (BMI) 21.7 Laboratory Tests Past 24 Hrs 05/08/19 05/08/19 05/08/19 23:39 23:39 23:39 WBC 9.5 RBC 3.44 L Hgb 11.7 L Hct 33.8 L MCV 98.3 H MCH 34.0 H MCHC 34.6 RDW 17.0 H RDW Differential 60.2 H Plt Count 109 L MPV 9.9 Immature Gran % (Auto) 1.800 H Neut % (Auto) 78.3 H Lymph % (Auto) 9.1 L [place] % (Auto) 9.0 Eos % (Auto) 1.4 Baso % (Auto) 0.4 Absolute Neuts (auto) 7.4 Absolute Lymphs (auto) 0.86 Total Counted Not Reportable PT 21.5 H INR 1.9 Sodium Potassium Chloride Carbon Dioxide Anion Gap BUN Creatinine Estim Creat Clear Calc Est GFR (MDRD) Af Amer Est GFR (MDRD) Non-Af BUN/Creatinine Ratio Glucose Calcium Total Bilirubin 30.00 H* Direct Bilirubin 25.74 H AST 192 H ALT 58 Alkaline Phosphatase 492 H Total Protein TNP Albumin 2.0 L 05/08/19 23:39 WBC RBC Hgb Hct MCV MCH MCHC RDW RDW Differential Plt Count MPV Immature Gran % (Auto) Neut % (Auto) Lymph % (Auto) [place] % (Auto) Eos % (Auto) Baso % (Auto) Absolute Neuts (auto) Absolute Lymphs (auto) Total Counted PT INR Sodium 133 L Potassium 3.0 L Chloride 105 Carbon Dioxide 18.0 L Anion Gap 10 BUN 11 Creatinine 1.27 Estim Creat Clear Calc 76.94 Est GFR (MDRD) Af Amer 78 Est GFR (MDRD) Non-Af 65 BUN/Creatinine Ratio 8.7 L Glucose 127 H Calcium 8.1 L Total Bilirubin Direct Bilirubin AST ALT Alkaline Phosphatase Total Protein Albumin Clinical Impression(s) from Imaging Studies Abdomen/Pelvis CT 05/09/19 00:36 IMPRESSION: Severe cirrhosis with varices. Ascites. Bowel wall thickening suspected within the colon and perhaps several loops of small bowel. Distended gallbladder with gallstones raises the possibility of acute cholecystitis. The gallbladder and the gallstones had a similar appearance on the previous study of January 2018, however, the gallbladder wasn't quite as distended previously. Left nephroliths without hydronephrosis Individualized dose optimization techniques were used for this CT. at 0120 Reported and signed by: Chris Heard MD Electronically Signed: Chris Heard MD at 1:19 EDT Tel , Service support , Assessment/Plan This is a 48-year-old male patient presented to the emergency room because of skin rash, abdominal distention and yellow discoloration of the eyes and skin and he was found to have highly elevated total and direct bilirubin consistent with direct hyperbilirubinemia and he is being admitted for suspected obstructive jaundice and probable acute cholecystitis as well as acute alcohol withdrawal. #1 suspected obstructive jaundice/direct hyperbilirubinemia: Total bilirubin is 30, direct bilirubin is 25.7. Both AST and alkaline phosphatase are chronically elevated. ALT is normal. Patient denies any abdominal pain, right upper quadrant abdominal pain or tenderness. CT scan abdomen and pelvis with IV contrast reviewed as above, revealed distended gallbladder with gallstones, possible acute cholecystitis. Vital signs are stable, slightly tachycardic, afebrile. He has no leukocytosis. Dr. Mccullough was contacted by ER physician and he agreed to see the patient in consultation. Plan: Admit to [facility] floor, telemetry, keep on clear liquids, IV fluids, IV morphine PRN, IV antiemetics, check serum lipase, ammonia, repeat CBC and CMP this morning at 10 AM, general surgery consult, MRCP, PT OT evaluation and treatment. #2 probable acute cholecystitis: Based on CT scan findings. He is afebrile, no leukocytosis. Patient denies any abdominal pain. Plan: Keep on clear liquids, IV fluids, IV morphine PRN, general surgery consult as above. MRCP as above. The patient will be at very high risk for surgery and if needed, percutaneous cholecystostomy would be the option. #3 skin rash/telangiectasia: This is probably because of thrombocytopenia. At this time, no active bleeding. Plan to monitor. #4 hyponatremia/hypokalemia: Probably due to chlorthalidone. Plan: IV fluids with D5 normal saline, replace potassium with IV potassium chloride, check serum magnesium, repeat CMP at 10 AM this morning. #5 coagulopathy: Secondary to chronic liver disease. Pro time is 21, INR is 1.9. At this time, no evidence of active bleeding. Plan to repeat INR at 10 AM this morning. #6 acute alcohol withdrawal: Patient continue to drink alcohol but cutting back. Last drink was today morning. He does have hand tremors, slight tachycardic. Plan: CIWA protocol, IV fluids with D5 normal saline, IV thiamine, IV folic acid, p.o. multivitamins, Ativan as needed. #7 alcoholic liver cirrhosis/extensive varices: At this time, no evidence of active bleeding. Plan to continue nadolol, start lactulose twice daily, check serum ammonia. #8 hypertension: Blood pressure stable, continue chlorthalidone. Secondary to #9 chronic anemia/chronic thrombocytopenia: History of GI bleed and chronic liver disease. At this time, hemoglobin and hematocrit are stable. Plan to continue iron supplement, repeat CBC at 10 AM this morning. #10 DVT prophylaxis: SCDs. This note was generated with [employer] software. It may contain incorrect words, spelling, and punctuation that were not noted in checking the note before signing. Code Visit Inpatient E&M: 47728 Init Hosp L3
[2019-05-09 02:44] LABS: Lipase 373 U/L (73-393)
[2019-05-09 02:47] LABS: Magnesium 2.4 mg/dL (1.6-2.6)
[2019-05-09] MEDS: Dextrose 5%/0.9% NaCl 1,000 ML 100 ML IV ×3 (03:41→22:02)
[2019-05-09] MEDS: Potassium Chloride 10mEq/100mL 10 MEQ/100 ML IV.SOLN. 100 MEQ IV BOLUS ×2 (03:42→04:43)
[2019-05-09] MEDS: LORazepam 2 MG/ML Syringe IV ×3 (03:55→14:08)
[2019-05-09 04:12] LABS: Absolute Lymphocyte Count 0.26 X10^3/ul (0.83-4.51); Absolute Neutrophil Count 7.3 X10^3/uL (2.0-7.7); Basophil# 0.06 X10^3/uL; Basophil% 0.6 % (0-1); Eosinophil# 0.12 X10^3/uL; Eosinophils% 1.3 % (0-5); Hematocrit 33.6 % (40-54); Lymphocyte # 0.26 X10^3/ul (4.0); Lymphocyte % 2.8 % (19-41); Mean Corp Hgb Conc 35.7 g/gl (32-36); Mean Corpuscular Hgb 33.9 pg (27.0-32.0); Mean Corpuscular Volume 94.9 fL (80-94); Mean Platelet Vol. 10.8 fl (6.2-12.0); Monocyte# 1.46 X10^3/uL; Monocyte% 15.5 % (0-10); Neutrophil # 7.31 X10^3/uL (2.7-7.7); Neutrophil % 77.8 % (47-70); Platelet Count 120 K/mm3 (150-450); RBC Distribution Width CV 18.4 % (11.6-14.6); RBC Distribution Width SD 60.9 fl (35.1-43.9); Red Blood Count 3.54 M/mm3 (4.6-6.2); White Blood Count 9.4 K/mm3 (4.4-11.0)
[2019-05-09 04:18] LABS: International Normalized Ratio 1.9; Prothrombin Time (Protime)PT. 21.4 SECONDS (11.7-14.9)
[2019-05-09 04:20] LABS: Differential Indicated SCAN CRITERIA MET; POSITIVE COUNT YES; POSITIVE DIFFERENTIAL YES; POSITIVE MORPHOLOGY YES
[2019-05-09 04:50] LABS: AST(SGOT) 193 U/L (15-37); Alanine Aminotransfer ALT/SGPT 60 U/L (16-61); Albumin, Serum 2.1 g/dL (3.2-5.0); Alkaline Phosphatase 518 U/L (45-117); Anion Gap 13 (5-15); BUN 10 mg/dL (7-18); BUN/Creat Ratio 8.7 RATIO (10-20); Calcium,Total 8.2 mg/dL (8.5-10.1); Chloride 106 mmol/L (98-107); Creatinine, Serum 1.15 mg/dL (0.70-1.30); EST Glomerular Filtration Rate 73 mL/min (>60); Est Glom Filt Rate - Afr Amer 88 mL/min (>60); Estimated Creatinine Clearance 85.07 ml/min; Glucose 104 mg/dL (74-106); Potassium 2.9 mmol/L (3.5-5.1); Sodium Level 137 mmol/L (136-145)
[2019-05-09 05:12] LABS: Differential Comment SCANNED; Hypochromasia 2+; Macrocytosis 2+; Platelet Estimate ADEQUATE (ADEQ); Target Cells 3+
--- NOTE | 2019-05-09 07:24 | CON.PCM_ITS ---
Reason for Consult Date of Consultation: 05/09/19 Reason for Consultation: acute on chronic liver failure History of Present Illness: The patient is a 48 year old M with a long-standing history of alcohol abuse. prior to relocating to the [facility], the patient was treated for what sounds like cirrhosis and bleeding esophageal varices while in [place] the patient has a previous history of admission to [facility] in 2012 for epigastric pain and upper GI bleeding felt to be a variceal bleed at which point in time he was admitted with a diagnosis of acute blood loss anemia, thrombocytopenia cholelithiasis esophageal varices alcohol tobacco abuse, cirrhosis and alcohol withdrawal area did he underwent banding of esophageal varices at that hospitalization. I had seen him for previous admission on February 04, 2018 with a diagnosis of hematemesis secondary vomiting, alcohol withdrawal with impending delirium tremens. His platelet count at that point in time was 25,000 and his bilirubin was 3.3. due to the fact that he had no further vomiting and had a stable hemoglobin and was thrombocytopenic we did not perform endoscopy at that hospitalization. CT scan at that time demonstrated a nodular liver, cholelithiasis, a mildly enlarged spleen and no ascites. the patient returns to [facility] now. He is noted increasing yellow skin and yellow discoloration the eyes for at least the past 10 days.he states his last episode of significant alcohol use was approximately 2 weeks previously. He states to me and to the admitting physician is currently only drinking 2-3 beers per day so we does not go into DTs. The nurse states he told her he is drinking 10-12 beers per day. He presents emergency department with these complaints. The patient's bilirubina significantly elevated at 29. His AST is mildly elevated at 193 and alkaline phosphatase is 218. His ammonia level is 42. His albumin level is 2.1.his platelet count is 120. His INR is elevated at 1.9. CT scan of the abdomen and pelvis was obtained. This demonstrates a distended gallbladder with gallstones. No noted choledocholithiasis were seen. The liver was severely cirrhotic. Esophageal varices were noted retroperitoneal varices were noted and ascites is noted.spleen seems somewhat enlarged me. Compared to the previous CT scan. I was consulted for assumed to be probable acute cholecystitis. The patient notes abdominal distention but denies right upper quadrant pain or biliary colic type symptoms. Past Medical History Past Medical History (Chronic Problems): Chronic Problems Thrombocytopenia (Chronic) Esophageal varices (Chronic) Alcoholism (Chronic) Depression (Chronic) Hypertension (Chronic) Allergies No Known Allergies Allergy (Verified 05/08/19 23:16) Home Medications: Ambulatory Orders Medication Instructions Recorded Multivitamins,Ther W-Minerals 1 tablet PO DAILY 08/13/14 [Multivitamin With Minerals] Chlorthalidone 25 mg PO DAILY 05/09/19 Ferrous Sulfate 325 mg PO DAILY 05/09/19 Nadolol 80 mg PO DAILY 05/09/19 Prednisone 10 mg PO PRN PRN 05/09/19 Surgical History: no surgical history, - - Right and left wrist surgery secondary to fracture Psychiatric History: Depression Lives: Alone Smoking Status: Current every day smoker Tobacco Use: Cigarettes Alcohol: Heavy Drugs: None - *Family History Maternal History Items: - - brain aneurysm Paternal History Items: Hypertension, - - alcoholism Sibling History Items: No pertinent history Review of Systems Constitutional: Reports: Anorexia, Malaise, Weakness, Fatigue HEENT: Denies: Head Aches, Sinus Congestion, Sinus Drainage Cardiovascular: Denies: Chest Pain, Palpitations Respiratory: Denies: Cough, Shortness of breath at rest, Sputum production Gastrointestinal: Reports: Nausea, Vomiting. Denies: Abdominal Pain, Hematemesis, Hematochezia Genitourinary: Denies: Dysuria Musculoskeletal: Denies: Joint Pain, Joint Tenderness Skin: Reports: Jaundice Neurological: Denies: Numbness, Tingling, Focal weakness Psychiatric: Denies: Anxiety, Depression, Homicidal Ideations, Suicidal Ideations Patient Problems: Active and Suspected Problems Acute cholecystitis (Suspected) Obstructive jaundice (Suspected) Objective: the patient is severely jaundiced - Physical Exam General: Alert, Oriented x3, Cooperative Neck: Supple, No JVD, Negative Carotid Bruits Lungs: Clear to auscultation, Normal air movement Cardiovascular: Regular rate, No murmurs, No rub noted, No Gallop Abdomen: Bowel Sounds Present, Soft, Non Tender, Distended, - - patient with shifting dullness consistent with ascites. Specifically no right upper quadrant tenderness. No Pandey sign Vital Signs Temp Pulse Resp BP Pulse Ox 98.4 F 97 20 H 144/93 H 100 05/09/19 02:36 05/09/19 03:53 05/09/19 02:36 05/09/19 02:36 05/09/19 02:36 Oxygen Delivery Method Room Air Weight: 74.933 kg Body Mass Index (BMI) 21.8 Intake and Output for Last 24 Hours 05/07/19 05/08/19 05/09/19 23:59 23:59 23:59 Intake Total 600 / 600 Balance 600 / 600 Laboratory Tests Past 24 Hrs 05/08/19 05/08/19 05/08/19 23:39 23:39 23:39 WBC 9.5 RBC 3.44 L Hgb 11.7 L Hct 33.8 L MCV 98.3 H MCH 34.0 H MCHC 34.6 RDW 17.0 H RDW Differential 60.2 H Plt Count 109 L MPV 9.9 Immature Gran % (Auto) 1.800 H Neut % (Auto) 78.3 H Lymph % (Auto) 9.1 L [place] % (Auto) 9.0 Eos % (Auto) 1.4 Baso % (Auto) 0.4 Absolute Neuts (auto) 7.4 Absolute Lymphs (auto) 0.86 Total Counted Not Reportable Differential Comment Diff Path Review Platelet Estimate Hypochromasia Macrocytosis Target Cells PT 21.5 H INR 1.9 Sodium Potassium Chloride Carbon Dioxide Anion Gap BUN Creatinine Estim Creat Clear Calc Est GFR (MDRD) Af Amer Est GFR (MDRD) Non-Af BUN/Creatinine Ratio Glucose Calcium Magnesium Total Bilirubin 30.00 H* Direct Bilirubin 25.74 H AST 192 H ALT 58 Alkaline Phosphatase 492 H Ammonia Total Protein TNP Albumin 2.0 L Lipase Ethyl Alcohol 05/08/19 05/08/19 05/08/19 23:39 23:39 23:39 WBC RBC Hgb Hct MCV MCH MCHC RDW RDW Differential Plt Count MPV Immature Gran % (Auto) Neut % (Auto) Lymph % (Auto) [place] % (Auto) Eos % (Auto) Baso % (Auto) Absolute Neuts (auto) Absolute Lymphs (auto) Total Counted Differential Comment Diff Path Review Platelet Estimate Hypochromasia Macrocytosis Target Cells PT INR Sodium 133 L Potassium 3.0 L Chloride 105 Carbon Dioxide 18.0 L Anion Gap 10 BUN 11 Creatinine 1.27 Estim Creat Clear Calc 76.94 Est GFR (MDRD) Af Amer 78 Est GFR (MDRD) Non-Af 65 BUN/Creatinine Ratio 8.7 L Glucose 127 H Calcium 8.1 L Magnesium 2.4 Total Bilirubin Direct Bilirubin AST ALT Alkaline Phosphatase Ammonia Total Protein Albumin Lipase 373 Ethyl Alcohol 05/09/19 05/09/19 05/09/19 03:35 03:35 03:35 WBC 9.4 RBC 3.54 L Hgb 12.0 L Hct 33.6 L MCV 94.9 H MCH 33.9 H MCHC 35.7 RDW 18.4 H RDW Differential 60.9 H Plt Count 120 L MPV 10.8 Immature Gran % (Auto) 2.000 H Neut % (Auto) 77.8 H Lymph % (Auto) 2.8 L [place] % (Auto) 15.5 H Eos % (Auto) 1.3 Baso % (Auto) 0.6 Absolute Neuts (auto) 7.3 Absolute Lymphs (auto) 0.26 L Total Counted Not Reportable Differential Comment SCANNED Diff Path Review May foll Platelet Estimate ADEQUATE Hypochromasia 2+ Macrocytosis 2+ Target Cells 3+ PT INR Sodium Potassium Chloride Carbon Dioxide Anion Gap BUN Creatinine Estim Creat Clear Calc Est GFR (MDRD) Af Amer Est GFR (MDRD) Non-Af BUN/Creatinine Ratio Glucose Calcium Magnesium Total Bilirubin Direct Bilirubin AST ALT Alkaline Phosphatase Ammonia 42.0 H Total Protein Albumin Lipase Ethyl Alcohol 13.0 05/09/19 05/09/19 03:35 03:35 WBC RBC Hgb Hct MCV MCH MCHC RDW RDW Differential Plt Count MPV Immature Gran % (Auto) Neut % (Auto) Lymph % (Auto) [place] % (Auto) Eos % (Auto) Baso % (Auto) Absolute Neuts (auto) Absolute Lymphs (auto) Total Counted Differential Comment Diff Path Review Platelet Estimate Hypochromasia Macrocytosis Target Cells PT 21.4 H INR 1.9 Sodium 137 Potassium 2.9 L Chloride 106 Carbon Dioxide 18.0 L Anion Gap 13 BUN 10 Creatinine 1.15 Estim Creat Clear Calc 85.07 Est GFR (MDRD) Af Amer 88 Est GFR (MDRD) Non-Af 73 BUN/Creatinine Ratio 8.7 L Glucose 104 Calcium 8.2 L Magnesium Total Bilirubin 29.70 H* Direct Bilirubin AST 193 H ALT 60 Alkaline Phosphatase 518 H Ammonia Total Protein TNP Albumin 2.1 L Lipase Ethyl Alcohol Assessment/Plan acute on chronic liver failure - asymptomatic cholelithiasis the patient does not clinically have cholecystitis or biliary colic symptoms. The patient's symptoms are consistent with acute on chronic liver failure secondary to cirrhosis and alcohol abuse. the patient has a known history of esophageal varices of blood. He has varices on CT scan including retroperitoneal varices and likely varices around the area of the gallbladder. 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 Any operative intervention would have a high risk of complication a high risk of . I discussed with the patient his best course is stopping drinking. He will then need to be monitored closely for impending alcohol withdrawal/delirium tremens. At this point the patient is not having any signs of variceal bleeding. A paracentesis could be considered to see if this improved him symptomatically but this would not improve his liver function. Hopefully with stopping alcohol, his liver function will recover to his previous baseline. If not, liver transplantation would be his best option. The patient needs to be watched carefully for IV fluid balance and urine output to ensure he does not start entering into hepatorenal syndrome picture. The patient's cholelithiasis are radiolucent. I see no stones in the common duct. I therefore agree that he does not necessarily need to undergo MRCP and less he has appropriate or biliary colic/common duct stone symptoms.
[2019-05-09] MEDS: Multivitamins,Ther W-Minerals Tablet 1 TABLET PO (07:54)
[2019-05-09] MEDS: Ferrous Sulfate 325 MG Tablet PO (07:54)
[2019-05-09] MEDS: 0.9% NaCl Peripheral Flush Adult/Peds IV ×2 (08:42→14:08)
[2019-05-09] MEDS: Chlorthalidone 50 MG Tablet 25 MG PO (08:57)
[2019-05-09] MEDS: Nadolol 40 MG Tablet 80 MG PO (08:58)
[2019-05-09] MEDS: Lactulose 20 GM/30 ML UDC PO ×2 (08:59→22:00)
--- NOTE | 2019-05-09 10:28 | CASEMGMT ---
RN CM Assessment Presentation: Acute ETOH withdrawal. Cholecystitis, severe cirrhosis with varices. Intro role of CM and purpose of RN CM assessment to patient in room. Demographics, PCP and Pharmacy verified. Pt reticent with answers, giving short responses. RN CM spoke with physician re: Palliative consult. PCP: Dr. Osorio Hastings. Pt last saw physician in November. Appointment made for hospital follow up on May 14, 2019 @ 1010. Appt placed in worklist. Specialists: Dr. Lazo [facility] Insurance: [employer] Prescription Benefit: yes LNOK: FatherJorge Living Arrangements: Lives independently. Denies needing assistance with ADL's prior to admission. Pt is not forthcoming with information. Transportation: pt did not answer. DME: denies any DME HHC: none MIN Referral: ETOH abuse, MNI El updated. Patient DC goals: Home DC PLAN: Home on dc. F/U appointment made with PCP. Physician to evaluate for Palliative Care Referral. Heather BARROSN RN ACM
--- NOTE | 2019-05-09 10:59 | CASEMGMT ---
Social Work Note SW received referral for Alcohol use. SW met with pt, introduced self and role at [facility]. Pt is alert and orientated x3, appears tired and states that he is hungry. Pt states that he has a history of depression and alcohol use. Pt states that he used to be in counseling but denied current counseling. Pt states that he has decreased his use of alcohol and denied the need for counseling/rehab services at this time. Pt denied any additional needs or concerns at this time. Kyleigh Oh LENS MOLD SETTER, [employer] GRADER
--- NOTE | 2019-05-09 18:25 | PCM.HOSP.N ---
Hospitalist Note Patient was seen and examined today, I discussed his case with general surgery, general surgery does not believe the patient has obstructive jaundice and does not feel that the patient needs an MRCP-after going over the chart I also do not think an MRCP is needed. I feel the patient at this time has liver failure, I talked with the patient this afternoon and asked him whether he would consent to have hospice and palliative care talk with him and he said yes, he also stated he did not want to be resuscitated if he stop breathing or if his heart stopped. I have changed his CODE STATUS to a DNR comfort care, we will continue to provide medications as needed for any alcohol withdrawal or any pain the patient may have. I contacted hospice and they will see him tomorrow. Patient states he has no close relatives or family members that he would want contacted.
[2019-05-09] MEDS: LORazepam 1 MG Tablet 2 MG PO (22:00)
[2019-05-10 02:40] VITALS: BP 126/92; PULSE 78; RESP 18; TEMP 36.8; O2SAT 99
[2019-05-10] MEDS: LORazepam 1 MG Tablet 2 MG PO (02:41)
[2019-05-10 06:00] VITALS: BP 125/67; PULSE 78; RESP 18; TEMP 36.8; O2SAT 97
[2019-05-10 06:32] LABS: Hematocrit 33.9 % (40-54)
[2019-05-10 06:37] LABS: International Normalized Ratio 2.1; Prothrombin Time (Protime)PT. 23.1 SECONDS (11.7-14.9)
[2019-05-10 07:15] LABS: AST(SGOT) 150 U/L (15-37); Alanine Aminotransfer ALT/SGPT 53 U/L (16-61); Albumin, Serum 1.8 g/dL (3.2-5.0); Alkaline Phosphatase 421 U/L (45-117); Bilirubin, Direct 22.45 mg/dL (0.00-0.30); Globulin 4.5 g/dL (2.2-4.2); Protein, Total 6.3 g/dL (6.4-8.2)
--- NOTE | 2019-05-10 08:29 | PCM.PN.SRG ---
Patient Problems: Active and Suspected Problems Acute cholecystitis (Suspected) Obstructive jaundice (Suspected) Subjective: still feeling distended - Physical Exam General: - - jaundiced Cardiovascular: Regular rate, No murmurs Abdomen: Bowel Sounds Present, Soft, Distended Vital Signs Temp Pulse Resp BP Pulse Ox 98.2 F 78 18 125/67 H 97 05/10/19 06:00 05/10/19 06:00 05/10/19 06:00 05/10/19 06:00 05/10/19 06:00 Oxygen Delivery Method Room Air Weight: 74.933 kg Body Mass Index (BMI) 21.8 Intake and Output for Last 24 Hours 05/08/19 05/09/19 05/10/19 23:59 23:59 23:59 Intake Total 2043 / 2831 1493 / 1493 Output Total 300 / 300 Balance 1743 / 2531 1493 / 1493 Laboratory Tests Past 24 Hrs 05/10/19 05/10/19 05/10/19 05:53 05:53 05:53 Hgb 12.0 L Hct 33.9 L PT 23.1 H INR 2.1 Total Bilirubin 25.70 H* Direct Bilirubin 22.45 H AST 150 H ALT 53 Alkaline Phosphatase 421 H Total Protein 6.3 L Albumin 1.8 L Globulin 4.5 H Medical Necessity - Tobacco Use Smoking Status: Current every day smoker Tobacco Use: Cigarettes Assessment/Plan acute on chronic liver failure - asymptomatic cholelithiasis the patient does not clinically have cholecystitis or biliary colic symptoms. The patient's symptoms are consistent with acute on chronic liver failure secondary to cirrhosis and alcohol abuse. the patient has a known history of esophageal varices of blood. He has varices on CT scan including retroperitoneal varices and likely varices around the area of the gallbladder. 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 Any operative intervention would have a high risk of complication a high risk of . I discussed with the patient his best course is stopping drinking. He will then need to be monitored closely for impending alcohol withdrawal/delirium tremens. At this point the patient is not having any signs of variceal bleeding. A paracentesis could be considered to see if this improve his abdominal discomfort symptomatically but this would not improve his liver function. Hopefully with stopping alcohol, his liver function will recover to his previous baseline. If not, liver transplantation would be his best option. The patient needs to be watched carefully for IV fluid balance and urine output to ensure he does not start entering into hepatorenal syndrome picture. The patient's cholelithiasis are radiolucent. I see no stones in the common duct. I therefore agree that he does not necessarily need to undergo MRCP and less he has appropriate or biliary colic/common duct stone symptoms.
[2019-05-10 08:33] VITALS: BP 113/75; PULSE 74; RESP 20; TEMP 36.8; O2SAT 97
[2019-05-10] MEDS: Ferrous Sulfate 325 MG Tablet PO (08:37)
[2019-05-10] MEDS: Chlorthalidone 50 MG Tablet 25 MG PO (08:38)
[2019-05-10] MEDS: Multivitamins,Ther W-Minerals Tablet 1 TABLET PO (08:38)
[2019-05-10] MEDS: Lactulose 20 GM/30 ML UDC PO ×2 (08:38→20:20)
[2019-05-10] MEDS: Nadolol 40 MG Tablet 80 MG PO (08:38)
[2019-05-10] MEDS: Dextrose 5%/0.9% NaCl 1,000 ML 100 ML IV ×2 (08:46→20:20)
[2019-05-10] MEDS: LORazepam 2 MG/ML Syringe IV (11:30)
[2019-05-10 11:44] VITALS: BP 107/60; PULSE 76; RESP 18; TEMP 36.7; O2SAT 96
[2019-05-10 15:15] VITALS: BP 110/68; PULSE 73; RESP 16; TEMP 36.8; O2SAT 94
[2019-05-10 20:15] VITALS: BP 114/79; PULSE 77; RESP 18; TEMP 37.2; O2SAT 96
[2019-05-11] MEDS: 0.9% NaCl Peripheral Flush Adult/Peds IV (02:51)
[2019-05-11 03:15] VITALS: BP 116/73; PULSE 77; RESP 16; TEMP 37.1; O2SAT 97
[2019-05-11] MEDS: Dextrose 5%/0.9% NaCl 1,000 ML 100 ML IV ×2 (06:33→17:05)
[2019-05-11 08:13] LABS: Hematocrit 33.4 % (40-54); Hemoglobin 11.7 g/dl (13.0-16.5)
[2019-05-11 08:22] VITALS: BP 130/78; PULSE 79; RESP 18; TEMP 36.9; O2SAT 96
[2019-05-11] MEDS: Ferrous Sulfate 325 MG Tablet PO (08:24)
[2019-05-11] MEDS: Nadolol 40 MG Tablet 80 MG PO (08:24)
[2019-05-11] MEDS: Lactulose 20 GM/30 ML UDC PO ×2 (08:24→20:47)
[2019-05-11] MEDS: Multivitamins,Ther W-Minerals Tablet 1 TABLET PO (08:24)
[2019-05-11 08:30] LABS: International Normalized Ratio 2.1; Prothrombin Time (Protime)PT. 23.2 SECONDS (11.7-14.9)
--- NOTE | 2019-05-11 08:40 | PCM.PROGNOTE ---
Patient Problems: Active and Suspected Problems Acute cholecystitis (Suspected) Obstructive jaundice (Suspected) Subjective: The date of this note is 05/10/2019: Patient was seen and examined today, he is confused today, his family members did come in and I talked with his father and his sister. Patient has had a drinking problem for many years and had quit intermittently but resumed drinking. Hospice is going to meet with the patient's family and the patient on Sunday, general surgery had recommended a paracentesis for the patient, I discussed this with the patient's family and my feeling is that the peritoneal fluid will reaccumulate within a short period of time and I really do not see the need for the paracentesis at this time as the patient is not having any respiratory issues and he is a comfort care. 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 Case management social work associate will have to see the patient on Sunday and discuss this with the family. - Physical Exam General: Well developed, Confused, Lethargic HEENT: Atraumatic, PERRLA, EOMI, Normocephalic, - - Scleral icterus is noted Oral: Moist Mucosa Neck: Supple, Trachea Midline, Thyroid Normal Size and Texture Lungs: Clear to auscultation, Normal air movement, No rhonchi, No wheeze, No rales, Diminished, Rales Cardiovascular: Regular rate, Regular Rhythm, Normal S1, Normal S2, No murmurs, No Ectopic Activity, PMI Normal, No rub noted, No Gallop Abdomen: Bowel Sounds Present, Soft, Non Tender, Distended Extremities: No edema, Capillary Refill Less than 3 Seconds, Clubbing - Clubbing of the patient's fingers was noted to be present Skin: No rashes, No breakdown, - - Patient is icteric Musculoskeletal: No Tenderness to Palpation of Joints or Extremities Neurological: Cranial nerves II-XII grossly intact, Neuro grossly intact, Sensory exam intact to light touch and pain Psych/Mental Status: - - he is lethargic and confused, he appears restless Vital Signs Temp Pulse Resp BP Pulse Ox 98.4 F 79 18 130/78 H 96 05/11/19 08:22 05/11/19 08:22 05/11/19 08:22 05/11/19 08:22 05/11/19 08:22 Oxygen Delivery Method Room Air Weight: 74.933 kg Body Mass Index (BMI) 21.8 Intake and Output for Last 24 Hours 05/09/19 05/10/19 05/11/19 23:59 23:59 23:59 Intake Total 2043 / 2831 3729 / 3729 525 / 525 Output Total 300 / 300 100 / 100 Balance 1743 / 2531 3629 / 3629 525 / 525 Laboratory Tests Past 24 Hrs 05/11/19 05/11/19 05/11/19 07:41 07:41 07:41 Hgb 11.7 L Hct 33.4 L PT 23.2 H INR 2.1 Total Bilirubin Pending Direct Bilirubin Pending AST Pending ALT Pending Alkaline Phosphatase Pending Total Protein Pending Albumin Pending Medical Necessity - Tobacco Use Smoking Status: Current every day smoker Tobacco Use: Cigarettes Assessment/Plan #1 acute liver failure secondary to alcoholic hepatitis with cirrhosis-supportive care will be given to the patient, patient's family is aware that the patient's medical status is poor and he may not recover from the liver failure. #2 alcoholic hepatitis-labs will be monitored #3 chronic alcoholism #4 history of esophageal varices with episodes of hemorrhage in the past-patient will be put on a PPI Prognosis at this time is very poor. Code Visit Inpatient E&M: 15828 Subs Hosp L2
[2019-05-11 08:57] LABS: AST(SGOT) 143 U/L (15-37); Alanine Aminotransfer ALT/SGPT 55 U/L (16-61); Albumin, Serum 1.7 g/dL (3.2-5.0); Alkaline Phosphatase 373 U/L (45-117); Bilirubin, Direct 22.26 mg/dL (0.00-0.30); Globulin 4.5 g/dL (2.2-4.2); Protein, Total 6.2 g/dL (6.4-8.2)
[2019-05-11] MEDS: Morphine 2 MG/ML Syringe 1 MG IV (13:56)
[2019-05-11] MEDS: LORazepam 1 MG Tablet 2 MG PO (13:56)
[2019-05-11 14:02] VITALS: BP 110/76; PULSE 74; RESP 18; TEMP 36.3; O2SAT 95
[2019-05-11 15:16] VITALS: BP 108/68; PULSE 80; RESP 18; TEMP 36.8; O2SAT 96
--- NOTE | 2019-05-11 17:58 | PN_ITS ---
Patient Problems: Active and Suspected Problems Acute cholecystitis (Suspected) Obstructive jaundice (Suspected) Subjective: Patient was seen and examined today, he remains confused, ammonia level is slightly higher than the last ammonia level that was checked during this hospitalization, patient continues to have stools on present dose of lactulose. Patient's bilirubin has declined slightly, I will recheck the patient's renal functions and liver functions tomorrow. Family members will meet with hospice tomorrow morning at the hospital. - Physical Exam General: No apparent distress, Well developed, Lethargic HEENT: Atraumatic, PERRLA, EOMI, Normocephalic, - - Icteric sclera Oral: Moist Mucosa Neck: Supple, No Nuchal Rigidity, Trachea Midline, Thyroid Normal Size and Texture Lungs: Clear to auscultation, Normal air movement, No rhonchi, No wheeze, No rales, Diminished, Rales Cardiovascular: Regular rate, Regular Rhythm, Normal S1, Normal S2, No murmurs, No Ectopic Activity Abdomen: Bowel Sounds Present, Soft, Non Tender, Distended Extremities: No edema, Capillary Refill Less than 3 Seconds, Clubbing - Marked clubbing of the distal fingers are noted bilaterally Skin: No rashes, No breakdown, - - Patient is icteric Musculoskeletal: No Tenderness to Palpation of Joints or Extremities Neurological: Cranial nerves II-XII grossly intact, Neuro grossly intact, - - Patient is lethargic and confused Psych/Mental Status: - - Patient is confused, he is directable but is nonverbal Vital Signs Temp Pulse Resp BP Pulse Ox 98.2 F 80 18 108/68 96 05/11/19 15:16 05/11/19 15:16 05/11/19 15:16 05/11/19 15:16 05/11/19 15:16 Oxygen Delivery Method Room Air Weight: 74.933 kg Body Mass Index (BMI) 21.8 Intake and Output for Last 24 Hours 05/09/19 05/10/19 05/11/19 23:59 23:59 23:59 Intake Total 2043 / 2831 3729 / 3729 2641 / 2641 Output Total 300 / 300 100 / 100 Balance 1743 / 2531 3629 / 3629 2641 / 2641 Laboratory Tests Past 24 Hrs 05/11/19 05/11/19 05/11/19 07:41 07:41 07:41 Hgb 11.7 L Hct 33.4 L PT 23.2 H INR 2.1 Total Bilirubin 25.00 H* Direct Bilirubin 22.26 H AST 143 H ALT 55 Alkaline Phosphatase 373 H Ammonia Total Protein 6.2 L Albumin 1.7 L Globulin 4.5 H 05/11/19 09:26 Hgb Hct PT INR Total Bilirubin Direct Bilirubin AST ALT Alkaline Phosphatase Ammonia 57.0 H Total Protein Albumin Globulin Medical Necessity - Tobacco Use Smoking Status: Current every day smoker Tobacco Use: Cigarettes Assessment/Plan #1 acute liver failure secondary to alcoholic hepatitis with cirrhosis-s upportive care will be given to the patient, patient's family is aware that the patient's medical status is poor and he may not recover from the liver failure. Patient's family is going to meet with hospice tomorrow at the hospital #2 alcoholic hepatitis-labs will be monitored #3 chronic alcoholism #4 history of esophageal varices with episodes of hemorrhage in the past-patient will remain on a PPI, hemoglobins have been stable this admission #5 elevated ammonia level-it is unknown whether the patient's alcohol withdrawal is causing encephalopathy or the elevated ammonia level, he will continue on lactulose, repeat ammonia level in the morning #6 alcohol withdrawal- patient continues to be monitored Prognosis at this time is very poor. Code Visit Inpatient E&M: 54442 Subs Hosp L2
[2019-05-11 20:45] VITALS: BP 118/79; PULSE 73; RESP 20; TEMP 37.1; O2SAT 95
[2019-05-12] MEDS: Dextrose 5%/0.9% NaCl 1,000 ML 100 ML IV ×3 (02:54→23:52)
[2019-05-12] MEDS: LORazepam 1 MG Tablet 2 MG PO (02:54)
--- NOTE | 2019-05-12 03:07 | NURSING ---
This RN went into patients room, CASH GRAIN FARMER assisting patient to the BSC at this time. Patient noted as having labored breathing. Patient stated he didn't feel well. VS checked and assessment completed. PRN ativan given. This RN noted that patient had dried blood on the inside of his lips. Mouth care given, old dried blood present. Per patient he did not bite his tongue or lips. Will continue to monitor.
[2019-05-12 03:09] VITALS: BP 121/79; PULSE 72; RESP 22; TEMP 36.9; O2SAT 97
[2019-05-12 07:52] LABS: ALB/GLOB Ratio 0.4 RATIO (0.9-2.4); AST(SGOT) 123 U/L (15-37); Alanine Aminotransfer ALT/SGPT 52 U/L (16-61); Albumin, Serum 1.7 g/dL (3.2-5.0); Alkaline Phosphatase 335 U/L (45-117); Anion Gap 10 (5-15); BUN 11 mg/dL (7-18); BUN/Creat Ratio 7.3 RATIO (10-20); Calcium,Total 8.1 mg/dL (8.5-10.1); Chloride 114 mmol/L (98-107); EST Glomerular Filtration Rate 53 mL/min (>60); Est Glom Filt Rate - Afr Amer 65 mL/min (>60); Estimated Creatinine Clearance 65.22 ml/min; Globulin 4.4 g/dL (2.2-4.2); Glucose 131 mg/dL (74-106); Potassium 2.5 mmol/L (3.5-5.1); Protein, Total 6.1 g/dL (6.4-8.2); Sodium Level 142 mmol/L (136-145)
--- NOTE | 2019-05-12 08:23 | PN_ITS ---
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 On assessment of acute liver failure secondary to alcoholic cirrhosis made admitted to the regular nursing floor for further management 05/12/2019: Patient seen appears ill looking diagnostic data significant for significant electrolyte abnormalities with potassium of 2.5. Bilirubin remains elevated at 27. Objective: GENERAL: Frail and ill-looking HEENT: Atraumatic; moist oral mucosa EYES; Anicteric, jaundiced NECK; supple, normal thyroid, RESPIRATORY: Diminished to auscultation bilaterally, CARDIOVASCULAR: Regular S1 S2, GI: non-tender, normoactive bowel sounds, : No Renal angle tenderness; EXTREMITIES: No edema, no cyanosis. MUSCULOSKELETAL: muscle waisting NEURO: Awake; no lateralizing signs. SKIN: Jaundiced PSYCH; flat affect Vitals/I&O's: Vital Signs Temp Pulse Resp BP Pulse Ox 98.5 F 72 22 H 121/79 H 97 05/12/19 03:09 05/12/19 03:09 05/12/19 03:09 05/12/19 03:09 05/12/19 03:09 Oxygen Delivery Method Room Air Weight: 74.933 kg Body Mass Index (BMI) 21.8 Intake and Output for Last 24 Hours 05/10/19 05/11/19 05/12/19 23:59 23:59 23:59 Intake Total 3729 / 3729 3321 / 3321 754 / 754 Output Total 100 / 100 Balance 3629 / 3629 3321 / 3321 754 / 754 Laboratory Results 05/11/19 07:41: PT 23.2 H, INR 2.1 05/11/19 07:41: Total Bilirubin 25.00 H*, Direct Bilirubin 22.26 H, AST 143 H, ALT 55, Alkaline Phosphatase 373 H, Total Protein 6.2 L, Albumin 1.7 L, Globulin 4.5 H 05/11/19 09:26: Ammonia 57.0 H 05/12/19 05:20: Sodium 142, Potassium 2.5 L*, Chloride 114 H, Carbon Dioxide 18.0 L, Anion Gap 10, BUN 11, Creatinine 1.50 H, Estim Creat Clear Calc 65.22, Est GFR (MDRD) Af Amer 65, Est GFR (MDRD) Non-Af 53 L, BUN/Creatinine Ratio 7.3 L, Glucose 131 H, Calcium 8.1 L, Total Bilirubin 27.50 H*, AST 123 H, ALT 52, Alkaline Phosphatase 335 H, Total Protein 6.1 L, Albumin 1.7 L, Globulin 4.4 H, Albumin/Globulin Ratio 0.4 L 05/12/19 05:20: Ammonia 126.0 H Current Medications Ferrous Sulfate (Ferrous Sulfate) 325 mg PO DAILYCM ON LICENSE OF [facility] Last Admin: 05/11/19 08:24 Dose: 325 mg Documented by: Dextrose/Sodium Chloride (Dextrose 5%/0.9% Nacl) 1,000 mls @ 100 mls/hr IV .Q10H ON LICENSE OF [facility] Last Admin: 05/12/19 02:54 Dose: 100 mls/hr Documented by: Thiamine HCl 100 mg/ Sodium (Chloride) 51 mls @ 200 mls/hr IV DAILY ON LICENSE OF [facility] Last Admin: 05/11/19 09:49 Dose: 200 mls/hr Documented by: Folic Acid 1 mg/ Sodium (Chloride) 50.2 mls @ 200 mls/hr IV DAILY ON LICENSE OF [facility] Last Admin: 05/11/19 10:30 Dose: 200 mls/hr Documented by: Pantoprazole Sodium 40 mg/ (Sodium Chloride) 110 mls @ 330 mls/hr IV Q24 ON LICENSE OF [facility] Last Admin: 05/11/19 08:29 Dose: 330 mls/hr Documented by: Lactulose (Chronulac, Cephulac) 20 gm PO BID ON LICENSE OF [facility] Last Admin: 05/11/19 20:47 Dose: 20 gm Documented by: Lorazepam (Ativan) 2 mg PO Q2H PRN PRN; Protocol PRN Reason: CIWA score > 8 but <15 Last Admin: 05/12/19 02:54 Dose: 2 mg Documented by: Lorazepam (Ativan) 2 mg PO UD PRN; Protocol PRN Reason: CIWA score >/=15. Lorazepam (Ativan) 2 mg IV Q2H PRN PRN; Protocol PRN Reason: CIWA score > 8 but <15 Last Admin: 05/10/19 11:30 Dose: 2 mg Documented by: Lorazepam (Ativan) 2 mg IV UD PRN; Protocol PRN Reason: CIWA score >/=15. Morphine Sulfate () 1 mg IV Q3H PRN PRN PRN Reason: Severe pain (7-10/10) Last Admin: 05/11/19 13:56 Dose: 1 mg Documented by: Multivitamins/Minerals ([facility]ivitamin With Minerals) [facility] Last Admin: 05/11/19 08:24 Dose: 1 tablet Documented by: Nadolol (Corgard) 80 mg PO DAILY ON LICENSE OF [facility] Last Admin: 05/11/19 08:24 Dose: 80 mg Documented by: Ondansetron HCl (Zofran) 4 mg IV Q8H PRN PRN PRN Reason: NAUSEA/VOMITING Sodium Chloride () 10 - 40 ml IV UD PRN PRN Reason: SALINE FLUSH Last Admin: 05/11/19 02:51 Dose: 10 ml Documented by: Medical Necessity - Tobacco Use Smoking Status: Current every day smoker Tobacco Use: Cigarettes Assessment/Plan Patient is a 48-year-old gentleman with history of chronic alcohol abuse with complications including cirrhosis of the liver with portal hypertension, 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 On assessment of acute liver failure secondary to alcoholic cirrhosis made admitted to the regular nursing floor for further management 1. Acute alcoholic hepatitis: Admitted to the regular nursing floor where patient is being treated. Patient condition appears to be improving. Pain documentation from the day prior plans underway for hospice to meet with family 2. Acute hepatic encephalopathy: Patient is on lactulose 3. Alcoholic cirrhosis of the liver with complications including gastroesophageal perigastric and splenorenal and retroperitoneal varices; patient has previous history of GI bleed currently on PPI 4. Hypokalemia being aggressively replaced. Ordered magnesium as well 5. Chronic alcohol abuse with acute withdrawal patient is on the pump 6. Chronic alcoholism; counseled on cessation 7. Tobacco dependence counseled on cessation, offered nicotine patch for tobacco cravings 8. Distended gallbladder with gallstones raises the possibility of acute cholecystitis. Patient was seen in consultation by Dr. Mccullough with general surgery patient is deemed to be high surgical risk at this point. His notes and recommendations reviewed we will continue with current conservative management. Active Medications Ferrous Sulfate (Ferrous Sulfate) [facility] Last Admin: 05/11/19 08:24 Dose: 325 mg Documented by: Dextrose/Sodium Chloride (Dextrose 5%/0.9% Nacl) 1,000 mls @ 100 mls/hr IV .Q10H ON LICENSE OF [facility] Last Admin: 05/12/19 02:54 Dose: 100 mls/hr Documented by: Thiamine HCl 100 mg/ Sodium (Chloride) 51 mls @ 200 mls/hr IV DAILY ON LICENSE OF [facility] Last Admin: 05/11/19 09:49 Dose: 200 mls/hr Documented by: Folic Acid 1 mg/ Sodium (Chloride) 50.2 mls @ 200 mls/hr IV DAILY ON LICENSE OF [facility] Last Admin: 05/11/19 10:30 Dose: 200 mls/hr Documented by: Pantoprazole Sodium 40 mg/ (Sodium Chloride) 110 mls @ 330 mls/hr IV Q24 ON LICENSE OF [facility] Last Admin: 05/11/19 08:29 Dose: 330 mls/hr Documented by: Potassium Chloride 10 meq/ N/A 100 mls @ 100 mls/hr IV Q1H ON LICENSE OF [facility] Stop: 05/12/19 12:29 Lactulose (Chronulac, Cephulac) 20 gm PO BID ON LICENSE OF [facility] Last Admin: 05/11/19 20:47 Dose: 20 gm Documented by: Lorazepam (Ativan) 2 mg PO Q2H PRN PRN; Protocol PRN Reason: CIWA score > 8 but <15 Last Admin: 05/12/19 02:54 Dose: 2 mg Documented by: Lorazepam (Ativan) 2 mg PO UD PRN; Protocol PRN Reason: CIWA score >/=15. Lorazepam (Ativan) 2 mg IV Q2H PRN PRN; Protocol PRN Reason: CIWA score > 8 but <15 Last Admin: 05/10/19 11:30 Dose: 2 mg Documented by: Lorazepam (Ativan) 2 mg IV UD PRN; Protocol PRN Reason: CIWA score >/=15. Morphine Sulfate () 1 mg IV Q3H PRN PRN PRN Reason: Severe pain (7-10/10) Last Admin: 05/11/19 13:56 Dose: 1 mg Documented by: Multivitamins/Minerals (Multivitamin With Minerals) [facility] Last Admin: 05/11/19 08:24 Dose: 1 tablet Documented by: Nadolol (Corgard) 80 mg PO DAILY ON LICENSE OF [facility] Last Admin: 05/11/19 08:24 Dose: 80 mg Documented by: Ondansetron HCl (Zofran) 4 mg IV Q8H PRN PRN PRN Reason: NAUSEA/VOMITING Potassium Chloride (K-Dur) 40 meq PO BIDCM SAB[facility]INA Sodium Chloride () 10 - 40 ml IV UD PRN PRN Reason: SALINE FLUSH Last Admin: 05/11/19 02:51 Dose: 10 ml Documented by: Clinical Impression(s) from Imaging Studies Abdomen/Pelvis CT 05/09/19 00:36 IMPRESSION: Severe cirrhosis with varices. Ascites. Bowel wall thickening suspected within the colon and perhaps several loops of small bowel. Distended gallbladder with gallstones raises the possibility of acute cholecystitis. The gallbladder and the gallstones had a similar appearance on the previous study of January 2018, however, the gallbladder wasn't quite as distended previously. Left nephroliths without hydronephrosis Individualized dose optimization techniques were used for this CT. at 0120 Reported and signed by: Chris Heard MD Electronically Signed: Chris Heard MD at 1:19 EDT Tel , Service support , Code Visit Inpatient E&M: 26546 Subs Hosp L3
[2019-05-12] MEDS: Ferrous Sulfate 325 MG Tablet PO (08:39)
[2019-05-12] MEDS: Multivitamins,Ther W-Minerals Tablet 1 TABLET PO (08:39)
[2019-05-12 09:00] VITALS: BP 103/60; PULSE 75; RESP 20; TEMP 37.1; O2SAT 98
[2019-05-12 09:12] VITALS: BP 103/60; PULSE 75; RESP 18; TEMP 37.1; O2SAT 98
[2019-05-12 09:46] LABS: Pathologist Review Reviewed
[2019-05-12 09:51] LABS: Magnesium 2.3 mg/dL (1.6-2.6)
[2019-05-12] MEDS: Lactulose 20 GM/30 ML UDC PO ×2 (11:57→21:10)
[2019-05-12] MEDS: Nadolol 40 MG Tablet 80 MG PO (11:57)
--- NOTE | 2019-05-12 14:32 | NURSING ---
Requested information, H&P, demographics, insurance info, etc faxed to Hospice at this time.
[2019-05-12 14:54] LABS: Anion Gap 10 (5-15); BUN 12 mg/dL (7-18); BUN/Creat Ratio 7.3 RATIO (10-20); Calcium,Total 8.1 mg/dL (8.5-10.1); Chloride 115 mmol/L (98-107); Creatinine, Serum 1.64 mg/dL (0.70-1.30); EST Glomerular Filtration Rate 48 mL/min (>60); Est Glom Filt Rate - Afr Amer 58 mL/min (>60); Estimated Creatinine Clearance 59.65 ml/min; Glucose 123 mg/dL (74-106); Potassium 2.8 mmol/L (3.5-5.1); Sodium Level 144 mmol/L (136-145)
--- NOTE | 2019-05-12 16:03 | CASEMGMT ---
Social Work Note MIN placed a call to [facility] and spoke with Mechelle. Mechelle asked for updated clinicals. MIN informed Mechelle that this worker can fax updated clinicals and that [facility] may be able to answer additional questions regarding pt as they evaluated pt for Hospice. MIN provided [facility] number. MIN faxed updated clinicals to [facility]. Kyleigh Oh ICT BUSINESS ANALYST, DEVELOPMENT ADMINISTRATOR
--- NOTE | 2019-05-12 16:38 | NURSING ---
Spoke with Mechelle from Hospice again, at this time the family is still working on a discharge plan. According to Hospice, after symptoms are managed at the inpatient unit, the patient could possibly stay there in a residential bed, but there would be a $250/day charge. Family unsure if this is a cost they could currently afford, but they will check and notify hospice tomorrow.
[2019-05-12 18:19] VITALS: BP 126/70; PULSE 79; RESP 18; TEMP 36.8; O2SAT 98
[2019-05-12 21:01] VITALS: BP 110/72; PULSE 67; RESP 22; TEMP 36.4; O2SAT 97
[2019-05-13 02:19] VITALS: BP 103/71; PULSE 60; RESP 20; TEMP 36.4; O2SAT 98
[2019-05-13] MEDS: Morphine 2 MG/ML Syringe 1 MG IV (03:01)
[2019-05-13] MEDS: 0.9% NaCl Peripheral Flush Adult/Peds IV ×3 (03:01→21:48)
[2019-05-13 06:15] LABS: Absolute Lymphocyte Count 0.49 X10^3/ul (0.83-4.51); Absolute Neutrophil Count 7.5 X10^3/uL (2.0-7.7); Basophil# 0.02 X10^3/uL; Basophil% 0.2 % (0-1); Eosinophil# 0.12 X10^3/uL; Eosinophils% 1.3 % (0-5); Hematocrit 38.6 % (40-54); Hemoglobin 13.4 g/dl (13.0-16.5); Lymphocyte # 0.49 X10^3/ul (4.0); Lymphocyte % 5.3 % (19-41); Mean Corp Hgb Conc 34.7 g/gl (32-36); Mean Corpuscular Hgb 33.8 pg (27.0-32.0); Mean Corpuscular Volume 97.2 fL (80-94); Monocyte# 0.97 X10^3/uL; Monocyte% 10.5 % (0-10); Neutrophil # 7.48 X10^3/uL (2.7-7.7); Neutrophil % 81.3 % (47-70); Platelet Count 160 K/mm3 (150-450); RBC Distribution Width CV 18.2 % (11.6-14.6); RBC Distribution Width SD 63.1 fl (35.1-43.9); Red Blood Count 3.97 M/mm3 (4.6-6.2); White Blood Count 9.2 K/mm3 (4.4-11.0)
[2019-05-13 06:16] LABS: Differential Indicated SCAN CRITERIA MET; POSITIVE COUNT NO; POSITIVE DIFFERENTIAL YES; POSITIVE MORPHOLOGY NO
[2019-05-13 06:31] LABS: Anion Gap 10 (5-15); BUN 13 mg/dL (7-18); BUN/Creat Ratio 8.3 RATIO (10-20); Calcium,Total 8.1 mg/dL (8.5-10.1); Chloride 116 mmol/L (98-107); Creatinine, Serum 1.56 mg/dL (0.70-1.30); EST Glomerular Filtration Rate 51 mL/min (>60); Est Glom Filt Rate - Afr Amer 62 mL/min (>60); Estimated Creatinine Clearance 62.71 ml/min; Glucose 115 mg/dL (74-106); Magnesium 2.5 mg/dL (1.6-2.6); Sodium Level 145 mmol/L (136-145)
--- NOTE | 2019-05-13 07:21 | PN_ITS ---
Patient Problems: Active and Suspected Problems Acute cholecystitis (Suspected) Obstructive jaundice (Suspected) Subjective: Patient seen remains significantly lethargic. Abdomen significantly distended ordered an ultrasound-guided therapeutic paracentesis Objective: GENERAL: Frail and ill-looking HEENT: Atraumatic; moist oral mucosa EYES; Anicteric, jaundiced NECK; supple, normal thyroid, RESPIRATORY: Diminished to auscultation bilaterally, CARDIOVASCULAR: Regular S1 S2, GI: non-tender, normoactive bowel sounds, markedly distended : No Renal angle tenderness; EXTREMITIES: No edema, no cyanosis. MUSCULOSKELETAL: muscle waisting NEURO: Awake; no lateralizing signs. SKIN: Jaundiced PSYCH; flat affect Vitals/I&O's: Vital Signs Temp Pulse Resp BP Pulse Ox 97.6 F L 60 20 H 103/71 98 05/13/19 02:19 05/13/19 02:19 05/13/19 02:19 05/13/19 02:05/13/19 02:19 Oxygen Delivery Method Room Air Weight: 74.933 kg Body Mass Index (BMI) 21.8 Intake and Output for Last 24 Hours 05/11/19 05/12/19 05/13/19 23:59 23:59 23:59 Intake Total 3321 / 3321 3421 / 3421 692 / 692 Balance 3321 / 3321 3421 / 3421 692 / 692 Laboratory Results 05/09/19 03:35: Diff Path Review Reviewed 05/12/19 05:20: Sodium 142, Potassium 2.5 L*, Chloride 114 H, Carbon Dioxide 18.0 L, Anion Gap 10, BUN 11, Creatinine 1.50 H, Estim Creat Clear Calc 65.22, Est GFR (MDRD) Af Amer 65, Est GFR (MDRD) Non-Af 53 L, BUN/Creatinine Ratio 7.3 L, Glucose 131 H, Calcium 8.1 L, Total Bilirubin 27.50 H*, AST 123 H, ALT 52, Alkaline Phosphatase 335 H, Total Protein 6.1 L, Albumin 1.7 L, Globulin 4.4 H, Albumin/Globulin Ratio 0.4 L 05/12/19 05:20: Magnesium 2.3 05/12/19 14:20: Sodium 144, Potassium 2.8 L, Chloride 115 H, Carbon Dioxide 19.0 L, Anion Gap 10, BUN 12, Creatinine 1.64 H, Estim Creat Clear Calc 59.65, Est GFR (MDRD) Af Amer 58 L, Est GFR (MDRD) Non-Af 48 L, BUN/Creatinine Ratio 7.3 L, Glucose 123 H, Calcium 8.1 L 05/13/19 05:40: WBC 9.2, RBC 3.97 L, Hgb 13.4, Hct 38.6 L, MCV 97.2 H, MCH 33.8 H, MCHC 34.7, RDW 18.2 H, RDW Differential 63.1 H, Plt Count 160, MPV 10.0, Immature Gran % (Auto) 1.400 H, Neut % (Auto) 81.3 H, Lymph % (Auto) 5.3 L, [place] % (Auto) 10.5 H, Eos % (Auto) 1.3, Baso % (Auto) 0.2, Absolute Neuts (auto) 7.5, Absolute Lymphs (auto) 0.49 L, Total Counted Not Reportable 05/13/19 05:40: Sodium 145, Potassium 3.0 L, Chloride 116 H, Carbon Dioxide 19.0 L, Anion Gap 10, BUN 13, Creatinine 1.56 H, Estim Creat Clear Calc 62.71, Est GFR (MDRD) Af Amer 62, Est GFR (MDRD) Non-Af 51 L, BUN/Creatinine Ratio 8.3 L, G lucose 115 H, Calcium 8.1 L, Magnesium 2.5 Current Medications Ferrous Sulfate (Ferrous Sulfate) 325 mg PO DAILYCM [facility] Last Admin: 05/12/19 08:39 Dose: 325 mg Documented by: Dextrose/Sodium Chloride (Dextrose 5%/0.9% Nacl) 1,000 mls @ 100 mls/hr IV .Q10H [facility] Last Admin: 05/12/19 23:52 Dose: 100 mls/hr Documented by: Thiamine HCl 100 mg/ Sodium (Chloride) 51 mls @ 200 mls/hr IV DAILY [facility] Last Admin: 05/12/19 09:40 Dose: 200 mls/hr Documented by: Folic Acid 1 mg/ Sodium (Chloride) 50.2 mls @ 200 mls/hr IV DAILY [facility] Last Admin: 05/12/19 09:06 Dose: 200 mls/hr Documented by: Pantoprazole Sodium 40 mg/ (Sodium Chloride) 110 mls @ 330 mls/hr IV Q24 [facility] Last Admin: 05/12/19 10:27 Dose: 330 mls/hr Documented by: Potassium Chloride 10 meq/ N/A 100 mls @ 100 mls/hr IV Q1H [facility] Stop: 05/13/19 11:29 Lactulose (Chronulac, Cephulac) 20 gm PO BID [facility] Last Admin: 05/12/19 21:10 Dose: 20 gm Documented by: Lorazepam (Ativan) 2 mg PO Q2H PRN PRN; Protocol PRN Reason: CIWA score > 8 but <15 Last Admin: 05/12/19 02:54 Dose: 2 mg Documented by: Lorazepam (Ativan) 2 mg PO UD PRN; Protocol PRN Reason: CIWA score >/=15. Lorazepam (Ativan) 2 mg IV Q2H PRN PRN; Protocol PRN Reason: CIWA score > 8 but <15 Last Admin: 05/10/19 11:30 Dose: 2 mg Documented by: Lorazepam (Ativan) 2 mg IV UD PRN; Protocol PRN Reason: CIWA score >/=15. Morphine Sulfate () 1 mg IV Q3H PRN PRN PRN Reason: Severe pain (7-10/10) Last Admin: 05/13/19 03:01 Dose: 1 mg Documented by: Multivitamins/Minerals ([facility]erals) [facility] Admin: 05/12/19 08:39 Dose: 1 tablet Documented by: Nadolol (Corgard) 80 mg PO DAILY [facility] Last Admin: 05/12/19 11:57 Dose: 80 mg Documented by: Nutritional Formula (Lactose Free) (Ensure Enlive) 120 ml PO 4X/DAY [facility] Last Admin: 05/12/19 21:10 Dose: Not Given Documented by: Ondansetron HCl (Zofran) 4 mg IV Q8H PRN PRN PRN Reason: NAUSEA/VOMITING Potassium Chloride (K-Dur) 40 meq PO BIDCM [facility] Last Admin: 05/12/19 18:47 Dose: 40 meq Documented by: Potassium Chloride (K-Dur) 40 meq PO BIDCM [facility] Sodium Chloride () 10 - 40 ml IV UD PRN PRN Reason: SALINE FLUSH Last Admin: 05/13/19 03:01 Dose: 10 ml Documented by: Medical Necessity - Tobacco Use Smoking Status: Current every day smoker Tobacco Use: Cigarettes Assessment/Plan Patient is a 48-year-old gentleman with history of chronic alcohol abuse with complications including cirrhosis of the liver with portal hypertension, 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 On assessment of acute liver failure secondary to alcoholic cirrhosis made admitted to the regular nursing floor for further management 1. Acute alcoholic hepatitis: Admitted to the regular nursing floor where patient is being treated. Patient overall condition remains guarded. Plan is for patient undergo therapeutic paracentesis 2. Acute hepatic encephalopathy: Patient is on lactulose 3. Alcoholic cirrhosis of the liver with complications including gastroesophageal perigastric and splenorenal and retroperitoneal varices; patient has previous history of GI bleed currently on PPI also ordered therapeutic paracentesis for symptomatic relief 4. Hypokalemia being aggressively replaced. Ordered magnesium as well 5. Chronic alcohol abuse with acute withdrawal patient is on the pump 6. Chronic alcoholism; counseled on cessation 7. Tobacco dependence counseled on cessation, offered nicotine patch for tobacco cravings 8. Distended gallbladder with gallstones raises the possibility of acute cholecystitis. Patient was seen in consultation by Dr. Mccullough with general surgery patient is deemed to be high surgical risk at this point. His notes and recommendations reviewed we will continue with current conservative management. Advanced directive:. Had an extensive discussion with patient's father as well as his sister regarding his prognosis and way forward. We also discussed options moving forward including palliative care/hospice. It is a wish of the family to proceed with palliative care. Total time spent on this discussion 25 minutes Code Visit Inpatient E&M: 30833 Subs Hosp L2 Procedures: 14173 Advncd Care Plan 30 Min
[2019-05-13] MEDS: Lactulose 20 GM/30 ML UDC PO ×2 (08:16→21:39)
[2019-05-13] MEDS: Nadolol 40 MG Tablet 80 MG PO (08:16)
[2019-05-13] MEDS: Ferrous Sulfate 325 MG Tablet PO (08:16)
[2019-05-13] MEDS: Multivitamins,Ther W-Minerals Tablet 1 TABLET PO (08:16)
[2019-05-13 08:17] VITALS: BP 114/79; PULSE 65; RESP 20; TEMP 37.1; O2SAT 99
--- NOTE | 2019-05-13 08:30 | US_ITS ---
PROCEDURE: Ultrasound guided paracentesis. DATE OF EXAMINATION: May 13, 2019.. INDICATION: Male, 48 years old. Ascites. PHYSICIAN: Sacha Cho M.D. TECHNIQUE: The risks, benefits, and alternatives to the procedure were explained to the patient. The specific risks of bleeding, infection, and damage to bowel were detailed and accepted. Witnessed informed consent was obtained. The abdomen was ultrasonographically surveyed. An appropriate pocket of fluid was identified at the right lower quadrant. The skin were cleaned and prepped in the usual sterile fashion. Using ultrasound guidance, the peritoneal cavity was accessed with a 5-Persian paracentesis needle/catheter system. The trocar was removed. A total of 650 ml of allen-colored fluid were removed from the peritoneal cavity. The catheter was removed and a sterile dressing was applied. The procedure was well tolerated. US/Paracentesis with US IMPRESSION: Ultrasound guided paracentesis. Electronically Signed: Sacha Cho, at 8:12 EDT , Service support ,
--- NOTE | 2019-05-13 10:02 | CASEMGMT ---
Social Work Note Charge Nurse updated this worker that Mechelle at [facility] updated her last night that they don't accept pt's Medicaid insurance ([place]) and pt's father mentioned pt going to SNF in [place] as this is where pt's father lives. MIN placed a call to [facility] and spoke with RANDI Reis. RANDI Reis states pt's father had called them last night as well and he was directed to talk to social media analyst in regards to SNF. Smiley states that [facility] does take pt's insurance but again states pt's father is really wanting pt to be in [place] and she isn't sure if pt will qualify for inpatient hospice. If pt was to go to SNF with [facility]osp[facility] pt would be financially responsible for room and board and [facility] would pay for medical care. MIN placed a call to pt's father Jorge. Jorge confirms that he would like pt to go to SNF in [place]. SW informed Jorge that this worker did look up SNF in [place] that take pt's insurance and no SNF in [place] are coming up. MIN explained there are SNF in [facility] that accept pt's insurance. MIN explained that SNF would have to accept pt and then pre-cert would need to be obtained. MIN explained there has to be a skillable need for pt's insurance to pay SNF. Jorge again states he would like a SNF in [place] and this worker again explained that initial search for [facility] SNFs that take pt's insurance are 0 at this time but informed Jorge that this worker will call SNF in [place] and confirm if they take pt's insurance or not. Jorge states first preference for SNF is in [place], second is [facility], third is [facility] and fourth is [place]. MIN placed a call to [facility] [place] and spoke with Yennifer in admissions. Yennifer states she doesn't think they are in network with [facility] but would be willing to review referral and check on out of network benefits. SW faxed referral to [facility] [place]. MIN placed a call to [facility] and spoke with Massiel in admissions. Per Massiel they have been able to get one time contracts before with [facility] and would be willing to review referral. MIN faxed referral to [facility]. MIN waiting for responses from facilities. Plan: SNF pending acceptance and pre-cert Kyleigh Oh ENGINEERING TECHNICIAN PARKING, TILE PICKER
[2019-05-13] MEDS: Dextrose 5%/0.9% NaCl 1,000 ML 100 ML IV (11:04)
--- NOTE | 2019-05-13 11:11 | CASEMGMT ---
Social Work Note MIN received call from Massiel at [facility] stating she will try for a one time contract with [place]. Massiel states the number to call for prior authorization is not on pt's insurance card. MIN informed Massiel that pt is presently confused and may not be able to tell this worker if he has his insurance card present. MIN placed a call to and spoke with Priscilla. Priscilla states she utilizes Meera at [facility] for their prior authorizations and provided number [phone]. MIN placed a call to [facility] and per [facility] Sharma is the RN who will handle pt's preauthorization and provided number [phone]. MIN placed a call to Massiel at [facility] and provided number for RANDI Sharma. MIN informed Massiel that pt is medically cleared for discharge once pre-cert is obtained. Edith states she will submit for one time contract. Plan: [facility] pending one time contract Kyleigh Oh CHEMICAL PROCESSING TECHNICIAN, COSTUME SHOP MANAGER
--- NOTE | 2019-05-13 12:05 | CASEMGMT ---
Social Work Note SW received message from RN KIMANI Pratt that pt's daughter is requesting to speak to this worker. Pt's daughter Sofiya is not listed on pt's demographics. SW met with pt, pt is confused but does have periods of being alert and orientated. Pt confirms that he has a daughter named Sofiya and gave this worker permission to call his daughter [phone]. SW placed a call to Sofiya, left message, asking for Sofiya to give this worker a call back when she is able to do so. Kyleigh Oh DEOILING MACHINE OPERATOR, ROUTER OPERATOR RADIAL
--- NOTE | 2019-05-13 13:48 | CASEMGMT ---
Social Work Note SW received call from pt's sister Sofiya (Sofiya is pt's sister not daughter). Sofiya asked about getting pt to SNF with Hosp[facility]. SW informed Sofiya that this worker was updated that [facility]'t [facility] pt's insurance and if pt goes to SNF with [facility] then pt would be finally responsible for Room and Board. Sofiya states that [facility]ospice had told her father Jorge that they would pay for pt to go to SNF. SW explained that [facility]ospice will pay for medical treatment at SNF but will not pay for room and Board at SNF. 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 SW informed Sofiya that this worker spoke with pt's father Jorge and Jorge gave this worker permission to try any SNF in [place] and that this worker had called [facility] [place] and [facility]. [facility] [place] was checking out of network benefits and [facility] was checking on a one time contract with pt's insurance. Sofiya states that if she had to choose between [facility] [place] and [facility] she would like [facility] [place] as she has been to [facility] before and she didn't like it there. SW informed Sofiya that this worker did get permission from pt's father Jorge to try any SNF in [place] that would be willing to accept pt and his insurance. Sofiya asked about SNF in [facility]. MIN informed Sofiya that per Jorge the first choice was SNF in [place] and that [facility] was second and third choice so this worker was waiting to hear from SNF in [place]. Sofiya informed this worker to not try any more SNF in [place] and to check with [facility] in [place] or [facility] in [place]. SW informed Sofiya that this worker will try those SNF. Sofiya states that she was also informed by [facility] that pt couldn't go to SNF outside [facility] due to his Medicaid. SW explained that pt can go to any SNF that accept's his insurance pending acceptance and pre-cert and that if pt decides to permanently reside in different community health, pt will need to set up services with that county's [facility]. SW informed Sofiya that this worker will call [facility] and [facility]. MIN placed a call to [facility] and spoke with Tamara. Tamara states they are not in network with pt's insurance. MIN placed a call to [facility] and spoke with Lesly in admissions. Per Lesly she believes [facility] is in network with pt's insurance and she is willing to review referral. SW faxed referral to [facility]. MIN spoke with Mike SOTOMAYOR who states pt's medicaid should be able to picker and sorter load and unload room & board at SNF if pt goes to SNF with [facility]. Mike Rodriguez states [facility] will likely change pt to straight Medicaid but not sure if pt will get switched to straight Medicaid during the month or if pt will need to wait till beginning of month. MIN was encouraged to call Janis Parson at [facility]. MIN placed a call to Janis Parson at [facility], left message, to return this worker's call. SW waiting for call back. MIN attempted to call Lissette at [facility], Tabby not available and message left for Tabby to return this worker's phone call. SW to continue to follow. Plan: SNF skilled vs. SNF with [facility] Kyleigh Oh REGASIFICATION PLANT OPERATOR, MACHINE CRATER
[2019-05-13 14:05] VITALS: BP 109/70; BP 98/66; PULSE 64; PULSE 68; RESP 18; O2SAT 97
[2019-05-13 14:45] VITALS: BP 107/77; PULSE 73; RESP 20; TEMP 36.6; O2SAT 97
--- NOTE | 2019-05-13 15:46 | CASEMGMT ---
Social Work Note MIN spoke with Janis Parson at [facility]. Per Janis pt's [place] is community Medicaid and should be able to pay for pt to go to SNF with [facility]osp[facility] and pay for room and board for pt. Janis states that the SNF would have to be willing to submit to [place] for Prior Authorization for [place] to pay for Room and Board and that it doesn't necessarily have to be a SNF in network with [place]. Janis states that pt would transition to straight Medicaid eventually while at SNF and then Medicaid would continue to pay for Room and Board at SNF with [facility] Services paying for medical treatment at SNF. MIN placed a call to both Lissette at [facility] and Tamara at [facility] and updated them both on above information. Lissette states she will discuss the information with her business office and may be able to get director script but not sure but will also discuss pt coming with [facility]osp[facility]. Tamara states that she will call RN at [place] to discuss paying for room and board while pt comes to facility on [facility]. MIN placed a call to pt's sister Sofiya and updated her on this information. Sofiya again states that she would prefer for pt to go to SNF with [facility] as long as pt's insurance would pay for room and board. MIN informed Sofiya that it is unlikely pt would be able to go to SNF in [place] as [facility] doesn't accept pt's [place] at this time. MIN informed Sofiya that pt could possibly go to either [facility] or [facility] with [facility]. MIN informed Sofiya that this worker will continue to work on discharge plans for pt. MIN placed a call to Massiel at [facility] and informed her to cancel one time contract for pt. Plan: SNF with [facility]osp[facility] pending prior auth from [place] Kyleigh Oh HOLLOW HANDLE KNIFE ASSEMBLER, IMPREGNATOR AND DRIER
--- NOTE | 2019-05-13 17:15 | RAD_ITS ---
STUDY: X-RAY - ABDOMEN/PELVIS REASON FOR EXAM: Male, 48 years old. Distention TECHNIQUE: Frontal and decubitus COMPARISON: None. FINDINGS: Evaluation is limited due to technical factors. The right hemiabdomen is opacified. Mildly gas-distended bowel loops are present in the left hemiabdomen. Nondependent lucency on the decubitus view appears to be intraluminal. RAD/Abd Decub and/or Erect(Portabl IMPRESSION: Limited evaluation as described above without evidence of obstruction. Opacification of the right hemiabdomen could be due to abdominal fluid. Clinical correlation suggested. Electronically Signed: José Miguel Smith, at 18:27 EDT Tel , Service support ,
[2019-05-13 21:29] VITALS: BP 109/72; PULSE 70; RESP 20; TEMP 36.1; O2SAT 97
[2019-05-13] MEDS: Ondansetron 4 MG/2 ML Vial IV (21:48)
[2019-05-14 02:07] VITALS: BP 120/72; PULSE 74; RESP 20; TEMP 36.3; O2SAT 96
[2019-05-14] MEDS: Dextrose 5%/0.9% NaCl 1,000 ML 100 ML IV (03:08)
[2019-05-14 06:12] LABS: Absolute Lymphocyte Count 0.26 X10^3/ul (0.83-4.51); Absolute Neutrophil Count 7.1 X10^3/uL (2.0-7.7); Anion Gap 10 (5-15); BUN 17 mg/dL (7-18); BUN/Creat Ratio 9.2 RATIO (10-20); Basophil# 0.02 X10^3/uL; Basophil% 0.2 % (0-1); Calcium,Total 7.9 mg/dL (8.5-10.1); Chloride 120 mmol/L (98-107); Creatinine, Serum 1.84 mg/dL (0.70-1.30); EST Glomerular Filtration Rate 42 mL/min (>60); Eosinophil# 0.17 X10^3/uL; Eosinophils% 1.9 % (0-5); Est Glom Filt Rate - Afr Amer 51 mL/min (>60); Estimated Creatinine Clearance 53.17 ml/min; Glucose 114 mg/dL (74-106); Hematocrit 37.9 % (40-54); Hemoglobin 12.8 g/dl (13.0-16.5); Lymphocyte # 0.26 X10^3/ul (4.0); Lymphocyte % 2.9 % (19-41); Mean Corp Hgb Conc 33.8 g/gl (32-36); Mean Corpuscular Hgb 33.5 pg (27.0-32.0); Mean Corpuscular Volume 99.2 fL (80-94); Mean Platelet Vol. 9.9 fl (6.2-12.0); Monocyte# 1.24 X10^3/uL; Monocyte% 13.9 % (0-10); Neutrophil # 7.11 X10^3/uL (2.7-7.7); Neutrophil % 79.8 % (47-70); Platelet Count 136 K/mm3 (150-450); Potassium 3.4 mmol/L (3.5-5.1); RBC Distribution Width CV 18.6 % (11.6-14.6); RBC Distribution Width SD 65.9 fl (35.1-43.9); Red Blood Count 3.82 M/mm3 (4.6-6.2); Sodium Level 148 mmol/L (136-145); White Blood Count 8.9 K/mm3 (4.4-11.0)
[2019-05-14 06:18] LABS: Differential Indicated SCAN CRITERIA MET; POSITIVE COUNT NO; POSITIVE DIFFERENTIAL YES; POSITIVE MORPHOLOGY YES
[2019-05-14 06:31] LABS: Differential Comment SCAN
[2019-05-14 06:32] LABS: Anisocytosis 1+; Macrocytosis 1+; Polychromasia RARE
[2019-05-14 07:49] VITALS: BP 110/73; PULSE 76; RESP 20; TEMP 36.4; O2SAT 95
--- NOTE | 2019-05-14 08:51 | PCM.PN.HOSP ---
Patient Problems: Active and Suspected Problems Acute cholecystitis (Suspected) Obstructive jaundice (Suspected) Subjective: Patient underwent ultrasound-guided paracentesis on 05/13/2019 with 650 of ascitic fluid taken out by interventional radiology Objective: GENERAL: Frail and ill-looking HEENT: Atraumatic; EYES; Anicteric, jaundiced NECK; supple, normal thyroid, RESPIRATORY: Diminished to auscultation CARDIOVASCULAR: Regular S1 S2, GI: non-tender, normoactive bowel sounds, markedly distended : No Renal angle tenderness; EXTREMITIES: no cyanosis. MUSCULOSKELETAL: muscle waisting NEURO: no lateralizing signs. SKIN: Jaundiced PSYCH; flat affect Vitals/I&O's: Vital Signs Temp Pulse Resp BP Pulse Ox 97.5 F L 76 20 H 110/73 95 05/14/19 07:49 05/14/19 07:49 05/14/19 07:49 05/14/19 07:49 05/14/19 07:49 Oxygen Delivery Method [2] Room Air Oxygen Delivery Method [1 ( Room Air Initial Baseline)] Oxygen Delivery Method Room Air Weight: 74.933 kg Body Mass Index (BMI) 21.8 Intake and Output for Last 24 Hours 05/12/19 05/13/19 05/14/19 23:59 23:59 23:59 Intake Total 3421 / 3421 2289 / 2289 944 / 944 Balance 3421 / 3421 2289 / 2289 944 / 944 Laboratory Results 05/14/19 05:18: WBC 8.9, RBC 3.82 L, Hgb 12.8 L, Hct 37.9 L, MCV 99.2 H, MCH 33.5 H, MCHC 33.8, RDW 18.6 H, RDW Differential 65.9 H, Plt Count 136 L, MPV 9.9, Immature Gran % (Auto) 1.300 H, Neut % (Auto) 79.8 H, Lymph % (Auto) 2.9 L, [place] % (Auto) 13.9 H, Eos % (Auto) 1.9, Baso % (Auto) 0.2, Absolute Neuts (auto) 7.1, Absolute Lymphs (auto) 0.26 L, Total Counted Not Reportable, Differential Comment SCAN, Polychromasia RARE, Anisocytosis 1+, Macrocytosis 1+ 05/14/19 05:18: Sodium 148 H, Potassium 3.4 L, Chloride 120 H, Carbon Dioxide 18.0 L, Anion Gap 10, BUN 17, Creatinine 1.84 H, Estim Creat Clear Calc 53.17, Est GFR (MDRD) Af Amer 51 L, Est GFR (MDRD) Non-Af 42 L, BUN/Creatinine Ratio 9.2 L, Glucose 114 H, Calcium 7.9 L Current Medications Ferr[facility] S[facility]) [facility] Admin: 05/13/19 08:16 Dose: 325 mg Documented by: Dextrose/Sodium Chloride (Dextrose 5%/0.9% Nacl) 1,000 mls @ 100 mls/hr IV .Q10H [facility] Last Admin: 05/14/19 03:08 Dose: 100 mls/hr Documented by: Thiamine HCl 100 mg/ Sodium (Chloride) 51 mls @ 200 mls/hr IV DAILY [facility] Last Admin: 05/13/19 08:32 Dose: 200 mls/hr Documented by: Folic Acid 1 mg/ Sodium (Chloride) 50.2 mls @ 200 mls/hr IV DAILY [facility] Last Admin: 05/13/19 08:15 Dose: 200 mls/hr Documented by: Pantoprazole Sodium 40 mg/ (Sodium Chloride) 110 mls @ 330 mls/hr IV Q24 [facility] Last Admin: 05/13/19 09:53 Dose: 330 mls/hr Documented by: Lactulose (Chronulac, Cephulac) 20 gm PO BID [facility] Last Admin: 05/13/19 21:39 Dose: 20 gm Documented by: Lorazepam (Ativan) 2 mg PO Q2H PRN PRN; Protocol PRN Reason: CIWA score > 8 but <15 Last Admin: 05/12/19 02:54 Dose: 2 mg Documented by: Lorazepam (Ativan) 2 mg PO UD PRN; Protocol PRN Reason: CIWA score >/=15. Lorazepam (Ativan) 2 mg IV Q2H PRN PRN; Protocol PRN Reason: CIWA score > 8 but <15 Last Admin: 05/10/19 11:30 Dose: 2 mg Documented by: Lorazepam (Ativan) 2 mg IV UD PRN; Protocol PRN Reason: CIWA score >/=15. Morphine Sulfate () 1 mg IV Q3H PRN PRN PRN Reason: Severe pain (7-10/10) Last Admin: 05/13/19 03:01 Dose: 1 mg Documented by: Multivitamins/Minerals (Multivitamin With Minerals) [facility] Last Admin: 05/13/19 08:16 Dose: 1 tablet Documented by: Nadolol (Corgard) 80 mg PO DAILY [facility] Last Admin: 05/13/19 08:16 Dose: 80 mg Documented by: Nutritional Formula (Lactose Free) (Ensure Enlive) 120 ml PO 4X/DAY [facility] Last Admin: 05/13/19 21:39 Dose: 120 ml Documented by: Ondansetron HCl (Zofran) 4 mg IV Q8H PRN PRN PRN Reason: NAUSEA/VOMITING Last Admin: 05/13/19 21:48 Dose: 4 mg Documented by: Potassium Chloride (K-Dur) 40 meq PO BIDCM [facility] Last Admin: 05/13/19 16:55 Dose: 40 meq Documented by: Sodium Chloride () 10 - 40 ml IV UD PRN PRN Reason: SALINE FLUSH Last Admin: 05/13/19 21:48 Dose: 10 ml Documented by: Medical Necessity - Tobacco Use Smoking Status: Current every day smoker Tobacco Use: Cigarettes Assessment/Plan Patient is a 48-year-old gentleman with history of chronic alcohol abuse with complications including cirrhosis of the liver with portal hypertension, 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 On assessment of acute liver failure secondary to alcoholic cirrhosis made admitted to the regular nursing floor for further management 1. Acute alcoholic hepatitis: Admitted to the regular nursing floor where patient is being treated. Patient overall condition remains guarded. ~05/14/2019; Patient underwent ultrasound-guided paracentesis on 05/13/2019 with 650 of ascitic fluid taken out by interventional radiology 2. Acute hepatic encephalopathy: Patient is on lactulose 3. Alcoholic cirrhosis of the liver with complications including gastroesophageal perigastric and splenorenal and retroperitoneal varices; patient has previous history of GI bleed currently on PPI also ordered therapeutic paracentesis for symptomatic relief 4. Hypokalemia being aggressively replaced. Ordered magnesium as well 5. Chronic alcohol abuse with acute withdrawal patient is on the pump 6. Chronic alcoholism; counseled on cessation 7. Tobacco dependence counseled on cessation, offered nicotine patch for tobacco cravings 8. Distended gallbladder with gallstones raises the possibility of acute cholecystitis. Patient was seen in consultation by Dr. Mccullough with general surgery patient is deemed to be high surgical risk at this point. His notes and recommendations reviewed we will continue with current conservative management. Disposition plan is for patient to be transferred to a an ECF with hospice pending insurance precertification Code Visit Inpatient E&M: 25564 Subs Hosp L2
[2019-05-14] MEDS: Morphine 2 MG/ML Syringe 1 MG IV ×2 (09:44→16:03)
[2019-05-14] MEDS: Lactulose 20 GM/30 ML UDC PO (09:45)
[2019-05-14] MEDS: Pantoprazole Sodium 40 MG Tablet PO (09:45)
[2019-05-14] MEDS: Ferrous Sulfate 325 MG Tablet PO (09:45)
[2019-05-14] MEDS: Nadolol 40 MG Tablet 80 MG PO (09:46)
--- NOTE | 2019-05-14 11:51 | CASEMGMT ---
Social Work Note SW received message from Porsha at pt's insurance asking for updated PT/OT.Porsha provided fax number ([phone]) and phone ([phone]). SW reviewed PT/OT and pt has not been able to participate in PT/OT last few days due to not being medically stable. MIN spoke with RN and asked if PT/OT could work with pt today. RN called PT/OT to see pt today. MIN will fax updated PT/OT when available. Kyleigh Oh DYE BOARDING MACHINE OPERATOR, TELEPHONE CLAIMS REPRESENTATIVE
--- NOTE | 2019-05-14 13:26 | CASEMGMT ---
Social Work Note MIN spoke with Fina at [facility]. Fina states that pt's family will need to officially sign with hospice and then hospice will need to be in contact with pt's insurance about coverage at SNF. MIN received message from pt's sister Nicolle stating pt's father and other sister will be coming to [facility] around 1:30-2:00pm and asked for update. MIN discussed with RN who states it could be beneficial for Hospice to reevluate pt as pt is now no longer eating or drinking. MIN informed RN that if pt's family is wanting pt to go to SNF with Hospice then they will need to meet with Hospice again regardless to sign papers. RN called [facility] and RN will discuss case with Dr. Sanchez. MIN waiting for pt's father and sister to arrive at [facility] and will speak with them once they arrive. Kyleigh Oh MANAGER SOUND, AWNING ERECTOR
[2019-05-14 13:30] VITALS: BP 106/70; PULSE 76; RESP 20; TEMP 36.8; O2SAT 95
--- NOTE | 2019-05-14 15:22 | CASEMGMT ---
Social Work Note MIN met with pt's father Jorge. Jorge confirms that he would like to sign paperwork for Hospice for pt. MIN updated Jorge on update on pt in regards to discharge planning including paperwork for Hospice will need to be signed before skilled nursing and hospice is able to work on getting prior auth for pt to go to SNF with Hospice. MIN informed Jorge that this worker is not sure however if pt's Kelley will cover room & board at SNF. Jorge states that wherever pt goes everything will need to be covered 100% as he is not able to afford private pay for anything. MIN informed Jorge that this worker is working on every angle possible for pt. MIN informed Jorge again that per [facility] they don't accept pt's insurance so getting a SNF in [place] with Hospice will be unlikely as the Hospice in [place] don't take pt's insurance. Jorge states understanding, states that first choice for SNF with Hospice is [facility]. Jorge states that he went to [facility] before coming to [facility] and they are able to accept pt with Hospice. MIN informed Jorge that this worker is aware of that but again the issue is coming up with paying for room and board. Jorge states understanding and is agreeable to [facility] coming to [facility] and he will sign Hospice Paperwork. MIN placed a call to [facility] and spoke with RANDI Reis. Smiley states that Mary will be at [facility] within the next half hour and will complete Hospice paperwork with pt's father. RANDI Reis also asking for updated clinicals to present updated clinicals to Dr. Sanchez. RANDI Reis spoke with RANDI Ramirez at [facility] who states it will likely come down to physician doing physician to physician report to try and get pt to inpatient hospice. MIN faxed updated clinicals to RANDI Reis at [facility]. RANDI Ramirez updated this worker that physician did physician to physician with Dr. Sanchez and pt is able to go to inpatient hospice today. MIN updated Mary with [facility] of this who is meeting with pt's family now. Plan: Inpatient unit at [facility] today Kyleigh Oh DRAWER IN, MAJOR GIFTS OFFICER
[2019-05-14] MEDS: 0.9% NaCl Peripheral Flush Adult/Peds IV (16:03)
[2019-05-14] MEDS: Menthol/Lanolin/Calamine/Znox 113 GM Tube 1 APPLIC TOPICAL (16:03)
--- NOTE | 2019-05-14 16:08 | DCINST_ITS ---
You will use the following diet at home:: No restrictions Discharge Activity: No Restrictions Allergies/Adverse Reactions: Allergies No Known Allergies Allergy (Verified 05/08/19 23:16) Medications to take at Discharge Multivitamins,Ther W-Minerals [Multivitamin With Minerals] 1 tablet PO DAILY 08/13/14 Chlorthalidone 25 mg PO DAILY 05/09/19 Ferrous Sulfate 325 mg PO DAILY 05/09/19 Nadolol 80 mg PO DAILY 05/09/19 Prednisone 10 mg PO PRN PRN 05/09/19 Primary Care Physician: Osorio Hastings DO [Primary Care Provider] - Test Results: Test results from this visit will be discussed in further detail at your follow- up appointment, if applicable. Please Follow Up With: Osorio Hastings When: Sunday Proposed Discharge Date: 05/14/19
--- NOTE | 2019-05-14 16:13 | PCM.DC.SUM ---
Discharge Date and Diagnosis - Problem List Patient Problems: Active and Suspected Problems Acute cholecystitis (Acute) Obstructive jaundice (Acute) Date of Admission: 05/09/19 Date of Discharge: 05/14/19 - Primary Discharge Diagnosis Active and Suspected Problems Acute cholecystitis (Acute) Obstructive jaundice (Acute) - Secondary Discharge Diagnosis Chronic Problems Thrombocytopenia (Chronic) Esophageal varices (Chronic) Alcoholism (Chronic) Depression (Chronic) Hypertension (Chronic) Hospital Course and Treatment Operations: None Summary of Care Provided: Patient is a 48-year-old gentleman with history of chronic alcohol abuse with complications including cirrhosis of the liver with portal hypertension, 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 On assessment of acute liver failure secondary to alcoholic cirrhosis made admitted to the regular nursing floor for further management 1. Acute alcoholic hepatitis: Admitted to the regular nursing floor patient was treated. Patient condition deteriorated despite optimal treatment. Held family meeting family meeting with patient's dad and his sister, CODE STATUS was changed to DNR CC. Patient was transferred to hospice in the medical facility on 05/14/2019 ~05/14/2019; Patient underwent ultrasound-guided paracentesis on 05/13/2019 with 650 of ascitic fluid taken out by interventional radiology 2. Acute hepatic encephalopathy: Patient is on lactulose 3. Alcoholic cirrhosis of the liver with complications including gastroesophageal perigastric and splenorenal and retroperitoneal varices; patient has previous history of GI patient was managed with PPI. Underwent therapeutic thoracocentesis on 05/13/2019 with 650 mL of ascitic fluid taken out by interventional radiology 4. Hypokalemia repleted per protocol 5. Chronic alcohol abuse with acute withdrawal was managed with Librium 6. Chronic alcoholism; counseled on cessation 7. Tobacco dependence counseled on cessation, offered nicotine patch for tobacco cravings 8. Distended gallbladder with gallstones raises the possibility of acute cholecystitis. Patient was seen in consultation by Dr. Mccullough with general surgery patient is deemed to be high surgical risk at this point. He recommended conservative management only Patient Problems: Active and Suspected Problems Acute cholecystitis (Acute) Obstructive jaundice (Acute) - Physical Exam General: Lethargic HEENT: Atraumatic Lungs: Diminished Cardiovascular: Regular rate, Regular Rhythm Abdomen: Distended Vital Signs Temp Pulse Resp BP Pulse Ox 98.3 F 76 20 H 106/70 95 05/14/19 13:30 05/14/19 13:30 05/14/19 13:30 05/14/19 13:30 05/14/19 13:30 Oxygen Delivery Method [2] Room Air Oxygen Delivery Method [1 ( Room Air Initial Baseline)] Oxygen Delivery Method Room Air Weight: 74.933 kg Body Mass Index (BMI) 21.8 Intake and Output for Last 24 Hours 05/12/19 05/13/19 05/14/19 23:59 23:59 23:59 Intake Total 3421 / 3421 2289 / 2289 1402 / 1402 Balance 3421 / 3421 2289 / 2289 1402 / 1402 Laboratory Tests Past 24 Hrs 05/14/19 05/14/19 05:18 05:18 WBC 8.9 RBC 3.82 L Hgb 12.8 L Hct 37.9 L MCV 99.2 H MCH 33.5 H MCHC 33.8 RDW 18.6 H RDW Differential 65.9 H Plt Count 136 L MPV 9.9 Immature Gran % (Auto) 1.300 H Neut % (Auto) 79.8 H Lymph % (Auto) 2.9 L [place]ell % (Auto) 13.9 H Eos % (Auto) 1.9 Baso % (Auto) 0.2 Absolute Neuts (auto) 7.1 Absolute Lymphs (auto) 0.26 L Total Counted Not Reportable Differential Comment SCAN Polychromasia RARE Anisocytosis 1+ Macrocytosis 1+ Sodium 148 H Potassium 3.4 L Chloride 120 H Carbon Dioxide 18.0 L Anion Gap 10 BUN 17 Creatinine 1.84 H Estim Creat Clear Calc 53.17 Est GFR (MDRD) Af Amer 51 L Est GFR (MDRD) Non-Af 42 L BUN/Creatinine Ratio 9.2 L Glucose 114 H Calcium 7.9 L Discharge Activity: No Restrictions Home Medications: Medications to take at Discharge Multivitamins,Ther W-Minerals [Multivitamin With Minerals] 1 tablet PO DAILY 08/13/14 Chlorthalidone 25 mg PO DAILY 05/09/19 Ferrous Sulfate 325 mg PO DAILY 05/09/19 Nadolol 80 mg PO DAILY 05/09/19 Prednisone 10 mg PO PRN PRN 05/09/19 Primary Care Physician: Osorio Hastings DO [Primary Care Provider] - Please Follow Up With: Osorio Hastings When: Sunday Disposition: Hospice Medical Facility Minutes spent on discharge:: 45 Patient Condition:: Poor Medical Necessity - Tobacco Use Smoking Status: Current every day smoker Tobacco Use: Cigarettes Meaningful Use Info Meaningful Use Diagnoses (Choose all that apply): None applicable Code Visit Inpatient E&M: 62187 Disch Hosp
--- NOTE | 2019-05-14 16:38 | NURSING ---
report called to Sakshi in [facility] inpatient [facility] unit. pt to be transported via cot a 1700
--- NOTE | 2019-05-14 16:43 | CASEMGMT ---
Social Work Note Discharge order is in and pt is able to discharge to inpatient hospice tonight. MIN faxed discharge summary and instructions to [facility]. MIN arranged transportation through [facility] via cot for 5:00pm. Transportation form on folder and copy on pt's chart. MIN updated RN and placed a call to RANDI Reis at [facility] to update on transportation time. MIN placed a call to Fina at [facility] and Emmanuelle at [facility] to update that pt will be discharged to [facility] today. MIN placed a call to pt's sister Sofiya and updated her on discharge plan and transportation time. Sofiya states she was also updated by her sister as well. Plan: Discharge to inpatient hospice at [facility] today with [facility] transporting via cot at 5:00pm Kyleigh AVITIA, ODIN
== END 2019-05-14 17:12 | disposition hospice, inpatient (51) | DRG 280 ==
LOC: ED 23:44 → MS3 05-09 02:08
PROVIDERS: Internal Medicine; Admitting Provider Hospitalist; Emergency Provider Emergency Medicine; Family Provider Family Medicine; PCP Family Medicine; Visit Provider Internal Medicine
DX: K70.40 Alcoholic hepatic failure without coma (principal); K70.11 Alcoholic hepatitis with ascites; K70.31 Alcoholic cirrhosis of liver with ascites; E87.6 Hypokalemia; E87.1 Hypo-osmolality and hyponatremia; F10.239 Alcohol dependence with withdrawal, unspecified; I10 Essential (primary) hypertension; F17.210 Nicotine dependence, cigarettes, uncomplicated; Z51.5 Encounter for palliative care; Z66 Do not resuscitate; K80.20 Calculus of gallbladder without cholecystitis without obstruction; K76.6 Portal hypertension; I85.10 Secondary esophageal varices without bleeding; D69.6 Thrombocytopenia, unspecified; D64.9 Anemia, unspecified; R21 Rash and other nonspecific skin eruption; D68.4 Acquired coagulation factor deficiency; I86.8 Varicose veins of other specified sites
CPT/HCPCS: 36415; 49083; 74019; 74177; 80048; 80053; 80076; 80320; 82140; 83690; 83735; 85014; 85018; 85025; 85610; 97110; 97162; 97166; 97530; 99284; 99406; J7030; Q9967; A4216; G0480; J2405; J3490